=== PATIENT | male | born 1935 | race Caucasian/White ===

== ENCOUNTER → 2017-01-14 | Outpatient (CLI) | payer OTHER ==
[~2017-01-14] MED LIST: ASPI81TA28 PO; ATOR-24 PO; ATOR-26 PO; CLOP1TAB15 PO; FERR1TAB24 PO; FURO20TA PO; INSDGI SC; LEVO750T23 PO; LSN5 PO; LSX20 PO; LSX40 PO; METO1TAB69 PO
[2017-01-14 09:33] LABS: BASO % 0.3 %; BASO ABS # 0.02 K/uL (0-0.2); COMPLETE YES; EOS % 1.9 %; HEMATOCRIT 42.4 % (42-52); LYMPH % 16.6 %; LYMPH ABS # 1.03 K/uL (1.2-3.4); MEAN CELL VOLUME 99.5 fL (80-100); MEAN CORPUSCULAR HGB CONC 34.2 g/dl (32-36); MEAN PLATELET VOLUME 12.2 fL (7.4-10.4); NEUT % 72.2 %; PLATELET COUNT 163 K/uL (130-400); RED BLOOD COUNT 4.26 M/uL (4.7-6.1); WHITE BLOOD COUNT 6.21 K/uL (4.8-10.8)
[2017-01-14 11:44] LABS: ALT/SGPT 66 U/L (12-78); AST/SGOT 24 U/L (15-37); BLOOD UREA NITROGEN 36 mg/dl (7-18); BUN/CREATININE RATIO 22.6 (10-20); CALCIUM 8.9 mg/dl (8.5-10.1); CARBON DIOXIDE 26 mmol/L (21-32); CHLORIDE 96 mmol/L (98-107); GLUCOSE 183 mg/dl (70-99); MAGNESIUM 2.5 mg/dl (1.8-2.4); POTASSIUM 4.4 mmol/L (3.5-5.1); SODIUM 132 mmol/L (136-145)
[2017-01-14 11:50] LABS: ALB/GLOB RATIO 1.2 (0.9-2); ALKALINE PHOSPHATASE 88 U/L (45-117); CHOLESTEROL 105 mg/dl (0-200); CHOLESTEROL/HDL RATIO 2.4; HDL CHOLESTEROL 43 mg/dl; LDL CHOLESTEROL CALCULATED 49 mg/dl; TRIGLYCERIDES 63 mg/dl (0-150); VERY LOW DENSITY LIPOPROT CALC 13 mg/dl
== END | disposition home or self-care (01) ==
LOC: C.LAB1850 08:04
PROVIDERS: ATTEND Internal Medicine
DX: E11.9 Type 2 diabetes mellitus without complications (principal); I25.10 Atherosclerotic heart disease of native coronary artery without angina pectoris; N18.9 Chronic kidney disease, unspecified

== ENCOUNTER 2017-01-27 10:45 | Inpatient (IN) | payer OTHER ==
[~2017-01-27] VITALS: Ht 177.8 cm; Wt 65.9 kg
[~2017-01-27 10:45] MED LIST changes: -ATOR-26 PO; -LEVO750T23 PO; -LSX20 PO; -LSX40 PO
[2017-01-27] MEDS ORDERED: INSDGI SC ×2 (11:14)
[2017-01-27] MEDS ORDERED: ATOR-26 PO (11:15)
[2017-01-27] MEDS ORDERED: LSX40 PO (11:16)
[2017-01-27 11:52] LABS: COMPLETE YES; EOS % 0.1 %; HEMATOCRIT 43.1 % (42-52); IG% 0.1 %; MEAN PLATELET VOLUME 12.3 fL (7.4-10.4); MONO % 11.4 %; NEUT % 83.4 %; PLATELET COUNT 141 K/uL (130-400); RED BLOOD COUNT 4.31 M/uL (4.7-6.1); WHITE BLOOD COUNT 8.04 K/uL (4.8-10.8)
--- NOTE | 2017-01-27 12:01 | DIAGNOSTIC IMAGING REPORT ---
TWO VIEW CHEST CLINICAL HISTORY: Dyspnea. FINDINGS: PA and lateral chest radiographs are compared to study dated 03/14/2016 and correlated with chest CT dated 10/12/2015. A 3-lead cardiac AICD is unchanged in position and partially obscures the left mid chest. The heart is enlarged and there is atherosclerotic calcification of the thoracic aorta. The pulmonary vasculature is noncongested. Enlargement of the central pulmonary arteries suggests pulmonary hypertension. Chronic interstitial thickening is unchanged. There are layering pleural effusions with bibasilar consolidation. The upper lobes appear clear. There is no pneumothorax. The skeletal structures are osteopenic. Degenerative change is noted throughout the thoracic spine. IMPRESSION: 1. Cardiomegaly and AICD. There is no radiographic evidence of congestive failure. 2. Pleural effusions with bibasilar consolidation. This likely represents atelectasis. Correlate clinically for evidence of superimposed pneumonia. Electronically signed by: Uday Bae M.D. 01/27/2017 11:59 AM Dictated Date/Time: 01/27/2017 11:58 AM
[2017-01-27 12:16] LABS: BUN/CREATININE RATIO 37.6 (10-20); CALCIUM 8.8 mg/dl (8.5-10.1); CREATININE 1.9 mg/dl (0.60-1.40)
[2017-01-27] MEDS ORDERED: SODIUM CHLORIDE 0.9% 1000ML 1,000 ML IV STA (12:24)
[2017-01-27 12:29] LABS: CKMB/CK RATIO 2.1 (0-3.0)
[2017-01-27] MEDS ORDERED: ALUMINUM/MAGNESIUM/SIMETH (MAALOX MAX) 30 ML UDC PO PRN (12:30)
[2017-01-27] MEDS ORDERED: ONDANSETRON INJ 2 MG/ML 2 ML VIAL IV PRN (12:30)
[2017-01-27 12:59] VITALS: O2SAT 96; Ht 177.8 cm; Wt 65.9 kg
--- NOTE | 2017-01-27 13:27 | History and Physical ---
History & Physical Date & Time of Service: Jan 27, 2017 at 12:55 Chief Complaint: Sob,No Appetitie Primary Care Physician: Nini Quick PA-C History of Present Illness Source: patient, caregiver, clinic records, hospital records This patient is a 81-year-old male with a history of ischemic cardiomyopathy with an EF of 21% presents the emergency room complaining of worsening shortness of breath over the course of the last 2 weeks. The patient is accompanied by his guardian, Jackeline. 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 His symptoms have not improved. Jackeline also noticed a mild cough and significantly decreased appetite over the last several days. No reported fever. The patient also has a history of CVA and hearing loss. Obtaining any history from him is difficult. From what I can gather, he is complaining of feeling somewhat short of breath. He denies any chest pain or pressure. He denies any abdominal pain , nausea or vomiting. In the emergency department, patient's total bilirubin is noted to be elevated at 1.9. Direct bilirubin is 0.6. Transaminases are also elevated. Lipase is normal. No white count noted. Patient's creatinine is slightly worse when compared to prior at 1.9. Chest x-ray is notable for a right lower lobe infiltrate and bilateral pleural effusions right greater than left. 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) Immunizations History of Influenza Vaccine: No History of Tetanus Vaccine?: No History of Pneumococcal: No History of Hepatitis B Vaccine: No Multi-Drug Resistant Organisms History of MDRO: No Allergies Coded Allergies: No Known Allergies (Verified , 03/11/16) Home Medications Scheduled Aspirin (Aspirin Ec), 81 MG PO QAM Atorvastatin (Lipitor), 80 MG PO QAM Clopidogrel (Plavix), 75 MG PO QAM Ferrous Sulfate (Feosol), 1 TAB PO BIDM Furosemide (Furosemide), 40 MG PO QAM Metoprolol Succ (Toprol Xl) (Toprol-Xl ), 100 MG PO DAILY Scheduled PRN Insulin Glargine (Lantus), 8 UNITS SC QAM PRN for PRN Insulin Glargine (Lantus), 13 UNIT SC QPM PRN for PRN Review of Systems 10 system review performed and negative unless noted in HPI or below Physical Exam Vital Signs Date Time Temp Pulse Resp B/P Pulse Ox O2 Delivery O2 Flow Rate FiO2 01/27/17 12:27 36.3 77 18 100/71 96 Nasal Cannula 2.0 01/27/17 12:16 75 01/27/17 11:24 100 Nasal Cannula 2.0 01/27/17 11:12 100 Nasal Cannula 2.0 01/27/17 11:04 69 01/27/17 11:02 92 Room Air 01/27/17 10:49 74 22 116/83 96 Room Air VITALS: Vitals are noted on the nurse's note and reviewed by myself. Vital signs stable. GENERAL: 81-year-old male, ill in appearance, in no apparent distress, pleasant SKIN: Mildly jaundiced HEAD: Normocephalic atraumatic. EYES: Pupils equal round and reactive to light and accommodation. Conjunctivae icteric. Extraocular movements intact. MOUTH: Mucous membranes dry. No exudate noted. NECK: JVD noted. No lymphadenopathy HEART: Regular rate and rhythm without murmurs gallops or rubs. LUNGS: Decreased breath sounds at the bases bilaterally. No wheezing. No tachypnea or accessory muscle use noted. Saturating at 87% on 2 L. ABDOMEN: Positive bowel sounds x 4.Soft, nontender, + hepatomegaly. No guarding or rebound tenderness. MUSCULOSKELETAL: +1 pitting edema noted in the lower extremity is bilaterally. No erythema or tenderness appreciated. NEURO: Patient was alert and oriented to person and place. No focal motor deficits noted. Diagnostics Laboratory Results 01/27/17 11:35 Red Blood Count 4.31, Mean Corpuscular Volume 100.0, Mean Corpuscular Hemoglobin 35.0, Mean Corpuscular Hemoglobin Concent 35.0, Mean Platelet Volume 12.3, Neutrophils (%) (Auto) 83.4, Lymphocytes (%) (Auto) 5.0, Monocytes (%) ( Auto) 11.4, Eosinophils (%) (Auto) 0.1, Basophils (%) (Auto) 0.0, Neutrophils # (Auto) 6.70, Lymphocytes # (Auto) 0.40, Monocytes # (Auto) 0.92, Eosinophils # ( Auto) 0.01, Basophils # (Auto) 0.00 01/27/17 11:35 Test 01/27/17 11:35 01/27/17 13:12 White Blood Count 8.04 K/uL (4.8-10.8) Red Blood Count 4.31 M/uL (4.7-6.1) Hemoglobin 15.1 g/dL (14.0-18.0) Hematocrit 43.1 % (42-52) Mean Corpuscular Volume 100.0 fL (80-100) Mean Corpuscular Hemoglobin 35.0 pg (25-34) Mean Corpuscular Hemoglobin Concent 35.0 g/dl (32-36) Platelet Count 141 K/uL (130-400) Mean Platelet Volume 12.3 fL (7.4-10.4) Neutrophils (%) (Auto) 83.4 % Lymphocytes (%) (Auto) 5.0 % Monocytes (%) (Auto) 11.4 % Eosinophils (%) (Auto) 0.1 % Basophils (%) (Auto) 0.0 % Neutrophils # (Auto) 6.70 K/uL (1.4-6.5) Lymphocytes # (Auto) 0.40 K/uL (1.2-3.4) Monocytes # (Auto) 0.92 K/uL (0.11-0.59) Eosinophils # (Auto) 0.01 K/uL (0-0.5) Basophils # (Auto) 0.00 K/uL (0-0.2) RDW Standard Deviation 54.2 fL (36.4-46.3) RDW Coefficient of Variation 15.2 % (11.5-14.5) Immature Granulocyte % (Auto) 0.1 % Immature Granulocyte # (Auto) 0.01 K/uL (0.00-0.02) Anion Gap 9.0 mmol/L (3-11) Est Creatinine Clear Calc Drug Dose 28.5 ml/min Estimated GFR () 38.0 Estimated GFR (Non- 32.8 BUN/Creatinine Ratio 37.6 (10-20) Calcium Level 8.8 mg/dl (8.5-10.1) Magnesium Level 3.0 mg/dl (1.8-2.4) Total Bilirubin 1.9 mg/dl (0.2-1) Direct Bilirubin 0.6 mg/dl (0-0.2) Aspartate Amino Transf (AST/SGOT) 97 U/L (15-37) Alanine Aminotransferase (ALT/SGPT) 363 U/L (12-78) Alkaline Phosphatase 136 U/L (45-117) Lactate Dehydrogenase 251 U/L (87-241) Total Creatine Kinase 71 U/L (39-308) Creatine Kinase MB 1.5 ng/ml (0.5-3.6) Creatine Kinase MB Ratio 2.1 (0-3.0) Troponin I 0.214 ng/ml (0-0.045) Total Protein 7.0 gm/dl (6.4-8.2) Albumin 3.5 gm/dl (3.4-5.0) Lipase 260 U/L (73-393) Results Past 24 Hours Test 01/27/17 11:35 01/27/17 12:39 Range/Units White Blood Count 8.04 4.8-10.8 K/uL Red Blood Count 4.31 4.7-6.1 M/uL Hemoglobin 15.1 14.0-18.0 g/dL Hematocrit 43.1 42-52 % Mean Corpuscular Volume 100.0 80-100 fL Mean Corpuscular Hemoglobin 35.0 25-34 pg Mean Corpuscular Hemoglobin Concent 35.0 32-36 g/dl Platelet Count 141 130-400 K/uL Mean Platelet Volume 12.3 7.4-10.4 fL Neutrophils (%) (Auto) 83.4 % Lymphocytes (%) (Auto) 5.0 % Monocytes (%) (Auto) 11.4 % Eosinophils (%) (Auto) 0.1 % Basophils (%) (Auto) 0.0 % Neutrophils # (Auto) 6.70 1.4-6.5 K/uL Lymphocytes # (Auto) 0.40 1.2-3.4 K/uL Monocytes # (Auto) 0.92 0.11-0.59 K/uL Eosinophils # (Auto) 0.01 0-0.5 K/uL Basophils # (Auto) 0.00 0-0.2 K/uL RDW Standard Deviation 54.2 36.4-46.3 fL RDW Coefficient of Variation 15.2 11.5-14.5 % Immature Granulocyte % (Auto) 0.1 % Immature Granulocyte # (Auto) 0.01 0.00-0.02 K/uL Sodium Level 140 136-145 mmol/L Potassium Level 4.0 3.5-5.1 mmol/L Chloride Level 102 98-107 mmol/L Carbon Dioxide Level 29 21-32 mmol/L Anion Gap 9.0 3-11 mmol/L Blood Urea Nitrogen 71 7-18 mg/dl Creatinine 1.90 0.60-1.40 mg/dl Est Creatinine Clear Calc Drug Dose 28.5 ml/min Estimated GFR () 38.0 Estimated GFR (Non- 32.8 BUN/Creatinine Ratio 37.6 10-20 Random Glucose 232 70-99 mg/dl Calcium Level 8.8 8.5-10.1 mg/dl Magnesium Level 3.0 1.8-2.4 mg/dl Total Bilirubin 1.9 0.2-1 mg/dl Direct Bilirubin 0.6 0-0.2 mg/dl Aspartate Amino Transf (AST/SGOT) 97 15-37 U/L Alanine Aminotransferase (ALT/SGPT) 363 12-78 U/L Alkaline Phosphatase 136 45-117 U/L Lactate Dehydrogenase 251 87-241 U/L Total Creatine Kinase 71 39-308 U/L Creatine Kinase MB 1.5 0.5-3.6 ng/ml Creatine Kinase MB Ratio 2.1 0-3.0 Troponin I 0.214 0-0.045 ng/ml Total Protein 7.0 6.4-8.2 gm/dl Albumin 3.5 3.4-5.0 gm/dl Lipase 260 73-393 U/L Microbiology Results 01/27/17 Blood Culture, Dean Batch Pending 01/27/17 Blood Culture, Dean Batch Pending Diagnostic Radiology TWO VIEW CHEST CLINICAL HISTORY: Dyspnea. FINDINGS: PA and lateral chest radiographs are compared to study dated 03/14/2016 and correlated with chest CT dated 10/12/2015. A 3-lead cardiac AICD is unchanged in position and partially obscures the left mid chest. The heart is enlarged and there is atherosclerotic calcification of the thoracic aorta. The pulmonary vasculature is noncongested. Enlargement of the central pulmonary arteries suggests pulmonary hypertension. Chronic interstitial thickening is unchanged. There are layering pleural effusions with bibasilar consolidation. The upper lobes appear clear. There is no pneumothorax. The skeletal structures are osteopenic. Degenerative change is noted throughout the thoracic spine. IMPRESSION: 1. Cardiomegaly and AICD. There is no radiographic evidence of congestive failure. 2. Pleural effusions with bibasilar consolidation. This likely represents atelectasis. Correlate clinically for evidence of superimposed pneumonia. Electronically signed by: Uday Bae M.D. 01/27/2017 11:59 AM Dictated Date/Time: 01/27/2017 11:58 AM The status of this report is Signed. Draft = Not yet reviewed or approved by Radiologist. Signed = Reviewed and approved by Radiologist. <AttendingPhy></AttendingPhy> <FamilyPhy>Nini Quick PA-C</FamilyPhy> < PrimaryPhy>Nini Quick PA-C</PrimaryPhy> <UnitNumber>[id number]</ UnitNumber> <VisitNumber>[id number]</VisitNumber> <PatientName>HEATHER SMITH </PatientName> <DateOfBirth>1935</DateOfBirth> <Location>[facility]</Location> <ServiceDate>01/27/17</ServiceDate> <MNE>ESINDI</MNE> <OrderingPhy>Leni Conner D.O.</OrderingPhy> <OrderingPhyMNE>f rep ord dr srivastava</OrderingPhyMNE> < DictatingPhyMNE>f rep dict dr srivastava</DictatingPhyMNE> <CCListMNE>f rep ct atif</ CCListMNE> <AdmittingPhyMNE>f pt admit dr srivastava</AdmittingPhyMNE> <AttendingPhyMNE >f pt attend dr srivastava</AttendingPhyMNE> <ConsultingPhyMNE>f pt consult dr srivastava</ConsultingPhyMNE> <FamilyPhyMNE>f pt fam dr srivastava</FamilyPhyMNE> <OtherPhyMNE>f pt other dr srivastava</OtherPhyMNE> < PrimaryPhyMNE>f pt prim care EKG Dual paced rhythm Rate 76 bpm Impression Assessment and Plan 81-year-old male presents emergency department with main complaint of shortness of breath--? PNA vs possible pneuomonitis, dehydration, ARF, hepatitis Pneumonia -admit to telemetry -Start rocephin, azithromycin -send influenza -O2 pr for sat > 90% -Consider swallow eval if pt is coughing while eating/drinking Hepatitis-? secondary to viral illness vs chemical irritation. Elevated indirect bili. -trend LFTs -hold statin -liver US -check mono Ischemic cardiomyopathy, Chronic systolic CHF. EF 20 % -Hold today's dose of lasix -monitor I&O's Elevated troponin-no chest pain. Likely secondary to renal fxn. Also elevated in february 2016 -monitor in tele -trend enzymes Acute on Chronic Kidney disease stage III-baseline cr 1.6 -hold lasix -monitor PRP CAD hx CA -continue metoprolol ER 100 mg daily, ASA 81 mg daily, Plavix 75 mg daily DM-pt noncompliant with Lantus at home -Prescribed Lantus 8 u in the morning and 13 u at night-->has not been taking. Will continue to hold -ISS -ADA diet DVT prophylaxis -heparin 5000 u subQ BID -TEDS, SCDs CODE STATUS -LEVEL V DO NO RESUSCITATE PA Physician Supervision Note: I interviewed and examined the patient. Discussed with Roma Mosley PAC and agree with findings and plan as documented in the note. Any exceptions or clarifications are listed here: PT presents with decreased appetite, appearing jaundice and hepatic irritation, does take atorvostatin. Has [employer]LECT[employer]ER with small b/l pleural effusions. Has RLL changes on cxr and due to previous stroke has some dysphagia, question if pneumoina vitals reviewed Chest with reg car with murmur, lungs have decrease bs right base and fine rales just at bases abd is soft , liver edge is palpable and non tender labs show elevated indirect bili, transaminases and alk phos and acute renal failure on ckd3 A/P 81 M with hepatitis presumed to be chemical from statin, RLL pneumonia and lew Hepatitis, stop statin, check viral titres RLL pneumonia, no real sx some cough, ceftriaxone and azithro, mech soft diet ? swallow eval AKF, hold lasix, hesitant to give more fluid that ER bolus given [employer] and fact that pt has peripheral LE edema and some JVD DM, pt usually does not take lantus as RX, will use ssi and diabetic diet pt is a DNR Documented By: Anant Zhang Level of Care Telemetry Resuscitation Status DO NOT RESUSCITATE VTE Prophylaxis VTE Risk Assessment Done? Y/N: Yes Risk Level: Moderate Given or contraindicated: Unfractionated heparin SQ, T.E.D. Stockings, SCD's
[2017-01-27] MEDS ORDERED: GLUCOSE 40% GEL 15 GM TUBE PO PRN (14:15)
[2017-01-27] MEDS ORDERED: DEXTROSE 50% 50 ML SYR IV PRN (14:15)
[2017-01-27] MEDS ORDERED: GLUCAGON FOR INJ 1 MG VIAL SQ PRN (14:15)
[2017-01-27] MEDS ORDERED: GLUCOSE 10 TABS/TUBE PO PRN (14:15)
[2017-01-27 14:52] LABS: URINE APPEARANCE CLEAR (CLEAR); URINE BILIRUBIN NEG (NEG); URINE COLOR YELLOW; URINE EPITHELIAL CELL AUTO >30 /lpf (0-5); URINE NITRITE NEG (NEG); URINE SPECIFIC GRAVITY 1.012 (1.000-1.030); UROBILINOGEN NEG (NEG)
[2017-01-27] MEDS ORDERED: AZITHROMYCIN IV 500 MG in DEXTROSE 5% 250ML 250 ML IV SCH (15:00)
[2017-01-27] MEDS: CEFTRIAXONE SOD INJ 1 GM in DEXTROSE 5% ADD-VANTAGE 50ML 50 ML IV SCH (15:05)
[2017-01-27 15:09] LABS: MANUAL MICROSCOPIC REQUIRED? NO; REVIEW REQ? YES
[2017-01-27 15:20] VITALS: BP 119/79; PULSE 61; TEMP 36.5; O2SAT 97
--- NOTE | 2017-01-27 15:26 | DIAGNOSTIC IMAGING REPORT ---
ULTRASOUND RIGHT UPPER QUADRANT ABDOMEN CLINICAL HISTORY: Jaundice. Elevated bilirubin. COMPARISON STUDY: Abdominal ultrasound dated 10/08/2015. TECHNIQUE: Real-time, grayscale, and color flow sonography of the right upper quadrant of the abdomen was performed. Images are reviewed in the transverse and longitudinal planes. FINDINGS: Liver: The liver is normal in size and demonstrates heterogeneously increased echotexture consistent with hepatic steatosis. Fatty sparing is noted adjacent to gallbladder fossa. There is no intrahepatic biliary ductal dilatation. The main portal vein is patent. Gallbladder: Mobile calcified gallstones are identified. There is nonspecific gallbladder wall thickening which measures up to 4 mm. A sonographic Blandon's sign is reportedly absent. Nonspecific fluid is seen adjacent to the liver. The common bile duct measures up to 0.4 cm in diameter. Pancreas: Visualized portions of the pancreatic head and body are normal in appearance. Right kidney: Survey images of the right kidney demonstrate mild cortical atrophy. There is no hydronephrosis. Right renal cysts are identified and measure up to 4.6 cm, some of which are minimally complex. Ascites: There is trace perihepatic ascites. Pleural spaces: A right pleural effusion is identified. IMPRESSION: 1. Hepatic steatosis. 2. Cholelithiasis. There is nonspecific gallbladder wall thickening which may be related to adjacent hepatocellular disease and/or ascites. There is no convincing sonographic evidence of acute cholecystitis. If there is strong clinical concern for acute cholecystitis then a nuclear hepatobiliary scan should be considered to assess for patency of the cystic duct. 3. Right pleural effusion. 4. Small volume of abdominal ascites. Electronically signed by: Uday Bae M.D. 01/27/2017 3:24 PM Dictated Date/Time: 01/27/2017 3:21 PM
[2017-01-27 15:30] LABS: INR 1.3 (0.9-1.1); PARTIAL THROMBOPLASTIN RATIO 1.1; PROTHROMBIN TIME (PATIENT) 13.5 SECONDS (9.0-12.0)
[2017-01-27 16:00] VITALS: O2SAT 95
[2017-01-27] MEDS ORDERED: SODIUM CHLORIDE 0.9% 500ML 500 ML IV SCH (16:00)
[2017-01-27] MEDS: INSULIN ASPART 100 UNITS/ML 3 ML PEN SC SCH ×3 (16:29→20:38)
[2017-01-27 17:18] LABS: INFLUENZA A PCR Neg for Influ A (NEG); INFLUENZA B PCR Neg for Influ B (NEG)
[2017-01-27 19:15] VITALS: BP 93/63; PULSE 70; TEMP 36.3; O2SAT 97
[2017-01-27 20:00] VITALS: O2SAT 97
[2017-01-27] MEDS: HEPARIN SOD 5000 UNIT/0.5 ML CARP SQ SCH (20:38)
[2017-01-28] VITALS (8 sets, daily range): BP systolic 86–110; BP diastolic 72–110; PULSE 64–86; TEMP 36.3–36.6; O2SAT 92–99
[2017-01-28 06:35] LABS: BUN/CREATININE RATIO 36.4 (10-20); CALCIUM 8.7 mg/dl (8.5-10.1); CREATININE 1.9 mg/dl (0.60-1.40)
[2017-01-28] MEDS: INSULIN ASPART 100 UNITS/ML 3 ML PEN SC SCH ×4 (07:00→20:37)
[2017-01-28 07:40] LABS: HEMATOCRIT 42.4 % (42-52); MEAN CELL VOLUME 99.3 fL (80-100); MEAN CORPUSCULAR HEMOGLOBIN 34.7 pg (25-34); MEAN CORPUSCULAR HGB CONC 34.9 g/dl (32-36); MEAN PLATELET VOLUME 12.2 fL (7.4-10.4); PLATELET COUNT 124 K/uL (130-400); PLT ESTIMATE DECREASED; RED BLOOD COUNT 4.27 M/uL (4.7-6.1); WHITE BLOOD COUNT 8.93 K/uL (4.8-10.8)
[2017-01-28] MEDS ORDERED: FUROSEMIDE 40 MG TAB PO SCH (09:00)
[2017-01-28] MEDS ORDERED: ATORVASTATIN 20 MG TAB PO SCH (09:00)
[2017-01-28] MEDS: ASPIRIN 81 MG ECTAB PO SCH (09:47)
[2017-01-28] MEDS: CLOPIDOGREL BISULFATE 75 MG TAB PO SCH (09:47)
[2017-01-28] MEDS: METOPROLOL SUCC 50MG EXT REL TAB PO SCH (09:47)
[2017-01-28] MEDS: HEPARIN SOD 5000 UNIT/0.5 ML CARP SQ SCH ×2 (09:48→20:40)
--- NOTE | 2017-01-28 12:15 | Hospitalist Progress Note ---
Hospitalist Progress Note Date of Service Jan 28, 2017. (Celena Armendariz ., DINAH) Subjective Pt evaluation today including: conversation w/ patient, physical exam, chart review, lab review, review of studies, review of inpatient medication list Voiding: no voiding problems Difficult to obtain ROS from patient secondary to expressive aphasia. He denies any chest pain or shortness of breath. Patient is resting comfortably on 3 L nasal cannula. The patient denies fevers, chills, sweats, chest pain, palpitations, claudication, cough, wheezing, shortness of breath, nausea, vomiting, abdominal pain, dysuria, hematuria, urinary retention, paralysis, weakness, numbness and tingling. Additional Comments: See HPI for pertinent positives and negatives. All other systems reviewed and negative. (Celena Armendariz, DINAH) Objective Vital Signs Date Time Temp Pulse Resp B/P Pulse Ox O2 Delivery O2 Flow Rate FiO2 01/28/17 10:45 67 24 103/83 96 3.0 01/28/17 10:32 86 01/28/17 07:29 36.6 66 19 105/74 92 3.0 01/28/17 04:26 36.6 64 19 106/72 97 Nasal Cannula 3.0 01/28/17 04:00 Nasal Cannula 3.0 01/28/17 00:00 Nasal Cannula 3.0 01/28/17 00:00 36.3 64 20 101/73 95 Nasal Cannula 3.0 01/27/17 20:00 97 Nasal Cannula 3.0 01/27/17 19:15 36.3 70 21 93/63 97 Nasal Cannula 2.0 01/27/17 16:00 95 Nasal Cannula 3.0 01/27/17 15:20 36.5 61 19 119/79 97 Nasal Cannula 2.0 01/27/17 13:46 95 23 102/69 97 01/27/17 12:59 96 Nasal Cannula 2.0 01/27/17 12:27 36.3 77 18 100/71 96 Nasal Cannula 2.0 01/27/17 12:16 75 01/27/17 11:24 100 Nasal Cannula 2.0 01/27/17 11:12 100 Nasal Cannula 2.0 (Celena Armendariz PA-C) Physical Exam General Appearance: WD/WN, no apparent distress Eyes: normal inspection, PERRL, sclerae normal ENT: normal ENT inspection, hearing grossly normal, pharynx normal, + pertinent finding (dry oral mucosa) Neck: supple, no JVD, trachea midline Respiratory/Chest: lungs clear, normal breath sounds, no respiratory distress, + decreased breath sounds (bases) Cardiovascular: regular rate, rhythm, no gallop, no murmur Abdomen: normal bowel sounds, non tender, soft Extremities: non-tender, normal inspection, no pedal edema Neurologic/Psychiatric: alert, normal mood/affect, + aphasia (residual from prior CVA), + disoriented (difficult to determine orientation due to aphasia. pt would not tell me name, , town name or year) Skin: normal color, warm/dry, no rash (Celena Armendariz ., DINAH) Laboratory Results Last 24 Hours Test 01/27/17 11:35 01/27/17 13:12 01/27/17 15:12 01/27/17 16:04 White Blood Count 8.04 K/uL Red Blood Count 4.31 M/uL Hemoglobin 15.1 g/dL Hematocrit 43.1 % Mean Corpuscular Volume 100.0 fL Mean Corpuscular Hemoglobin 35.0 pg Mean Corpuscular Hemoglobin Concent 35.0 g/dl Platelet Count 141 K/uL Mean Platelet Volume 12.3 fL Neutrophils (%) (Auto) 83.4 % Lymphocytes (%) (Auto) 5.0 % Monocytes (%) (Auto) 11.4 % Eosinophils (%) (Auto) 0.1 % Basophils (%) (Auto) 0.0 % Neutrophils # (Auto) 6.70 K/uL Lymphocytes # (Auto) 0.40 K/uL Monocytes # (Auto) 0.92 K/uL Eosinophils # (Auto) 0.01 K/uL Basophils # (Auto) 0.00 K/uL RDW Standard Deviation 54.2 fL RDW Coefficient of Variation 15.2 % Immature Granulocyte % (Auto) 0.1 % Immature Granulocyte # (Auto) 0.01 K/uL Sodium Level 140 mmol/L Potassium Level 4.0 mmol/L Chloride Level 102 mmol/L Carbon Dioxide Level 29 mmol/L Anion Gap 9.0 mmol/L Blood Urea Nitrogen 71 mg/dl Creatinine 1.90 mg/dl Est Creatinine Clear Calc Drug Dose 28.5 ml/min Estimated GFR () 38.0 Estimated GFR (Non- 32.8 BUN/Creatinine Ratio 37.6 Random Glucose 232 mg/dl Calcium Level 8.8 mg/dl Magnesium Level 3.0 mg/dl Total Bilirubin 1.9 mg/dl Direct Bilirubin 0.6 mg/dl Aspartate Amino Transf (AST/SGOT) 97 U/L Alanine Aminotransferase (ALT/SGPT) 363 U/L Alkaline Phosphatase 136 U/L Lactate Dehydrogenase 251 U/L Total Creatine Kinase 71 U/L Creatine Kinase MB 1.5 ng/ml Creatine Kinase MB Ratio 2.1 Troponin I 0.214 ng/ml Total Protein 7.0 gm/dl Albumin 3.5 gm/dl Lipase 260 U/L Monoscreen NEG Prothrombin Time 13.5 SECONDS Prothromb Time International Ratio 1.3 Activated Partial Thromboplast Time 28.8 SECONDS Partial Thromboplastin Ratio 1.1 Lactic Acid Level 2.9 mmol/L Bedside Glucose 181 mg/dl Test 01/27/17 20:07 01/28/17 05:40 01/28/17 06:33 Bedside Glucose 223 mg/dl 106 mg/dl White Blood Count 8.93 K/uL Red Blood Count 4.27 M/uL Hemoglobin 14.8 g/dL Hematocrit 42.4 % Mean Corpuscular Volume 99.3 fL Mean Corpuscular Hemoglobin 34.7 pg Mean Corpuscular Hemoglobin Concent 34.9 g/dl RDW Standard Deviation 54.0 fL RDW Coefficient of Variation 15.1 % Platelet Count 124 K/uL Mean Platelet Volume 12.2 fL Platelet Estimate DECREASED Sodium Level 141 mmol/L Potassium Level 4.0 mmol/L Chloride Level 103 mmol/L Carbon Dioxide Level 25 mmol/L Anion Gap 13.0 mmol/L Blood Urea Nitrogen 69 mg/dl Creatinine 1.90 mg/dl Est Creatinine Clear Calc Drug Dose 29.1 ml/min Estimated GFR () 38.0 Estimated GFR (Non- 32.8 BUN/Creatinine Ratio 36.4 Random Glucose 109 mg/dl Calcium Level 8.7 mg/dl Total Bilirubin 1.6 mg/dl Direct Bilirubin 0.5 mg/dl Aspartate Amino Transf (AST/SGOT) 123 U/L Alanine Aminotransferase (ALT/SGPT) 340 U/L Alkaline Phosphatase 193 U/L Troponin I 0.252 ng/ml Total Protein 6.6 gm/dl Albumin 3.2 gm/dl (Armendariz, Celena ., PA-C) Diagnostic Results Reviewed the following studies and agree with interpretation as follows: Patient Name: HEATHER SMITH Unit Number: [id number] Dictated: 01/27/171520 Transcribed: 01/27/171520 EV Printed Date/Time: [~ rep prt dt]/[~ rep prt tm] [~ rep ct labl] - [~ rep ct ivnm] [facility] Radiology Department [place], [place] [id number] Dictated: 01/27/171520 Transcribed: 01/27/171520 EV Printed Date/Time: [~ rep prt dt]/[~ rep prt tm] [~ rep ct labl] - [~ rep ct ivnm] Patient: HEATHER SMITH Address1: [address] [place] [address] Rec: [id number] Address2: Acct ID: [id number] [facility] Zip: [place] [address] Date: 1935 Sex: M Room/Bed: [facility] Ref Phy: Nini Quick PA-C SC: C.2E Att Phy: Anant Zhang M.D. Report #: [id number] Jeny Phy: Nini Quick PA-C Test: LVR Admit Phy: Anant Zhang M.D. Side Framer: ASHLEY Interpreting Phy: Uday Bae M.D. Diagnosis: ELEVATED TRIPONIN RLL PNEUMONIA Ordering Phy: Anant Zhang M.D. Service Date: 01/27/17 Admit Date: 01/27/1703/12/17 MNE: [id number] CONF: DICTATED BY: Uday Bae M.D.]] CC: Anant Zhang M.D. Delligatti, Danielle PA-C Endcc: [~ rep ct add3]] ULTRASOUND RIGHT UPPER QUADRANT ABDOMEN CLINICAL HISTORY: Jaundice. Elevated bilirubin. COMPARISON STUDY: Abdominal ultrasound dated 10/08/2015. TECHNIQUE: Real-time, grayscale, and color flow sonography of the right upper quadrant of the abdomen was performed. Images are reviewed in the transverse and longitudinal planes. FINDINGS: Liver: The liver is normal in size and demonstrates heterogeneously increased echotexture consistent with hepatic steatosis. Fatty sparing is noted adjacent to gallbladder fossa. There is no intrahepatic biliary ductal dilatation. The main portal vein is patent. Gallbladder: Mobile calcified gallstones are identified. There is nonspecific gallbladder wall thickening which measures up to 4 mm. A sonographic Blandon's sign is reportedly absent. Nonspecific fluid is seen adjacent to the liver. The common bile duct measures up to 0.4 cm in diameter. Pancreas: Visualized portions of the pancreatic head and body are normal in appearance. Right kidney: Survey images of the right kidney demonstrate mild cortical atrophy. There is no hydronephrosis. Right renal cysts are identified and measure up to 4.6 cm, some of which are minimally complex. Ascites: There is trace perihepatic ascites. Pleural spaces: A right pleural effusion is identified. IMPRESSION: 1. Hepatic steatosis. 2. Cholelithiasis. There is nonspecific gallbladder wall thickening which may be related to adjacent hepatocellular disease and/or ascites. There is no convincing sonographic evidence of acute cholecystitis. If there is strong clinical concern for acute cholecystitis then a nuclear hepatobiliary scan should be considered to assess for patency of the cystic duct. 3. Right pleural effusion. 4. Small volume of abdominal ascites. Electronically signed by: Uday Bae M.D. 01/27/2017 3:24 PM Dictated Date/Time: 01/27/2017 3:21 PM The status of this report is Signed. Draft = Not yet reviewed or approved by Radiologist. Signed = Reviewed and approved by Radiologist. <AttendingPhy>Anant Zhang M.D.</AttendingPhy> <FamilyPhy>Nini Quick PA-C</FamilyPhy> <PrimaryPhy>Nini Quick PA-C</PrimaryPhy> < UnitNumber>[id number]</UnitNumber> <VisitNumber>[id number]</VisitNumber> < PatientName>HEATHER SMITH</PatientName> <DateOfBirth>1935</DateOfBirth> <Location>C.2E</Location> <ServiceDate>01/27/17</ServiceDate> <MNE>ESINDI</MNE> <OrderingPhy>Anant Zhang M.D.</OrderingPhy> <OrderingPhyMNE>f rep ord dr srivastava</OrderingPhyMNE> <DictatingPhyMNE>f rep dict dr srivastava</DictatingPhyMNE> < CCListMNE>f rep ct mne</CCListMNE> <AdmittingPhyMNE>f pt admit dr srivastava</ AdmittingPhyMNE> <AttendingPhyMNE>f pt attend dr srivastava</AttendingPhyMNE> <ConsultingPhyMNE>f pt consult dr srivastava</ConsultingPhyMNE> <FamilyPhyMNE>f pt fam dr srivastava</FamilyPhyMNE> <OtherPhyMNE>f pt other dr srivastava</OtherPhyMNE> < PrimaryPhyMNE>f pt prim care dr srivastava</PrimaryPhyMNE> <ReferringPhyMNE>f pt referring dr srivastava</ReferringPhyMNE> (Celena Armendariz ., PAKwabenaC) Assessment and Plan 81 y/o male history of ischemic cardiomyopathy with an EF of 21%, CAD with h/o MA, s/p AICD placement (2016), h/o CVA with hemorrhagic conversion, aphasia, diabetes mellitus, hypertension, PFO, and CKD stage III who presented to the ED with SOB. CXR shows pleural effusions and bibasilar consolidations. Initial labs significant for elevated LFTs and elevated creatinine above baseline. Presumed community acquired pneumonia -Admit to telemetry -Continue Rocephin 1 gm IV qd -D/C azithromycin due to prolonged QT -Start doxycycline 100 mg IV q12h -Influenza negative Elevated LFTs--? secondary to illness vs statin vs biliary obstruction -Total bilirubin improved on 01/28 to 1.6 from 1.9 -LFTs otherwise mostly stable, still elevated -Continue to trend LFTs -Hold atorvastatin -Liver U/S: hepatic steatosis, cholelithiasis, right pleural effusion, small abdominal ascites -Collier negative -HIDA ordered Ischemic cardiomyopathy, chronic systolic CHF with LVEF 21 % -TRAE unchanged, continue to hold Lasix for now -Check pro-BNP at 1400 -Continue to monitor Elevated troponin--no chest pain. Likely secondary to renal fxn. Appears chronic. Elevated to 0.6-0.8 in February 2016 -Monitor in tele. No acute events overnight on telemetry. Patient was paced with PVCs -Troponin trending upward slightly at 0.252 -Repeat troponin at 1400 Acute on Chronic Kidney disease stage III-baseline cr 1.6 -Creatinine still 1.9 -Hold Lasix -Continue to monitor CAD w/hx MA -Continue metoprolol ER 100 mg PO qd, ASA 81 mg PO qd, Plavix 75 mg PO qd DM--pt noncompliant with Lantus at home -Prescribed Lantus 8 units SC qam and 13 units SC qpm -->has not been taking. Will continue to hold -Insulin sliding scale -Check BSGs q ac and qhs DVT prophylaxis -Heparin 5000 units SC q12h -TEDS, SCDs Code Status -Level V, DO NOT RESUSCITATE (Celena Armendariz, DINAH) Reviewed: Pt Seen/Exam by Me (Tanya Escalona MD) History Physician Transition Nurse Supervision Note: I interviewed and examined the patient. Discussed with KARSTEN Armendariz and agree with findings and plan as documented in the note. Any exceptions or clarifications are listed here: Pt denies SOB or pain in chest or abd. No events on tele, trop remained elevated but stable. 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 -ok to add lasix back on as BNP >35k and h/o severe CHF -follow renal function -check HIDA to r/o cholecystitis -follow LFTs -follow CXR Documented By: Tanya Escalona (Tanya Escalona MD)
[2017-01-28] MEDS: DOXYCYCLINE HYCLATE 100 MG in DEXTROSE 5% 100ML IV SCH (13:14)
[2017-01-28] MEDS: CEFTRIAXONE SOD INJ 1 GM in DEXTROSE 5% ADD-VANTAGE 50ML 50 ML IV SCH (13:14)
--- NOTE | 2017-01-28 23:38 | EMERGENCY ROOM VISIT NOTE ---
History Report prepared by Moni: Nola Fitch Under the Supervision of: Dr. Leni Conner D.O. 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 He is not eating/drinking, not urinating as much, unsteady on his feet, not sleeping. When he walks he gets sob." Pt is [place] and only speaks a few words, per his norm. History of Present Illness The patient is a 81 year old male who presents to the Emergency Room with complaints of persistent shortness of breath for the past week. The history was provided by his guardian. The patient has had difficulty sleeping for the past week. He is also not eating and drinking normally. His guardian reports that these symptoms began when the patient's water pill was increased. He is also urinating less than usual. The yellowness of his eyes is reported to be abnormal. He has a pacer and has a history of heart disease, stroke, and diabetes. She reports that he has never been a heavy drinker and had chewed tobacco for many years prior to his stroke. Source of History: other (guardian) Onset: last week Position: other (global) Quality: other (SOB) Timing: other (persistent) Associated Symptoms: + urinary symptoms (decreased urinary frequency) Note: Associated symptoms: decrease appetite, decreased fluid intake, decreased sleep Review of Systems See HPI for pertinent positives & negatives. A total of 10 systems reviewed and were otherwise negative. Past Medical & Surgical Medical Problems: (1) Diabetes (2) Elevated troponin (3) Fever (4) Metabolic encephalopathy (5) NSTEMI (non-ST elevated myocardial infarction) (6) Pneumonia (7) RLL pneumonia (8) trifascicular heart block Family History Depression FH: heart disease Hypertension Social History Smoking Status: Never Smoker Alcohol Use: none Drug Use: none Marital Status: single Occupation Status: retired, disabled Current/Historical Medications Scheduled Aspirin (Aspirin Ec), 81 MG PO QAM Atorvastatin (Lipitor), 80 MG PO QAM Clopidogrel (Plavix), 75 MG PO QAM Ferrous Sulfate (Feosol), 1 TAB PO BIDM Furosemide (Furosemide), 40 MG PO QAM Metoprolol Succ (Toprol Xl) (Toprol-Xl ), 100 MG PO DAILY Scheduled PRN Insulin Glargine (Lantus), 8 UNITS SC QAM PRN for PRN Insulin Glargine (Lantus), 13 UNIT SC QPM PRN for PRN Allergies Coded Allergies: No Known Allergies (Verified , 03/11/16) Physical Exam Vital Signs Date Time Temp Pulse Resp B/P Pulse Ox O2 Delivery O2 Flow Rate FiO2 01/27/17 12:27 36.3 77 18 100/71 96 Nasal Cannula 2.0 01/27/17 12:16 75 01/27/17 11:24 100 Nasal Cannula 2.0 01/27/17 11:12 100 Nasal Cannula 2.0 01/27/17 11:04 69 01/27/17 11:02 92 Room Air 01/27/17 10:49 74 22 116/83 96 Room Air Physical Exam HEENT: Head - normocephalic and atraumatic Pupils are equal, round, and reactive to light. Extraocular eye muscles are intact, and sclera are icteric. Nose - moist nasal mucosa without discharge. Mouth - dried, cracked lips. Oropharynx is nonerythematous and there is no tonsillar exudate or edema noted. Neck: Supple; no JVD, nuchal rigidity, cervical lymphadenopathy. Heart: Regular rate and rhythm. There is a normal S1 and S2 with no murmurs, clicks, or gallops appreciated. Lungs: Clear to auscultation bilaterally with no wheezes, rales, or rhonchi. Abdomen: Soft, completely nontender, nondistended, with good bowel sounds. There are no palpable pulsatile masses or hepatosplenomegaly. There is no guarding, rigidity, or rebound noted. Extremities: No evidence of cyanosis, clubbing, or edema. There are easily palpable peripheral pulses. Skin: warm and dry with poor turgor and no rashes. Medical Decision & Procedures ER Provider Diagnostic Interpretation: X-ray results as stated below per interpretation by me and the radiologist: TWO VIEW CHEST CLINICAL HISTORY: Dyspnea. FINDINGS: PA and lateral chest radiographs are compared to study dated 03/14/2016 and correlated with chest CT dated 10/12/2015. A 3-lead cardiac AICD is unchanged in position and partially obscures the left mid chest. The heart is enlarged and there is atherosclerotic calcification of the thoracic aorta. The pulmonary vasculature is noncongested. Enlargement of the central pulmonary arteries suggests pulmonary hypertension. Chronic interstitial thickening is unchanged. There are layering pleural effusions with bibasilar consolidation. The upper lobes appear clear. There is no pneumothorax. The skeletal structures are osteopenic. Degenerative change is noted throughout the thoracic spine. IMPRESSION: 1. Cardiomegaly and AICD. There is no radiographic evidence of congestive failure. 2. Pleural effusions with bibasilar consolidation. This likely represents atelectasis. Correlate clinically for evidence of superimposed pneumonia. Electronically signed by: Uday Bae M.D. 01/27/2017 11:59 AM Dictated Date/Time: 01/27/2017 11:58 AM Laboratory Results Test 01/27/17 00:00 01/27/17 11:35 Urine Color YELLOW Urine Appearance CLEAR (CLEAR) Urine pH 5.0 (4.5-7.5) Urine Specific [place] 1.012 (1.000-1.030) Urine Protein TRACE (NEG) Urine Glucose (UA) NEG (NEG) Urine Ketones NEG (NEG) Urine Occult Blood NEG (NEG) Urine Nitrite NEG (NEG) Urine Bilirubin NEG (NEG) Urine Urobilinogen NEG (NEG) Urine Leukocyte Esterase NEG (NEG) Urine WBC (Auto) 1-5 /hpf (0-5) Urine RBC (Auto) 0-4 /hpf (0-4) Urine Hyaline Casts (Auto) 5-10 /lpf (0-5) Urine Epithelial Cells (Auto) >30 /lpf (0-5) Urine Bacteria (Auto) NEG (NEG) Urine Renal Epithelial Cells 0-5 /lpf (0-5) Influenza Type A (RT-PCR) Neg for Influ A (NEG) Influenza Type B (RT-PCR) Neg for Influ B (NEG) Immature Granulocyte % (Auto) 0.1 % White Blood Count 8.04 K/uL (4.8-10.8) Red Blood Count 4.31 M/uL (4.7-6.1) Hemoglobin 15.1 g/dL (14.0-18.0) Hematocrit 43.1 % (42-52) Mean Corpuscular Volume 100.0 fL (80-100) Mean Corpuscular Hemoglobin 35.0 pg (25-34) Mean Corpuscular Hemoglobin Concent 35.0 g/dl (32-36) Platelet Count 141 K/uL (130-400) Mean Platelet Volume 12.3 fL (7.4-10.4) Neutrophils (%) (Auto) 83.4 % Lymphocytes (%) (Auto) 5.0 % Monocytes (%) (Auto) 11.4 % Eosinophils (%) (Auto) 0.1 % Basophils (%) (Auto) 0.0 % Neutrophils # (Auto) 6.70 K/uL (1.4-6.5) Lymphocytes # (Auto) 0.40 K/uL (1.2-3.4) Monocytes # (Auto) 0.92 K/uL (0.11-0.59) Eosinophils # (Auto) 0.01 K/uL (0-0.5) Basophils # (Auto) 0.00 K/uL (0-0.2) Immature Granulocyte # (Auto) 0.01 K/uL (0.00-0.02) Magnesium Level 3.0 mg/dl (1.8-2.4) Lactate Dehydrogenase 251 U/L (87-241) Total Creatine Kinase 71 U/L (39-308) Creatine Kinase MB 1.5 ng/ml (0.5-3.6) Creatine Kinase MB Ratio 2.1 (0-3.0) Lipase 260 U/L (73-393) Laboratory results per my review. Medications Administered Medications (Trade) Dose Ordered Sig/Em Route Start Time Stop Time Status Last Admin Dose Admin Sodium Chloride (Nss 1000ml) 1,000 ml @ 250 mls/hr Q4H STAT IV 01/27/17 12:24 01/27/17 16:08 DC 01/27/17 12:35 250 MLS/HR Procedure Medications: Sodium Chloride 1000 ml @ 250 mls/hr IV. ECG Indication: altered mental status Rate (beats per minute): 74 Findings: paced rhythm ED Course 1100: The patient was evaluated in room C3. A complete history and physical examination were performed. Nursing notes and previous electronic medical records were reviewed. IV lock was established and labs were drawn as above. A twelve-lead EKG was obtained as described above. Patient had a chest x-ray as described above. 1220: I discussed the patient's case with Dr. Celaya, [facility] [place]. He will be evaluated for further management. 1224: Sodium Chloride 1000 ml @ 250 mls/hr IV. 1226: I reevaluated the patient. His temperature is 36.3. I went over all the results and treatment plan with him and his guardian. They expressed understanding and agreement. He will be evaluated for further management. Medical Decision The patient is a 81 year old male who presents to the ED with SOB. Differential diagnosis includes hepatitis, dehydration, renal failure, UTI, heart failure, and DKA. Labs: No leukocytosis. Stable H & H. BUN 71. Creatinine 1.9. Glucose 232. Magnesium 3. Total bilirubin 1.9, direct bilirubin 0.6. AST 0.6, AST 97, ALT 363 , Alk Phos 136. Troponin 0.214. Lipase normal. Lactic acid 2.71. The patient's guardian has noticed that he is becoming increasingly short of breath and has a significantly decreased appetite. The patient has become extremely weak. Patient has evidence of an acute hepatitis. I am unsure as to the cause of this. The patient is significantly hyperglycemic. Creatinine is elevated above normal for him. I discussed the case with the [facility] hospitalist and they will evaluate for further management. Consults Time Called: 1215 Consulting Physician: Dr. Celaya, [facility] [place] - Internal Medicine Returned Call: 1220 I discussed the patient's case with him. The patient will be evaluated for further management. Impression Primary Impression: Acute kidney injury Additional Impressions: Hyperglycemia Elevated liver function tests Scribe Attestation The scribe's documentation has been prepared under my direction and personally reviewed by me in its entirety. I confirm that the note above accurately reflects all work, treatment, procedures, and medical decision making performed by me. Departure Information Dispostion Being Evaluated By Hospitalist Referrals No Doctor, Assigned (PCP) Patient Instructions My [facility] Problem Qualifiers
[2017-01-29 00:09] VITALS: BP 109/81; PULSE 81; TEMP 36.3; O2SAT 100
[2017-01-29] MEDS: DOXYCYCLINE HYCLATE 100 MG in DEXTROSE 5% 100ML IV SCH ×2 (00:34→11:58)
[2017-01-29 08:09] LABS: MEAN CELL VOLUME 99.3 fL (80-100); MEAN CORPUSCULAR HEMOGLOBIN 34.3 pg (25-34); MEAN CORPUSCULAR HGB CONC 34.5 g/dl (32-36); MEAN PLATELET VOLUME 12.3 fL (7.4-10.4); PLATELET COUNT 117 K/uL (130-400); PLT ESTIMATE DECREASED; RED BLOOD COUNT 4.43 M/uL (4.7-6.1); WHITE BLOOD COUNT 7.75 K/uL (4.8-10.8)
[2017-01-29 08:16] VITALS: BP 109/48; PULSE 66; TEMP 36.4; O2SAT 100
[2017-01-29 08:20] LABS: BUN/CREATININE RATIO 36.9 (10-20); CALCIUM 9.1 mg/dl (8.5-10.1); CREATININE 1.8 mg/dl (0.60-1.40); POTASSIUM 4.2 mmol/L (3.5-5.1)
[2017-01-29] MEDS ORDERED: SINCALIDE INJ 1.3 MCG in SODIUM CHLORIDE 0.9% 100ML 100 ML IV ONE (08:30)
[2017-01-29] MEDS: INSULIN ASPART 100 UNITS/ML 3 ML PEN SC SCH ×4 (08:31→20:56)
[2017-01-29] MEDS ORDERED: FUROSEMIDE 40 MG TAB PO SCH (09:00)
[2017-01-29 09:08] VITALS: BP 110/75; PULSE 63
--- NOTE | 2017-01-29 09:15 | DIAGNOSTIC IMAGING REPORT ---
NUCLEAR MEDICINE HEPATOBILIARY SCAN CLINICAL HISTORY: Gallstones. Elevated liver function tests. COMPARISON: Hepatobiliary scan October 10, 2015 and right upper cartilage ultrasound January 27, 2017. TECHNIQUE: 5.3 mCi of technetium 99m Choletec IV was injected at 8:00 AM on January 29, 2017. Immediately following injection, imaging of the abdomen was carried out for 60 minutes in the anterior projection. FINDINGS: Hepatic uptake of radiotracer is prompt and homogeneous. Activity is first identified within the gallbladder and common bile duct at 10 minutes. Small bowel activity is first noted at 20 minutes. IMPRESSION: Normal hepatobiliary scan. No evidence of acute cholecystitis. Electronically signed by: Lawrence Sotelo M.D. 01/29/2017 9:14 AM Dictated Date/Time: 01/29/2017 9:12 AM
[2017-01-29] MEDS: CLOPIDOGREL BISULFATE 75 MG TAB PO SCH (10:11)
[2017-01-29] MEDS: ASPIRIN 81 MG ECTAB PO SCH (10:11)
[2017-01-29] MEDS: METOPROLOL SUCC 50MG EXT REL TAB PO SCH (10:11)
[2017-01-29] MEDS: HEPARIN SOD 5000 UNIT/0.5 ML CARP SQ SCH ×2 (10:13→21:26)
--- NOTE | 2017-01-29 14:05 | Hospitalist Progress Note ---
Hospitalist Progress Note Date of Service Jan 29, 2017. (Celena Armendariz ., [facility]) Subjective Pt evaluation today including: conversation w/ patient, physical exam, chart review, lab review, review of inpatient medication list Pain: None PO Intake: Tolerating PO diet, decreased appetite Voiding: no voiding problems Difficult to obtain ROS from patient due to excessive aphasia. Patient is able to answer yes and no questions. The patient denies fevers, chills, sweats, chest pain, palpitations, claudication, cough, wheezing, shortness of breath, nausea, vomiting, abdominal pain, dysuria, hematuria, urinary retention, paralysis, weakness, numbness and tingling. Additional Comments: See HPI for pertinent positives and negatives. All other systems reviewed and negative. (Celena Armendariz, [facility]) Objective Vital Signs Date Time Temp Pulse Resp B/P Pulse Ox O2 Delivery O2 Flow Rate FiO2 01/29/17 09:08 63 110/75 01/29/17 08:16 36.4 66 22 109/48 100 Nasal Cannula 1.0 01/29/17 07:44 Nasal Cannula 2.0 01/29/17 00:09 36.3 81 18 109/81 100 01/29/17 00:00 Nasal Cannula 2.0 01/28/17 19:50 Nasal Cannula 3.0 01/28/17 18:45 36.4 70 13 99 3.0 01/28/17 18:03 36.4 70 13 99 3.0 01/28/17 16:00 Nasal Cannula 3.0 01/28/17 15:20 36.4 70 13 104/76 99 Nasal Cannula 3.0 (Celena Armendariz, [facility]) Physical Exam General Appearance: WD/WN, no apparent distress Eyes: normal inspection, PERRL, EOMI ENT: normal ENT inspection, hearing grossly normal, pharynx normal Neck: supple, no JVD, trachea midline Respiratory/Chest: normal breath sounds, no respiratory distress, + decreased breath sounds Cardiovascular: regular rate, rhythm, no gallop, + systolic murmur Abdomen: normal bowel sounds, non tender, soft Extremities: non-tender, normal inspection, + swelling (1+ pitting edema in lower extremities bilaterally) Neurologic/Psychiatric: alert, normal mood/affect, + aphasia, + pertinent finding (difficult to ascertain orientation due to aphasia) Skin: normal color, warm/dry, no rash (Celena Armendariz PA-C) Laboratory Results Last 24 Hours Test 01/28/17 14:36 01/28/17 15:56 01/28/17 20:20 01/29/17 07:08 Troponin I 0.232 ng/ml Pro-B-Type Natriuretic Peptide > 96395 pg/ml Bedside Glucose 198 mg/dl 135 mg/dl White Blood Count 7.75 K/uL Red Blood Count 4.43 M/uL Hemoglobin 15.2 g/dL Hematocrit 44.0 % Mean Corpuscular Volume 99.3 fL Mean Corpuscular Hemoglobin 34.3 pg Mean Corpuscular Hemoglobin Concent 34.5 g/dl RDW Standard Deviation 54.5 fL RDW Coefficient of Variation 15.2 % Platelet Count 117 K/uL Mean Platelet Volume 12.3 fL Platelet Estimate DECREASED Sodium Level 139 mmol/L Potassium Level 4.2 mmol/L Chloride Level 102 mmol/L Carbon Dioxide Level 24 mmol/L Anion Gap 13.0 mmol/L Blood Urea Nitrogen 66 mg/dl Creatinine 1.80 mg/dl Est Creatinine Clear Calc Drug Dose 30.7 ml/min Estimated GFR () 40.6 Estimated GFR (Non- 35.0 BUN/Creatinine Ratio 36.9 Random Glucose 110 mg/dl Calcium Level 9.1 mg/dl Magnesium Level 3.0 mg/dl Total Bilirubin 1.5 mg/dl Direct Bilirubin 0.4 mg/dl Aspartate Amino Transf (AST/SGOT) 63 U/L Alanine Aminotransferase (ALT/SGPT) 251 U/L Alkaline Phosphatase 174 U/L Total Protein 6.7 gm/dl Albumin 3.2 gm/dl Test 01/29/17 07:46 01/29/17 11:28 Bedside Glucose 116 mg/dl 113 mg/dl (Celena Armendariz PA-C) Diagnostic Results Reviewed the following studies and agree with interpretation as follows: Patient Name: HEATHER SMITH Unit Number: [id number] Dictated: 01/29/17911 Transcribed: 01/29/17911 AUDELIA Printed Date/Time: [~ rep prt dt]/[~ rep prt tm] [~ rep ct labl] - [~ rep ct ivnm] [facility] [place]iology [place] [address] Dictated: 01/29/17911 Transcribed: 01/29/17911 JA Printed Date/Time: [~ rep prt dt]/[~ rep prt tm] [~ rep ct labl] - [~ rep ct ivnm] Patient: HEATHER SMITH Address1: [address] Rec: [id number] Address2: Acct ID: [id number] [facility] Zip: [place] [address] Date: 1935 Sex: M Room/Bed: [facility] Ref Phy: Nini Quick PA-C SC: [id number] Att Phy: Tanya Escalona MD Report #: [id number] Jeny Phy: Nini Quick PA-C Test: HBH Admit Phy: Anant Zhang M.D. Draughtsman: JERED Interpreting Phy: Lawrence Sotelo MD Diagnosis: ELEVATED TRIPONIN RLL PNEUMONIA Ordering Phy: Tanya Escalona MD Service Date: 01/29/17 Admit Date: 01/27/1703/12/17 MNE: [id number] CONF: DICTATED BY: Lawrence Sotelo MD]] CC: Nini Quick PA-C, Natalie B., MD Endcc: [~ rep ct add3]] NUCLEAR MEDICINE HEPATOBILIARY SCAN CLINICAL HISTORY: Gallstones. Elevated liver function tests. COMPARISON: Hepatobiliary scan October 10, 2015 and right upper cartilage ultrasound January 27, 2017. TECHNIQUE: 5.3 mCi of technetium 99m Choletec IV was injected at 8:00 AM on January 29, 2017. Immediately following injection, imaging of the abdomen was carried out for 60 minutes in the anterior projection. FINDINGS: Hepatic uptake of radiotracer is prompt and homogeneous. Activity is first identified within the gallbladder and common bile duct at 10 minutes. Small bowel activity is first noted at 20 minutes. IMPRESSION: Normal hepatobiliary scan. No evidence of acute cholecystitis. Electronically signed by: Lawrence Sotelo M.D. 01/29/2017 9:14 AM Dictated Date/Time: 01/29/2017 9:12 AM The status of this report is Signed. Draft = Not yet reviewed or approved by Radiologist. Signed = Reviewed and approved by Radiologist. <AttendingPhy>Tanya Escalona MD</AttendingPhy> <FamilyPhy>Nini Quick PA-C</FamilyPhy> <PrimaryPhy>Nini Quick PA-C</PrimaryPhy> < UnitNumber>[id number]</UnitNumber> <VisitNumber>[id number]</VisitNumber> < PatientName>HEATHER SMITH</PatientName> <DateOfBirth>1935</DateOfBirth> <Location>C.MS2W</Location> <ServiceDate>01/27/17</ServiceDate> <MNE>ESINDI</MNE > <OrderingPhy>Tanya Escalona MD</OrderingPhy> <OrderingPhyMNE>f rep ord dr srivastava</OrderingPhyMNE> <DictatingPhyMNE>f rep dict dr srivastava</DictatingPhyMNE> < CCListMNE>f rep ct mne</CCListMNE> <AdmittingPhyMNE>f pt admit dr srivastava</ AdmittingPhyMNE> <AttendingPhyMNE>f pt attend dr srivastava</AttendingPhyMNE> <ConsultingPhyMNE>f pt consult dr srivastava</ConsultingPhyMNE> <FamilyPhyMNE>f pt fam dr srivastava</FamilyPhyMNE> <OtherPhyMNE>f pt other dr srivastava</OtherPhyMNE> < PrimaryPhyMNE>f pt prim care dr srivastava</PrimaryPhyMNE> <ReferringPhyMNE>f pt referring dr srivastava</ReferringPhyMNE> (Celena Armendariz ., [facility]) Assessment and Plan 81 y/o male history of ischemic cardiomyopathy with an EF of 21%, CAD with h/o IA, s/p AICD placement (2016), h/o CVA with hemorrhagic conversion, aphasia, diabetes mellitus, hypertension, PFO, and CKD stage III who presented to the ED with SOB. CXR shows pleural effusions and bibasilar consolidations. Initial labs significant for elevated LFTs and elevated creatinine above baseline. Presumed community acquired pneumonia -Admit to telemetry -Continue Rocephin 1 gm IV qd. Day #3 of abx -D/C azithromycin due to prolonged QT -Continue doxycycline 100 mg IV q12h -Influenza negative Elevated LFTs--? secondary to illness vs statin vs biliary obstruction -Total bilirubin improved on 01/28 to 1.6 from 1.9. Very minimal improvement on 01/29 -AST, ALT, alk phos coming down 01/29 -Continue to trend LFTs -Hold atorvastatin -Liver U/S: hepatic steatosis, cholelithiasis, right pleural effusion, small abdominal ascites -[place] negative -HIDA normal Ischemic cardiomyopathy, chronic systolic CHF with LVEF 21 % -TRAE mildly improved -[place] [address] -Continue home Lasix 40 mg PO qd -Continue to monitor Elevated troponin--no chest pain. Likely secondary to renal fxn. Appears chronic. Elevated to 0.6-0.8 in February 2016 -Monitor in tele. No acute events overnight on telemetry. Patient was paced with PVCs -Repeat troponin this morning trending down at 0.232 Acute on Chronic Kidney disease stage III-baseline cr 1.6 -Creatinine on 01/29 1.8 -Continue to monitor CAD w/hx IA -Continue metoprolol ER 100 mg PO qd, ASA 81 mg PO qd, Plavix 75 mg PO qd DM--pt noncompliant with Lantus at home -Prescribed Lantus 8 units SC qam and 13 units SC qpm -->has not been taking. Will continue to hold -Insulin sliding scale -Check BSGs q ac and qhs DVT prophylaxis -Heparin 5000 units SC q12h -TEDS, SCDs Code Status -Level V, DO NOT RESUSCITATE (Celena Armendariz PA-C) Reviewed: Pt Seen/Exam by Me (Tanya Escalona MD) History Physician Dobby Loom Fixer Supervision Note: I interviewed and examined the patient. Discussed with [place] Armendariz and agree with findings and plan as documented in the note. Any exceptions or clarifications are listed here: Pt denies SOB or pain in chest or abd. Had negative HIDA scan this AM and LFTs trending downward Vitals and tele reviewed NAD, sitting in bed, pleasant, able to answer yes/no questions and keeps pointing to his cup he's dirnking and saying "Nicholas-A-simon" which I found out from the RN is his Miralax we ordered as he has not had a BM in 3 days. RRR no mgr nl S1S2 +Crackles in right base, otherwise CTAB, breathing unlabored Abd +BS, soft NT ND Ext no edema or calf tenderness 81 yo male with bilateral PNA, Right pleural effusion, elevated LFTs without abd pain by history or exam, however aphasia limits history. -continue po lasix as BNP >35k and h/o severe CHF -follow renal function -follow LFTs but are improving-could be from hepatic congestion or perhaps viral etiology -follow CXR in the AM and to resolution in 3-4 weeks as an outpatient -continue Rocephin and Doxy and can likely dc to home tomorrow with his 24/ care with po Levaquin to finish out 7 day course Documented By: Tanya Escalona (Tanya Escalona MD)
[2017-01-29] MEDS: CEFTRIAXONE SOD INJ 1 GM in DEXTROSE 5% ADD-VANTAGE 50ML 50 ML IV SCH (14:13)
[2017-01-29] MEDS ORDERED: POLYETHYLENE (MIRALAX) 17 GM PACK PO ONE (15:00)
[2017-01-29 15:30] VITALS: BP 115/73; PULSE 64; TEMP 36.5; O2SAT 94
[2017-01-30] VITALS: BP 101/75; PULSE 65; TEMP 36.5; O2SAT 94
[2017-01-30] MEDS: DOXYCYCLINE HYCLATE 100 MG in DEXTROSE 5% 100ML IV SCH (00:19)
[2017-01-30 06:59] LABS: MEAN PLATELET VOLUME 11.6 fL (7.4-10.4); PLATELET COUNT 131 K/uL (130-400); RED BLOOD COUNT 4.74 M/uL (4.7-6.1); WHITE BLOOD COUNT 9.13 K/uL (4.8-10.8)
[2017-01-30 07:37] LABS: BUN/CREATININE RATIO 37.8 (10-20); CALCIUM 9.2 mg/dl (8.5-10.1); CREATININE 2.1 mg/dl (0.60-1.40); POTASSIUM 4.7 mmol/L (3.5-5.1)
[2017-01-30 08:04] VITALS: BP 102/78; PULSE 60; TEMP 36.3; O2SAT 100
[2017-01-30 08:12] VITALS: O2SAT 100
--- NOTE | 2017-01-30 08:25 | DIAGNOSTIC IMAGING REPORT ---
CHEST 2 VIEWS ROUTINE CLINICAL HISTORY: follow up Pneumonia pneumonia COMPARISON STUDY: 01/27/2017 FINDINGS: Developing and or solid progressive right basilar infiltrate. Small bilateral pleural effusions. These are stable. Pulmonary vascular congestion minimally increased in prominence of the prior study. IMPRESSION: Findings of congestive failure slightly progressive. 2. Potential superimposed right basilar infiltrate. 3. Small bilateral stable pleural effusions Electronically signed by: Deion Santos M.D. 01/30/2017 8:23 AM Dictated Date/Time: 01/30/2017 8:22 AM
[2017-01-30] MEDS: ASPIRIN 81 MG ECTAB PO SCH (08:48)
[2017-01-30] MEDS: POLYETHYLENE (MIRALAX) 17 GM PACK PO SCH (08:52)
[2017-01-30] MEDS: CLOPIDOGREL BISULFATE 75 MG TAB PO SCH (08:53)
[2017-01-30] MEDS: METOPROLOL SUCC 50MG EXT REL TAB PO SCH (08:55)
[2017-01-30] MEDS: HEPARIN SOD 5000 UNIT/0.5 ML CARP SQ SCH ×2 (08:58→20:55)
[2017-01-30] MEDS: INSULIN ASPART 100 UNITS/ML 3 ML PEN SC SCH ×4 (09:19→20:47)
--- NOTE | 2017-01-30 09:59 | Gastrointestinal Consultation ---
Gastrointestinal Consultation Date of Consultation: Jan 30, 2017 Attending Physician: Dr. Escalona Consulting Physician: Dr. Palacios/ALEXYS Christine Reason for Consultation: Elevated LFTs History of Present Illness Patient is a 81 year old male with a history of ischemic cardiomyopathy as well as CKD, stage III and CAD admitted with progressive shortness of breath and suspected pneumonia vs pneumonitis. The patient is unable to provide any significant history and the majority of the history is obtained from the H&P. The patient denies any abdominal pain at present. Upon arrival, he was noted to have an elevated liver panel with an indirect bilirubin elevation as well as transaminitis. Laboratory testing was as follows: total bilirubin 1.9, direct bilirubin 0.9, AST 97, ALT 363, and ALP 136. His troponin was elevated at 0.214. Repeat liver panel today demonstrated worsening transaminitis and slightly increased bilirubin as follows: total bilirubin 2.3, direct bilirubin 1.1, AST 448, ALT 581, and ALP 260. Liver ultrasound demonstrated heterogenous appearing liver, cholelithiasis and gall bladder wall thickening with trace perihepatic ascites. HIDA scan was performed and negative for acute cholecystitis. The patient is afebrile and is without leukocytosis. He is not having any reported vomiting. Hepatitis serologies have been ordered and are negative. Monoscreen and influenza testing were negative. He has had a slightly increased troponin. Past Medical/Surgical History Medical Problems: (1) Acute kidney injury Status: Acute (2) Elevated liver function tests Status: Acute (3) Elevated troponin Status: Acute (4) Febrile Status: Acute (5) Hyperglycemia Status: Acute (6) Hypokalemia Status: Acute (7) Near syncope Status: Acute (8) Weakness Status: Acute Past Medical History: 1. CAD 2. Ischemic cardiomyopathy with EF of 21% 3. Aphasia 4. CVA 5. Diabetes 6. Hypertension 7. PFO 8. CKD, stage III Past Surgical History: 1. S/P AICD 2016 2. Bowel surgery Family History Depression FH: heart disease Hypertension Unable to obtain from patient Social History Smoking Status: Never Smoker Alcohol Use: none Drug Use: none Marital Status: single Occupation Status: retired, disabled Allergies Coded Allergies: No Known Allergies (Verified , 03/11/16) Current Medications Home Meds and Scripts Medications Dose Route/Sig Max Daily Dose Days Date Category Dose Instructions Furosemide 40 Mg Tab 40 Mg PO QAM 01/27/17 Reported Lipitor (Atorvastatin Calcium) 80 Mg Tab 80 Mg PO QAM 01/27/17 Reported Lantus (Insulin Glargine) 100 Unit/Ml Inj 13 Unit SC QPM PRN 01/27/17 Reported LEGAL GUARDIAN SAID PT REFUSES IT MOST OF THE TIME, SO THEY DON'T GIVE IT EVERY TIME Lantus (Insulin Glargine) 100 Unit/Ml Inj 8 Units SC QAM PRN 01/27/17 Reported LEGAL GUARDIAN SAID PT REFUSES IT MOST OF THE TIME, SO THEY DON'T GIVE IT EVERY TIME Toprol-Xl (Metoprolol Succinate) 100 Mg Tabcr 100 Mg PO DAILY 03/11/16 Reported Feosol (Ferrous Sulfate) 65 Mg Tab 1 Tab PO BIDM 10/04/15 Reported Aspirin Ec (Aspirin) 81 Mg Tab 81 Mg PO QAM 10/04/15 Reported Plavix (Clopidogrel Bisulfate) 75 Mg Tab 75 Mg PO QAM 07/12/11 Reported Review of Systems unable to obtain due to aphasia Physical Exam Date Time Temp Pulse Resp B/P Pulse Ox O2 Delivery O2 Flow Rate FiO2 01/30/17 08:12 100 Nasal Cannula 3.0 01/30/17 08:04 36.3 60 20 102/78 100 Nasal Cannula 3.0 01/30/17 00:00 Room Air 01/30/17 00:00 36.5 65 20 101/75 94 2.0 01/29/17 16:00 Room Air 01/29/17 15:30 36.5 64 18 115/73 94 Room Air General Appearance: no apparent distress Eyes: EOMI ENT: hearing grossly normal Respiratory/Chest: lungs clear, normal breath sounds, no respiratory distress Cardiovascular: regular rate, rhythm, no gallop, no murmur Abdomen: normal bowel sounds, non tender, soft Extremities: no pedal edema Neurologic/Psych: alert, normal mood/affect Laboratory Results Last 24 Hours Test 01/29/17 11:28 01/29/17 16:25 01/29/17 20:39 01/30/17 06:50 Bedside Glucose 113 mg/dl 134 mg/dl 101 mg/dl White Blood Count 9.13 K/uL Red Blood Count 4.74 M/uL Hemoglobin 16.1 g/dL Hematocrit 46.0 % Mean Corpuscular Volume 97.0 fL Mean Corpuscular Hemoglobin 34.0 pg Mean Corpuscular Hemoglobin Concent 35.0 g/dl RDW Standard Deviation 51.8 fL RDW Coefficient of Variation 14.8 % Platelet Count 131 K/uL Mean Platelet Volume 11.6 fL Sodium Level 140 mmol/L Potassium Level 4.7 mmol/L Chloride Level 102 mmol/L Carbon Dioxide Level 23 mmol/L Anion Gap 15.0 mmol/L Blood Urea Nitrogen 79 mg/dl Creatinine 2.10 mg/dl Est Creatinine Clear Calc Drug Dose 26.3 ml/min Estimated GFR () 33.7 Estimated GFR (Non- 29.1 BUN/Creatinine Ratio 37.8 Random Glucose 129 mg/dl Calcium Level 9.2 mg/dl Total Bilirubin 2.3 mg/dl Direct Bilirubin 1.1 mg/dl Aspartate Amino Transf (AST/SGOT) 448 U/L Alanine Aminotransferase (ALT/SGPT) 581 U/L Alkaline Phosphatase 260 U/L Total Protein 6.7 gm/dl Albumin 3.4 gm/dl Test 01/30/17 07:30 01/30/17 08:50 Bedside Glucose 122 mg/dl Impression Patient is a 81 year old male with a history of ischemic cardiomyopathy admitted with shortness of breath and pneumonia with incidental finding of elevated hepatic transaminases as well as heterogenous appearing liver with trace ascites. 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 Rocephin has been identified as a potential medication to cause cholestatic liver injury. Plan 1. Await pending hepatitis serologies. 2. Continue to trend transaminases. 3. Recommend shortest course of antibiotic therapy or consideration of alternative therapy. 4. Avoid other potential hepatotoxins and alcohol. 5. Supportive measures per primary team. Agree with ALEXYS Christine as above Abd: Soft, NT, ND, +BS Continue supportive care CMP in AM
[2017-01-30] MEDS ORDERED: LEVOFLOXACIN / D5W 500 MG in PREMIXED IN D5W 100 ML IV SCH (11:15)
--- NOTE | 2017-01-30 11:44 | Hospitalist Progress Note ---
Hospitalist Progress Note Date of Service Jan 30, 2017. (Celena Armendariz ., [facility]) Subjective Pt evaluation today including: conversation w/ patient, physical exam, chart review, lab review, review of studies, review of inpatient medication list PO Intake: Poor PO intake Voiding: voiding difficulty (not voiding per nursing) Difficult to obtain ROS from patient due to expressive aphasia. From what I can gather, the patient has been having some pain in his bladder and per nursing , he has not been urinating. This morning after eating breakfast, he immediately vomited. I believe he complains of shortness of breath today, although obtaining history is very difficult and he appears to be resting comfortably. The patient denies fevers, chills, sweats, chest pain, palpitations, claudication, cough, wheezing, shortness of breath, nausea, dysuria, hematuria, paralysis, weakness, numbness and tingling. Additional Comments: See HPI for pertinent positives and negatives. All other systems reviewed and negative. (Celena Armendariz ., KARSTEN-C) Objective Vital Signs Date Time Temp Pulse Resp B/P Pulse Ox O2 Delivery O2 Flow Rate FiO2 01/30/17 08:12 100 Nasal Cannula 3.0 01/30/17 08:04 36.3 60 20 102/78 100 Nasal Cannula 3.0 01/30/17 08:00 Room Air 2.0 01/30/17 00:00 Room Air 01/30/17 00:00 36.5 65 20 101/75 94 2.0 01/29/17 16:00 Room Air 01/29/17 15:30 36.5 64 18 115/73 94 Room Air (Celena Armendariz, KARSTEN-C) Physical Exam General Appearance: WD/WN, no apparent distress Eyes: normal inspection, PERRL, sclerae normal ENT: normal ENT inspection, hearing grossly normal, pharynx normal Neck: supple, no JVD, trachea midline Respiratory/Chest: lungs clear, normal breath sounds, no respiratory distress, + decreased breath sounds Cardiovascular: regular rate, rhythm, no gallop, no murmur Abdomen: normal bowel sounds, non tender, soft Extremities: non-tender, normal inspection, no pedal edema, + swelling (1+ pitting edema bilaterally) Neurologic/Psychiatric: alert, normal mood/affect, + pertinent finding (unable to assess orientation) Skin: normal color, warm/dry, no rash (Celena Armendariz .DINAH) Laboratory Results Last 24 Hours Test 01/29/17 11:28 01/29/17 16:25 01/29/17 20:39 01/30/17 06:50 Bedside Glucose 113 mg/dl 134 mg/dl 101 mg/dl White Blood Count 9.13 K/uL Red Blood Count 4.74 M/uL Hemoglobin 16.1 g/dL Hematocrit 46.0 % Mean Corpuscular Volume 97.0 fL Mean Corpuscular Hemoglobin 34.0 pg Mean Corpuscular Hemoglobin Concent 35.0 g/dl RDW Standard Deviation 51.8 fL RDW Coefficient of Variation 14.8 % Platelet Count 131 K/uL Mean Platelet Volume 11.6 fL Sodium Level 140 mmol/L Potassium Level 4.7 mmol/L Chloride Level 102 mmol/L Carbon Dioxide Level 23 mmol/L Anion Gap 15.0 mmol/L Blood Urea Nitrogen 79 mg/dl Creatinine 2.10 mg/dl Est Creatinine Clear Calc Drug Dose 26.3 ml/min Estimated GFR () 33.7 Estimated GFR (Non- 29.1 BUN/Creatinine Ratio 37.8 Random Glucose 129 mg/dl Calcium Level 9.2 mg/dl Total Bilirubin 2.3 mg/dl Direct Bilirubin 1.1 mg/dl Aspartate Amino Transf (AST/SGOT) 448 U/L Alanine Aminotransferase (ALT/SGPT) 581 U/L Alkaline Phosphatase 260 U/L Total Protein 6.7 gm/dl Albumin 3.4 gm/dl Test 01/30/17 07:30 01/30/17 08:50 Bedside Glucose 122 mg/dl Hepatitis B Surface Antigen NEG Hepatitis C Antibody NEG (Celena Armendariz ., DINAH) Diagnostic Results Reviewed the following studies and agree with interpretation as follows: Patient Name: HEATHER SMITH Unit Number: [id number] Dictated: 01/30/17821 Transcribed: 01/30/17821 MS Printed Date/Time: [~ rep prt dt]/[~ rep prt tm] [~ rep ct labl] - [~ rep ct ivnm] [facility] [place] [address] Dictated: 01/30/17821 Transcribed: 03/15/17 0822 MS Printed Date/Time: [~ rep prt dt]/[~ rep prt tm] [~ rep ct labl] - [~ rep ct ivnm] Patient: HEATHER SMITH Address1: [address] Rec: [id number] Address2: Acct ID: [id number] [facility] Zip: [place] [id number] Date: 1935 Sex: M Room/Bed: [facility] Ref Phy: Nini Quick PA-C SC: [id number] Att Phy: Tanya Escalona MD Report #: [id number] Jeny Phy: Nini Quick PA-C Test: CXR Admit Phy: Anant Zhang M.D. Registered Dental Assistant Rda: ALLEN Interpreting Phy: Deion Santos M.D. Diagnosis: ELEVATED TRIPONIN RLL PNEUMONIA Ordering Phy: Tanya Escalona MD Service Date: 01/30/17 Admit Date: 01/27/1703/12/17 MNE: [id number] CONF: DICTATED BY: Deion Santos M.D.]] CC: Nini Quick PA-C, Natalie B., MD Endcc: [~ rep ct add3]] CHEST 2 VIEWS ROUTINE CLINICAL HISTORY: follow up Pneumonia pneumonia COMPARISON STUDY: 01/27/2017 FINDINGS: Developing and or solid progressive right basilar infiltrate. Small bilateral pleural effusions. These are stable. Pulmonary vascular congestion minimally increased in prominence of the prior study. IMPRESSION: Findings of congestive failure slightly progressive. 2. Potential superimposed right basilar infiltrate. 3. Small bilateral stable pleural effusions Electronically signed by: Deion Santos M.D. 01/30/2017 8:23 AM Dictated Date/Time: 01/30/2017 8:22 AM The status of this report is Signed. Draft = Not yet reviewed or approved by Radiologist. Signed = Reviewed and approved by Radiologist. <AttendingPhy>Tanya Escalona MD</AttendingPhy> <FamilyPhy>Nini Quick PA-C</FamilyPhy> <PrimaryPhy>Nini Quick PA-C</PrimaryPhy> < UnitNumber>[id number]</UnitNumber> <VisitNumber>[id number]</VisitNumber> < PatientName>HEATHER SMITH</PatientName> <DateOfBirth>1935</DateOfBirth> <Location>RajMS2W</Location> <ServiceDate>01/27/17</ServiceDate> <MNE>ESINDI</MNE > <OrderingPhy>Tanya Escalona MD</OrderingPhy> <OrderingPhyMNE>f rep ord dr srivastava</OrderingPhyMNE> <DictatingPhyMNE>f rep dict dr srivastava</DictatingPhyMNE> < CCListMNE>f rep ct mne</CCListMNE> <AdmittingPhyMNE>f pt admit dr srivastava</ AdmittingPhyMNE> <AttendingPhyMNE>f pt attend dr srivastava</AttendingPhyMNE> <ConsultingPhyMNE>f pt consult dr srivastava</ConsultingPhyMNE> <FamilyPhyMNE>f pt fam dr srivastava</FamilyPhyMNE> <OtherPhyMNE>f pt other dr srivastava</OtherPhyMNE> < PrimaryPhyMNE>f pt prim care dr srivastava</PrimaryPhyMNE> <ReferringPhyMNE>f pt referring dr srivastava</ReferringPhyMNE> (Celena Armendariz ., PAKwabenaC) Assessment and Plan 81 y/o male history of ischemic cardiomyopathy with an EF of 21%, CAD with h/o [place], s/p AICD placement (2015), h/o CVA with hemorrhagic conversion, aphasia, diabetes mellitus, hypertension, PFO, and CKD stage III who presented to the ED with SOB. CXR shows pleural effusions and bibasilar consolidations. Initial labs significant for elevated LFTs and elevated creatinine above baseline. Community acquired pneumonia -Admit to telemetry -D/C Rocephin as it may be contributing to elevated LFTs per GI. Will D/C doxy as well. -Start Levaquin 500 mg IV qd for total 7 days abx. Day #4 of 7. -D/C azithromycin due to prolonged QT -Influenza negative -Repeat CXR on 3/15 shows progressive CHF with superimposed right basilar infiltrate and stable bilateral pleural effusions Elevated LFTs--? secondary to illness vs statin vs biliary obstruction. Pt vomited this morning immediately after breakfast -Significant increase in LFTs on 01/30 compared to 01/29 -Hepatitis panel pending -KUB ordered -Continue to trend LFTs -Hold atorvastatin -Liver U/S: hepatic steatosis, cholelithiasis, right pleural effusion, small abdominal ascites -Park negative -HIDA normal Ischemic cardiomyopathy, chronic systolic CHF with LVEF 21 % [place] [id number] -Hold Lasix due to elevated creatinine -Continue to monitor Elevated troponin--no chest pain. Likely secondary to renal fxn. Appears chronic. Elevated to 0.6-0.8 in February 2016 -Monitor in tele. No acute events overnight on telemetry. Patient was paced with PVCs -Repeat troponin 01/29 trending down at 0.232 Acute on Chronic Kidney disease stage III-baseline cr 1.6 -Creatinine on 01/30 2.1 -Nephrology consulted, appreciate recs as pt needs diuresis yet has worsening TRAE -Continue to monitor Possible urinary retention -Bladder scans when necessary -Straight cath if more than 300 mL CAD w/hx [place] -Continue metoprolol ER 100 mg PO qd, ASA 81 mg PO qd, Plavix 75 mg PO qd DM--pt noncompliant with Lantus at home -Prescribed Lantus 8 units SC qam and 13 units SC qpm -->has not been taking. Will continue to hold -Insulin sliding scale -Check BSGs q ac and qhs DVT prophylaxis -Heparin 5000 units SC q12h -TEDS, SCDs Code Status -Level V, DO NOT RESUSCITATE (Celena Armendariz PA-C) Reviewed: Pt Seen/Exam by Me (Tanya Escalona MD) History Physician Electrolysis Engineer Supervision Note: I interviewed and examined the patient. Discussed with KARSTEN Armendariz and agree with findings and plan as documented in the note. Any exceptions or clarifications are listed here: Met with pt and circus hand at the bedside and discussed his case at length. Worsening renal function, LFs much worse today. Bridge Manager requesting to talk to Dr. Rivas/his Engineering Instructor. Seen by Nephrology. Bridge Manager will try to explain dialysis to pt with handouts as he communicates best with reading in case he ends of needing it. She does not think he would tolerate it at all if it came to that but she understands the alternatives. Bladder scanned this AM for 400+ ml urine and straight cathed. No more urine since then. Seen by GI today as well. 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 LFTs likely up due to antibiotics combined with hepatic congestion from CHF. Flu neg, Park neg, Hep B and C neg, Hep A pending, HIDA normal, Cholelithiasis on US but not symptomatic APpreciate Nephrology recommendations-may need dobutamine gtt and restart lasix , broached topic of HD with pt and circus hand Appreciate GI recommendations -holding lasix for now -follow PRP -stop doxy and Rocephin as either could be causing hepatitis -switch to Levaquin and finish out 7 day course -consult Cardiology for tomorrow given cardiorenal syndrome -follow LFTs -follow CXR to resolution of PNA in 3-4 weeks as an outpatient Documented By: Tanya Escalona (Tanya Escalona MD)
[2017-01-30 11:55] VITALS: BP 108/79; PULSE 60; O2SAT 100
[2017-01-30] MEDS: ACETAMINOPHEN 325 MG TAB PO PRN ×2 (12:34→23:03)
[2017-01-30] MEDS ORDERED: LEVOFLOXACIN CONSULT ACTIVE PRN (12:45)
--- NOTE | 2017-01-30 13:41 | DIAGNOSTIC IMAGING REPORT ---
KUB HISTORY: elevated LFTs, vomiting COMPARISON: Chest and abdominal series 07/12/2011. FINDINGS: Multiple nondilated gas-filled loops of large and small bowel seen throughout the abdomen. There is a small amount of well-formed stool seen throughout the colon. The heart is enlarged. Small bilateral pleural effusions. There is a left-sided pacemaker/defibrillator present. No renal calculi. No ureteral calculi. No pneumoperitoneum or pneumatosis. IMPRESSION: No evidence for bowel obstruction. Small bilateral pleural effusions and cardiomegaly persist. Electronically signed by: Adithya Kauffman M.D. 01/30/2017 1:40 PM Dictated Date/Time: 01/30/2017 1:38 PM
[2017-01-30] MEDS ORDERED: LEVOFLOXACIN 750MG / D5W IV SCH (14:00)
--- NOTE | 2017-01-30 14:19 | Nephrology Consultation ---
Nephrology Consultation Date & Providers Date of Consultation: Jan 30, 2017. Primary Care Provider: Nini Quick PA-C Referring Provider: Reason for Consultation Evaluation management for acute kidney injury with history of chronic kidney disease. History of Present Illness Topher is a 81-year-old gentlemen with past medical history significant for chronic kidney disease, hypertension, diabetes, ischemic cardiomyopathy and chronic systolic CHF admitted to the hospital with worsening shortness of breath and diagnosed with pneumonia. Nephrologic consult was requested as he developed progressive acute kidney injury. Electronic medical records including labs and imaging are reviewed in detail during patient's visit. Topher was admitted to the hospital 3 days ago with worsening shortness of breath and diagnosed with pneumonia and empirically started on Rocephin. No h/ o fever, chills, cough. Currently his shortness of breath slightly improving, he remained afebrile. Has history of chronic kidney disease, baseline creatinine has been variable of from 1.4-1.6, possibly secondary to type 2 cardiorenal syndrome with history of severe cardiomyopathy, ejection fraction around 20 percent. On admission creatinine was 1.9 which slowly worsened over last few days to 2.1 this morning. BUN creatinine ratio significantly elevated suggestive of intravascular volume depletion. Other electrolyte including potassium and bicarbonate seems normal. Urinalysis was positive for trace proteinuria but no hematuria pyuria. No prior renal ultrasound available however liver ultrasound during this hospital course showed no right-sided postrenal obstruction but had mild cortical thinning. he has been on Rocephin which was discontinued yesterday due to concern over transaminitis and started on Levaquin. He was not on any nephrotoxins medications. He has prior h/o [place], sever ischemic cardiomyopathy and CHF with systolic dysfunction, last EF 20%, s/p AICD in 2016. Although EMR record showed he was supposed to on Lasix 40 milligram daily and another 40 milligram as needed for increased weight gain but his caregiver mentioned he was only taking 20 mg and recently it was increased to 40. There was report that his diuretics was recently increased and his urine output was decreased recently. Urine output was not measured during hospital stay. Was on lisinopril 5 mg daily. Diuretics was discontinued this morning as renal function worsen. Allergies Coded Allergies: No Known Allergies (Verified , 03/11/16) Inpatient Medications Current Inpatient Medications Medications (Trade) Dose Ordered Sig/Em Route Start Time Stop Time Status Last Admin Dose Admin Aspirin (Ecotrin Tab) 81 mg QAM PO 01/28/17 09:00 02/27/17 08:59 01/30/17 08:48 81 MG Clopidogrel Bisulfate (plAVix TAB) 75 mg QAM PO 01/28/17 09:00 02/27/17 08:59 01/30/17 08:53 75 MG Metoprolol Succinate (Toprol Xl Tab) 100 mg DAILY PO 01/28/17 09:00 02/27/17 08:59 01/30/17 08:55 100 MG Acetaminophen (Tylenol Tab) 650 mg Q4H PRN PO 01/27/17 12:30 02/26/17 12:29 Al Hydrox/Mg Hydrox/Simethicone (Maalox Max Susp) 15 ml Q4H PRN PO 01/27/17 12:30 02/26/17 12:29 Ondansetron HCl (Zofran Inj) 4 mg Q6H PRN IV 01/27/17 12:30 02/26/17 12:29 Heparin Sodium (Porcine) (Heparin Sq 5000 Unit/0.5ml) 5,000 unit Q12H SQ 01/27/17 21:00 02/26/17 20:59 01/30/17 08:58 5,000 UNIT Insulin Aspart (novoLOG ASPART) SLIDING SCALE PARAMETER ACHS SC 01/27/17 16:00 02/26/17 15:59 01/28/17 17:06 2 UNITS Glucose (Glucose 40% Gel) 15-30 GRAMS 15 GRAMS... UD PRN PO 01/27/17 14:15 02/26/17 14:14 Glucose (Glucose Chew Tab) 4-8 Tablets 4 Tabl... UD PRN PO 01/27/17 14:15 02/26/17 14:14 Dextrose (Dextrose 50% 50ML Syringe) 25-50ML OF 50% DW IV FOR... UD PRN IV 01/27/17 14:15 02/26/17 14:14 Glucagon (Glucagon Inj) 1 mg UD PRN SQ 01/27/17 14:15 02/26/17 14:14 Furosemide (Lasix Tab) 40 mg QAM PO 01/29/17 09:00 02/28/17 08:59 Future Hold 01/29/17 10:45 40 MG Polyethylene 17 gm 17 gm DAILY PO 01/30/17 09:00 03/01/17 08:59 01/30/17 08:52 17 GM Levofloxacin/Prmx (Levaquin / D5W/ Premixed D5W) 100 ml @ 100 mls/hr Q24H IV 01/30/17 11:15 02/03/17 11:14 UNV Family History Depression FH: heart disease Hypertension Social History Smoking Status: Never Smoker Alcohol Use: none Drug Use: none Marital Status: single Housing Status: other (lives with his guardian, Jackeline) Occupation: retired, disabled Review of Systems A complete review of systems was performed. Pertinent positives are noted above. All other systems are negative. Physical Exam Date Time Temp Pulse Resp B/P Pulse Ox O2 Delivery O2 Flow Rate FiO2 01/30/17 08:12 100 Nasal Cannula 3.0 01/30/17 08:04 36.3 60 20 102/78 100 Nasal Cannula 3.0 01/30/17 08:00 Room Air 2.0 01/30/17 00:00 Room Air 01/30/17 00:00 36.5 65 20 101/75 94 2.0 01/29/17 16:00 Room Air 01/29/17 15:30 36.5 64 18 115/73 94 Room Air GENERAL: elderly male, AAA x 3, ill-appearing, not in any distress. limited communications HEENT: Atraumatic, normocephalic. NECK: Supple, positive JVD, no carotid bruit appreciated. ENT: No sinus tenderness MOUTH and THROAT: Moist oral mucosa, no oral ulcer or pharyngeal erythema RESPIRATORY: Normal breathing efforts, no accessory muscle use, clear to auscultation with mild decrease in BS at bases, no rales. CARDIOVASCULAR: S1, S2 normal, rate rhythm regular. ABDOMEN: Soft, nontender, positive bowel sound. MUSCULOSKELETAL: No CVA tenderness. No joint swelling, erythema or tenderness. Normal range of motion. SKIN: No skin rash EXTREMITY: 1+ lower extremity edema NEURO: No gross focal neurological deficit, moves all extremities Laboratory Results Last 24 Hours Test 01/29/17 16:25 01/29/17 20:39 01/30/17 06:50 01/30/17 07:30 Bedside Glucose 134 mg/dl 101 mg/dl 122 mg/dl White Blood Count 9.13 K/uL Red Blood Count 4.74 M/uL Hemoglobin 16.1 g/dL Hematocrit 46.0 % Mean Corpuscular Volume 97.0 fL Mean Corpuscular Hemoglobin 34.0 pg Mean Corpuscular Hemoglobin Concent 35.0 g/dl RDW Standard Deviation 51.8 fL RDW Coefficient of Variation 14.8 % Platelet Count 131 K/uL Mean Platelet Volume 11.6 fL Sodium Level 140 mmol/L Potassium Level 4.7 mmol/L Chloride Level 102 mmol/L Carbon Dioxide Level 23 mmol/L Anion Gap 15.0 mmol/L Blood Urea Nitrogen 79 mg/dl Creatinine 2.10 mg/dl Est Creatinine Clear Calc Drug Dose 26.3 ml/min Estimated GFR () 33.7 Estimated GFR (Non- 29.1 BUN/Creatinine Ratio 37.8 Random Glucose 129 mg/dl Calcium Level 9.2 mg/dl Total Bilirubin 2.3 mg/dl Direct Bilirubin 1.1 mg/dl Aspartate Amino Transf (AST/SGOT) 448 U/L Alanine Aminotransferase (ALT/SGPT) 581 U/L Alkaline Phosphatase 260 U/L Total Protein 6.7 gm/dl Albumin 3.4 gm/dl Test 01/30/17 08:50 01/30/17 11:24 Hepatitis B Surface Antigen NEG Hepatitis C Antibody NEG Bedside Glucose 125 mg/dl Impression (1) Acute kidney injury (2) CKD (chronic kidney disease) stage 3, GFR 30-59 ml/min (3) RLL pneumonia (4) Acute on chronic systolic heart failure Topher is a 81-year-old gentlemen with stage 3 chronic kidney disease, hypertension, ischemic cardiomyopathy admitted to the hospital with pneumonia. On admission his creatinine was above his baseline ( B/L cr 1.4-1.6) 1.9 which slowly worsened over last few days and creatinine was 2.1 this morning. Although he has been on multiple antibiotics since admission, urinalysis was otherwise negative for pyuria, acute interstitial nephritis seems unlikely. Acute kidney injury most likely hemodynamically mediated. BUN creatinine ratio above 30 suggestive of some component of intravascular volume depletion. Urinalysis positive for trace proteinuria but no hematuria, pyuria. Blood pressure has been acceptable. Has history of ischemic cardiomyopathy, ejection fraction 20 % at home he was on Lasix 40 p.o. daily which was continued during hospital course until this morning. At home he was on lisinopril 5 milligrams p.o. daily, previously could not tolerate higher dose, he has not been getting that since admission. No nephro toxic medication exposure. Although patient seems intravascularly volume depleted, with ejection fraction only 20%, he has pulmonary congestion on exam and from the radiology study. We may have to accept some degree of azotemia to achieve euvolemia considering underlying cardiac condition. Recommendations --hold diuretics today however it is highly likely that we will have to resume diuretics soon and may have to accept azotemia considering significantly low ejection fraction --may consider stopping all antibiotic as pt had no fever, leukocytosis and denies cough, congestion and CXR without any clear evidence of pulmonary infiltrate --if renal function continue to worsen pt may benefit from dobutamine drip --continue on low-salt, renal diet --wait on discharge until we see stabilization and /or improvement of renal function --explained to the patient and discussed with caregiver Jackeline over telephone that patient has risk factors for further worsening of renal function and need to monitor closely Thank you for allowing me to participate in your patient's care. It was a pleasure to see Topher This chart was completed utilizing [employer] Speech and voice recognition software. Grammatical errors, random word insertions, pronoun errors and incomplete sentences are occasional consequences of this system. Any questions or concerns about the content, text or information contained within the body of this dictation should be addressed directly to the physician for clarification.
[2017-01-30 15:34] VITALS: BP 89/63; PULSE 67; TEMP 36.5; O2SAT 100
[2017-01-30 16:02] VITALS: BP 106/76; PULSE 69
[2017-01-31] VITALS: BP 94/65; PULSE 65; TEMP 36.3; O2SAT 93
[2017-01-31] MEDS: INSULIN ASPART 100 UNITS/ML 3 ML PEN SC SCH ×4 (06:30→20:43)
[2017-01-31 07:27] VITALS: BP 115/86; PULSE 67; TEMP 36.4; O2SAT 94
[2017-01-31 07:42] LABS: CREATININE 2.1 mg/dl (0.60-1.40)
[2017-01-31 07:43] LABS: BUN/CREATININE RATIO 40.5 (10-20); POTASSIUM 4.7 mmol/L (3.5-5.1)
[2017-01-31 07:51] LABS: HEMATOCRIT 44.5 % (42-52); MEAN CORPUSCULAR HEMOGLOBIN 34.6 pg (25-34); MEAN CORPUSCULAR HGB CONC 35.3 g/dl (32-36); MEAN PLATELET VOLUME 12.8 fL (7.4-10.4); PLATELET COUNT 119 K/uL (130-400); RED BLOOD COUNT 4.54 M/uL (4.7-6.1); WHITE BLOOD COUNT 8.35 K/uL (4.8-10.8)
[2017-01-31 07:52] LABS: PLT ESTIMATE DECREASED
[2017-01-31] MEDS: CLOPIDOGREL BISULFATE 75 MG TAB PO SCH (08:31)
[2017-01-31] MEDS: ASPIRIN 81 MG ECTAB PO SCH (08:31)
[2017-01-31] MEDS: METOPROLOL SUCC 50MG EXT REL TAB PO SCH (08:31)
[2017-01-31] MEDS: POLYETHYLENE (MIRALAX) 17 GM PACK PO SCH (08:31)
[2017-01-31] MEDS: HEPARIN SOD 5000 UNIT/0.5 ML CARP SQ SCH ×2 (08:33→20:46)
--- NOTE | 2017-01-31 10:08 | Gastroenterology Progress Note ---
Progress Note Date of Service: Jan 31, 2017 Subjective Pt evaluation today including: conversation w/ patient, physical exam, chart review, lab review, conversation w/ interior design consultant, review of inpatient medication list Patient was evaluated at the bedside along with Dr. Rivas of cardiology. The patient denies any abdominal pain. Only complaint this morning is of persistent shortness of breath. Patient remains afebrile. No leukocytosis. Rocephin was discontinued yesterday and he is now on Levaquin. In doing so, he has been noted to have slightly decreased transaminases. Liver panel was as follows: total bilirubin 1.6, direct bilirubin 0.6, AST 275, ALT 530, and ALP 229. Review of Systems Constitutional: + see HPI Respiratory: + see HPI Cardiac: No chest pain Abdomen: + see HPI Medications Current Inpatient Medications Medications (Trade) Dose Ordered Sig/Em Route Start Time Stop Time Status Last Admin Dose Admin Aspirin (Ecotrin Tab) 81 mg QAM PO 01/28/17 09:00 02/27/17 08:59 01/31/17 08:31 81 MG Clopidogrel Bisulfate (plAVix TAB) 75 mg QAM PO 01/28/17 09:00 02/27/17 08:59 01/31/17 08:31 75 MG Metoprolol Succinate (Toprol Xl Tab) 100 mg DAILY PO 01/28/17 09:00 02/27/17 08:59 01/31/17 08:31 100 MG Acetaminophen (Tylenol Tab) 650 mg Q4H PRN PO 01/27/17 12:30 02/26/17 12:29 01/30/17 23:03 650 MG Al Hydrox/Mg Hydrox/Simethicone (Maalox Max Susp) 15 ml Q4H PRN PO 01/27/17 12:30 02/26/17 12:29 Ondansetron HCl (Zofran Inj) 4 mg Q6H PRN IV 01/27/17 12:30 02/26/17 12:29 Heparin Sodium (Porcine) (Heparin Sq 5000 Unit/0.5ml) 5,000 unit Q12H SQ 01/27/17 21:00 02/26/17 20:59 01/31/17 08:33 5,000 UNIT Insulin Aspart (novoLOG ASPART) SLIDING SCALE PARAMETER ACHS SC 01/27/17 16:00 02/26/17 15:59 01/28/17 17:06 2 UNITS Glucose (Glucose 40% Gel) 15-30 GRAMS 15 GRAMS... UD PRN PO 01/27/17 14:15 02/26/17 14:14 Glucose (Glucose Chew Tab) 4-8 Tablets 4 Tabl... UD PRN PO 01/27/17 14:15 02/26/17 14:14 Dextrose (Dextrose 50% 50ML Syringe) 25-50ML OF 50% DW IV FOR... UD PRN IV 01/27/17 14:15 02/26/17 14:14 Glucagon (Glucagon Inj) 1 mg UD PRN SQ 01/27/17 14:15 02/26/17 14:14 Furosemide (Lasix Tab) 40 mg QAM PO 01/29/17 09:00 02/28/17 08:59 Future Hold 01/29/17 10:45 40 MG Polyethylene (Miralax Powder Packet) 17 gm DAILY PO 01/30/17 09:00 03/01/17 08:59 01/31/17 08:31 17 GM Levofloxacin 1 ea 1 ea UD PRN N/A 01/30/17 12:45 03/01/17 12:44 Levofloxacin/Prmx (Levaquin / D5W/ Premixed D5W) 150 ml @ 100 mls/hr Q2D@1400 IV 01/30/17 14:00 02/06/17 13:59 01/30/17 14:10 100 MLS/HR Objective Vital Signs Date Time Temp Pulse Resp B/P Pulse Ox O2 Delivery O2 Flow Rate FiO2 01/31/17 08:00 Nasal Cannula 3.0 01/31/17 07:27 36.4 67 18 115/86 94 Room Air 01/31/17 00:00 36.3 65 18 94/65 93 2.0 01/30/17 23:45 Nasal Cannula 3.0 01/30/17 16:02 69 106/76 01/30/17 15:57 Nasal Cannula 3.0 01/30/17 15:34 36.5 67 19 89/63 100 Nasal Cannula 3.0 01/30/17 11:55 60 24 108/79 100 Nasal Cannula 3.0 Physical Exam General Appearance: no apparent distress Eyes: EOMI Respiratory/Chest: lungs clear, no respiratory distress, + decreased breath sounds (bases) Cardiovascular: regular rate, rhythm, no gallop, no murmur Abdomen: normal bowel sounds, non tender, soft Neurologic/Psych: alert, normal mood/affect, oriented x 3 Skin: warm/dry Laboratory Results Last 24 Hours Test 01/30/17 11:24 01/30/17 16:32 01/30/17 20:39 01/31/17 06:20 Bedside Glucose 125 mg/dl 142 mg/dl 148 mg/dl White Blood Count 8.35 K/uL Red Blood Count 4.54 M/uL Hemoglobin 15.7 g/dL Hematocrit 44.5 % Mean Corpuscular Volume 98.0 fL Mean Corpuscular Hemoglobin 34.6 pg Mean Corpuscular Hemoglobin Concent 35.3 g/dl RDW Standard Deviation 52.3 fL RDW Coefficient of Variation 14.9 % Platelet Count 119 K/uL Mean Platelet Volume 12.8 fL Platelet Estimate DECREASED Sodium Level 136 mmol/L Potassium Level 4.7 mmol/L Chloride Level 102 mmol/L Carbon Dioxide Level 22 mmol/L Anion Gap 12.0 mmol/L Blood Urea Nitrogen 85 mg/dl Creatinine 2.10 mg/dl Est Creatinine Clear Calc Drug Dose 26.3 ml/min Estimated GFR () 33.7 Estimated GFR (Non- 29.1 BUN/Creatinine Ratio 40.5 Random Glucose 110 mg/dl Calcium Level 9.0 mg/dl Total Bilirubin 1.6 mg/dl Direct Bilirubin 0.6 mg/dl Aspartate Amino Transf (AST/SGOT) 275 U/L Alanine Aminotransferase (ALT/SGPT) 530 U/L Alkaline Phosphatase 229 U/L Total Protein 6.2 gm/dl Albumin 3.0 gm/dl Test 01/31/17 07:43 Bedside Glucose 112 mg/dl Assessment and Plan Patient is a 81 year old male with a history of ischemic cardiomyopathy admitted with shortness of breath and pneumonia with incidental finding of elevated hepatic transaminases as well as heterogenous appearing liver with trace ascites with improved transaminases off Rocephin. 1. Continue to trend liver panel. 2. Continued hepatotoxin avoidance. 3. Supportive care per primary team. Agree with ALEXYS Christine as above Abd: Soft, NT, ND, +BS Continue supportive care Liver panel improving
--- NOTE | 2017-01-31 10:29 | CARDIOLOGY CONSULTATION ---
DATE OF CONSULTATION: 01/31/2017 TIME: 09:25 a.m. CONSULTING PHYSICIAN: Dr. Escalona. REASON FOR CONSULTATION: CHF. HISTORY OF PRESENT ILLNESS: Mr. Alcocer is a pleasant 81-year-old gentleman with expressive aphasia from prior stroke, who also has a history significant for ischemic cardiomyopathy status post ICD, CAD, and chronic systolic CHF. History is limited due to his speech deficits from prior stroke. He is able to provide some history with the help of a tablet and pen as well as his guardian, Jackeline Davis, who was personally contacted via telephone. He was seen in the office by me on 01/16/2017. He appeared to be well compensated at that time and the plan was to continue his current dose of Lasix, which he was prescribed 40 mg daily. Jackeline informs me today that she was giving him 20 mg instead. She had noted at that time, his appetite has not been as good. Lisinopril was discontinued at that time due to hypotension. He was on 5 mg daily. On higher doses in the past, he had hyperkalemia. Last week, she noticed that he was more short of breath with exertion and also that he was not eating as much. She called the office for shortness of breath and his Lasix was increased to 40 mg daily. With this, he lost 6 pounds and was down to 140 pounds on his home scale. He continued to have a poor appetite, however and she was forcing him to drink liquids; however, states that he was not drinking as much fluid as usual. After he lost 6 pounds, she was concerned that perhaps he would not in heart failure that he was not hypervolemic and therefore, she creased the Lasix on her own to 20 mg daily. She then presented to the hospital. He was found to have concerns for pneumonia on chest x-ray and also was found to have an elevated creatinine of 1.9 with his baseline typically near 1.6. It appears as though he was initially given some normal saline and Lasix was held. He then was given 1 dose of 40 mg of Lasix on 01/29/2017. Overall, however, during his hospitalization, his cumulative fluid balance is positive 2 liters. He indicates that he was short of breath. He appears comfortable now, however. He denies any pain such as chest pain. There has been no reported bleeding. Transaminases were also noted to be elevated and gastroenterology has been following him. Transaminases were elevated upon presentation and then his AST went from 97 up to 448 yesterday before trending downward today. There was a concern that this was perhaps due to antibiotic administration. His ALT upon presentation, however, was 363 and peaked at 581 before starting to trend downward. His ProBNP upon presentation was greater than 35,000. REVIEW OF SYSTEMS: As above and otherwise unobtainable due to the patient's expressive aphasia. PAST MEDICAL HISTORY: 1. Systolic CHF. 2. Ischemic cardiomyopathy. 3. CAD. 4. Left bundle-branch block. 5. Mitral regurgitation. 6. Biventricular ICD. 7. Diabetes. 8. Chronic kidney disease. 9. Dyslipidemia. 10. History of hypertension; however, has recently had hypotension. 11. Stroke. HOME MEDICATIONS: Include, 1. Lasix, prescribed 40 mg daily, but she typically gives him 20 mg daily. He did have an increased dose as noted above for 3 or 4 days prior to presentation. 2. Metoprolol succinate 100 mg daily. 3. Lantus. 4. Plavix 75 mg daily. 5. Aspirin 81 mg daily. INPATIENT MEDICATIONS: Include aspirin 81 mg daily, Plavix 75 mg daily, heparin 5,000 units subQ q. 12 hours, levofloxacin 750 mg IV every other day, and metoprolol succinate 100 mg daily. Doxycycline has been discontinued. Rocephin has been discontinued. ALLERGIES: No known drug allergies. SOCIAL HISTORY: Denies tobacco or drug abuse. He is a . He lives with his night cleaner, Jackeline Davis, who has been legally appointed durable healthcare power of pharmacy buyer. Another friend named Heather also lives there. FAMILY HISTORY: No known premature CAD. PHYSICAL EXAMINATION: VITAL SIGNS: Temperature 36.4 degrees, heart rate 67 beats per minute, respiratory rate 18, and blood pressure 115/86 mmHg; however, he has had intermittent episodes of hypotension as low as 89/63 mmHg. Oxygen saturation is 94% on room air. I's and O's positive 340 mL yesterday. Weight is pending. GENERAL: No acute distress. He is alert. HEENT: Anicteric sclerae. NECK: No appreciable JVD. No bruits. Normal carotid upstrokes bilaterally. CARDIAC EXAM: PMI is laterally displaced. No ventricular heave. Normal S1 and S2. No audible gallop. 2/6 holosystolic murmur best heard at the apex. No rubs. LUNGS: Decreased breath sounds at the bases, otherwise clear. ABDOMEN: Soft, nontender, and nondistended. Normoactive bowel sounds. No bruits noted. EXTREMITIES: No pitting edema. 1+ dorsalis pedis pulses bilaterally. No cyanosis. PSYCHIATRIC: Affect appears appropriate. NEUROLOGIC: Speech impairment noted. ECG upon presentation personally reviewed. Biventricular pacemaker. Sinus rhythm with intermittent atrial pacing. Chest x-ray image personally reviewed. Chest x-ray on 01/30/2017, right basilar opacity. Radiology has interpreted this as a right basilar infiltrate. LABORATORY DATA: Sodium 136, potassium 4.7, BUN 85, and creatinine 2.1, which is stable from yesterday. AST 275, ALT 530, and alkaline phosphatase 229. Albumin 3. Troponin levels, 0.252 was the peak. Magnesium was 3. White blood cell count 8.35, hemoglobin 15.7, and platelets 119. His most recent echocardiogram was done as an outpatient on 09/27/2016. This demonstrated severely dilated LV with severely reduced systolic function. EF 20%-25%. Type 3 diastolic dysfunction at that time. Akinesis of the inferolateral wall, mid to distal lateral wall, mid to distal anterior wall and with apical dyskinesis. The inferior wall, basal lateral wall and basal anterior wall were severely hypokinetic to akinetic. Otherwise, mild global hypokinesis. Mildly dilated RV with at least mildly reduced systolic function. Moderate left atrial dilation. Mild right atrial dilation. Moderate eccentric mitral regurgitation, mild to moderate TR, and RVSP 57 mmHg. ASSESSMENT AND PLAN: 1. Chronic systolic congestive heart failure: He does have chronic systolic congestive heart failure. His BNP was significantly elevated; however, he does not appear hypervolemic on exam. Also, his home weight is below history dry weight after taking increased dosing of Lasix for 3 or 4 days at 40 mg daily. He also had decreased oral intake of both food and liquids according to his night cleaner. Therefore, he likely was hypovolemic, which could have affected his renal function as also noted by nephrology. Continue to hold off on Lasix for now. At some point, we will need to resume Lasix and would recommend at this time 20 mg outpatient Lasix once daily as he did well on this dose as an outpatient for the past few months. Continue low sodium diet. Strict I's and O's. Recommend daily weights. 2. Acute on chronic renal insufficiency: Nephrology is following and I appreciate their input. Likely hypovolemic upon presentation. This is despite the fact that his ProBNP is significantly elevated. He is below his dry weight, had decreased oral intake and had increased diuretic for 3 or 4 days due to worsening shortness of breath. Continue to hold off on diuretics. His renal function has plateaued and hopefully will improve. His baseline creatinine is approximately 1.6. 3. Ischemic cardiomyopathy: Continue current dose of beta michael. ERASMO inhibitor was discontinued on 01/16/2017 that would not resume due to symptomatic hypotension in the past and hyperkalemia on higher doses of lisinopril. ICD is in place for primary prevention. 4. History of hypertension: Blood pressure is adequately controlled with intermittent episodes of hypotension. 5. Low cardiac output: As per above, his LV systolic function is severely impaired. If his renal function worsens, especially if he appears to be hypervolemic, would then consider inotropic support; however, given the fact that his transaminase levels and renal function have improved or plateaued, would hold off for now. 6. Mitral regurgitation: Nonsevere. This will be monitored over time. 7. CAD: Continue anti-platelet therapy. Continue beta-michael therapy. No angina. Statin therapy was held due to elevated transaminases. Restarted when safe. 8. Disposition: Plan of care has been discussed with nephrology and primary service, Dr. Escalona. Cardiology will continue to follow. Thank for allowing me to participate in the care of Mr. Alcocer. He does have a highly complex medical issues. Cardiology will continue to follow. [facility]
--- NOTE | 2017-01-31 10:39 | Nephrology Progress Note ---
Nephrology Progress Note Date of Service Jan 31, 2017. Chief Complaint Evaluation management for acute kidney injury with history of chronic kidney disease. Subjective Topher was seen and examined in his room this am. Renal function stable, cr 2.1 this am, other electrolytes stable. BP fair. UO decent. Denies SOB, CP. no LE edema Review of Systems A complete review of systems was performed. Pertinent positives are noted above. All other systems are negative. Vital Signs Last 8 Hrs Date Time Temp Pulse Resp B/P Pulse Ox O2 Delivery O2 Flow Rate FiO2 01/31/17 07:27 36.4 67 18 115/86 94 Room Air I & O 24-Hour Column 01/31/17 08:00 Intake Total 735 ml Output Total 475 ml Balance 260 ml Last Recorded Weight Weight (Kilograms): 65.200 Physical Exam GENERAL: elderly male, AAA x 3, pleasant, healthy-appearing, not in any distress. NECK: Supple, no JVD. RESPIRATORY: Normal breathing efforts, no accessory muscle use, clear to auscultation bilaterally, no wheezes or rales. CARDIOVASCULAR: S1, S2 normal, rate rhythm regular. EXTREMITY: No lower extremity edema NEURO: speech fluent. PSYCHIATRY: Normal mood and judgment Family History Depression FH: heart disease Hypertension Social History Alcohol Use: none Drug Use: none Marital Status: single Housing Status: other (lives with his guardian, Jackeline) Occupation: retired, disabled Laboratory Results Past 24 Hours 01/31/17 06:20 01/31/17 06:20 Test 01/30/17 11:24 01/30/17 16:32 01/30/17 20:39 01/31/17 06:20 Bedside Glucose 125 mg/dl (70-99) 142 mg/dl (70-99) 148 mg/dl (70-99) Red Blood Count 4.54 M/uL (4.7-6.1) Mean Corpuscular Volume 98.0 fL (80-100) Mean Corpuscular Hemoglobin 34.6 pg (25-34) Mean Corpuscular Hemoglobin Concent 35.3 g/dl (32-36) RDW Standard Deviation 52.3 fL (36.4-46.3) RDW Coefficient of Variation 14.9 % (11.5-14.5) Mean Platelet Volume 12.8 fL (7.4-10.4) Platelet Estimate DECREASED Anion Gap 12.0 mmol/L (3-11) Est Creatinine Clear Calc Drug Dose 26.3 ml/min Estimated GFR () 33.7 Estimated GFR (Non- 29.1 BUN/Creatinine Ratio 40.5 (10-20) Calcium Level 9.0 mg/dl (8.5-10.1) Total Bilirubin 1.6 mg/dl (0.2-1) Direct Bilirubin 0.6 mg/dl (0-0.2) Aspartate Amino Transf (AST/SGOT) 275 U/L (15-37) Alanine Aminotransferase (ALT/SGPT) 530 U/L (12-78) Alkaline Phosphatase 229 U/L (45-117) Total Protein 6.2 gm/dl (6.4-8.2) Albumin 3.0 gm/dl (3.4-5.0) Test 01/31/17 07:43 Bedside Glucose 112 mg/dl (70-99) Allergies Coded Allergies: No Known Allergies (Verified , 03/11/16) Medications Current Inpatient Medications Medications (Trade) Dose Ordered Sig/Em Route Start Time Stop Time Status Last Admin Dose Admin Aspirin (Ecotrin Tab) 81 mg QAM PO 01/28/17 09:00 02/27/17 08:59 01/31/17 08:31 81 MG Clopidogrel Bisulfate (plAVix TAB) 75 mg QAM PO 01/28/17 09:00 02/27/17 08:59 01/31/17 08:31 75 MG Metoprolol Succinate (Toprol Xl Tab) 100 mg DAILY PO 01/28/17 09:00 02/27/17 08:59 01/31/17 08:31 100 MG Acetaminophen (Tylenol Tab) 650 mg Q4H PRN PO 01/27/17 12:30 02/26/17 12:29 01/30/17 23:03 650 MG Al Hydrox/Mg Hydrox/Simethicone (Maalox Max Susp) 15 ml Q4H PRN PO 01/27/17 12:30 02/26/17 12:29 Ondansetron HCl (Zofran Inj) 4 mg Q6H PRN IV 01/27/17 12:30 02/26/17 12:29 Heparin Sodium (Porcine) (Heparin Sq 5000 Unit/0.5ml) 5,000 unit Q12H SQ 01/27/17 21:00 02/26/17 20:59 01/31/17 08:33 5,000 UNIT Insulin Aspart (novoLOG ASPART) SLIDING SCALE PARAMETER ACHS SC 01/27/17 16:00 02/26/17 15:59 01/28/17 17:06 2 UNITS Glucose (Glucose 40% Gel) 15-30 GRAMS 15 GRAMS... UD PRN PO 01/27/17 14:15 02/26/17 14:14 Glucose (Glucose Chew Tab) 4-8 Tablets 4 Tabl... UD PRN PO 01/27/17 14:15 02/26/17 14:14 Dextrose (Dextrose 50% 50ML Syringe) 25-50ML OF 50% DW IV FOR... UD PRN IV 01/27/17 14:15 02/26/17 14:14 Glucagon (Glucagon Inj) 1 mg UD PRN SQ 01/27/17 14:15 02/26/17 14:14 Furosemide (Lasix Tab) 40 mg QAM PO 01/29/17 09:00 02/28/17 08:59 Future Hold 01/29/17 10:45 40 MG Polyethylene (Miralax Powder Packet) 17 gm DAILY PO 01/30/17 09:00 03/01/17 08:59 01/31/17 08:31 17 GM Levofloxacin 1 ea 1 ea UD PRN N/A 01/30/17 12:45 03/01/17 12:44 Levofloxacin/Prmx (Levaquin / D5W/ Premixed D5W) 150 ml @ 100 mls/hr Q2D@1400 IV 01/30/17 14:00 02/06/17 13:59 01/30/17 14:10 100 MLS/HR Impression (1) Acute kidney injury (2) CKD (chronic kidney disease) stage 3, GFR 30-59 ml/min (3) RLL pneumonia (4) Acute on chronic systolic heart failure Topher is a 81-year-old gentlemen with stage 3 chronic kidney disease, hypertension, ischemic cardiomyopathy admitted to the hospital with pneumonia. On admission his creatinine was above his baseline ( B/L cr 1.4-1.6) 1.9 which slowly worsened over last few days and creatinine was 2.1 this morning. Although he has been on multiple antibiotics since admission, urinalysis was otherwise negative for pyuria, acute interstitial nephritis seems unlikely. Acute kidney injury most likely hemodynamically mediated. BUN creatinine ratio above 30 suggestive of some component of intravascular volume depletion. Urinalysis positive for trace proteinuria but no hematuria, pyuria. Blood pressure has been acceptable. Has history of ischemic cardiomyopathy, ejection fraction 20 % at home he was on Lasix 40 p.o. daily which was continued during hospital course until this morning. At home he was on lisinopril 5 milligrams p.o. daily, previously could not tolerate higher dose, he has not been getting that since admission. No nephro toxic medication exposure. Although patient seems intravascularly volume depleted, with ejection fraction only 20%, he has pulmonary congestion on exam and from the radiology study. We may have to accept some degree of azotemia to achieve euvolemia considering underlying cardiac condition. Recommendations --continue to hold diuretics --may consider stopping all antibiotic as pt had no fever, leukocytosis and denies cough, congestion and CXR without any clear evidence of pulmonary infiltrate --continue on low-salt, renal diet --if cr stable, Ok to discharge tomorrow with close out pt f/U --explained to the patient and discussed with caregiver Jackeline over telephone that patient has risk factors for further worsening of renal function and need to monitor closely Will follow This chart was completed utilizing [employer] Speech and voice recognition software. Grammatical errors, random word insertions, pronoun errors and incomplete sentences are occasional consequences of this system. Any questions or concerns about the content, text or information contained within the body of this dictation should be addressed directly to the physician for clarification.
--- NOTE | 2017-01-31 12:16 | Hospitalist Progress Note ---
Hospitalist Progress Note Date of Service Jan 31, 2017. (Celena Aremndariz ., KARSTEN-C) Subjective Pt evaluation today including: conversation w/ patient, physical exam, chart review, lab review, review of inpatient medication list PO Intake: Poor PO intake Voiding: voiding difficulty (making little urine) Difficult to obtain ROS due to expressive aphasia. The patient seems to complain of shortness of breath as well as orthopnea. He also complains of nausea, and he has not been eating very well. Per nursing, the patient has not had any vomiting today. Report from overnight states that he was able to urinate last night and did not require Brumfield catheter. The patient denies fevers, chills, sweats, chest pain, palpitations, claudication, cough, wheezing , vomiting, abdominal pain, dysuria, hematuria, urinary retention, paralysis, weakness, numbness and tingling. Additional Comments: See HPI for pertinent positives and negatives. All other systems reviewed and negative. (Celena Armendariz ., KARSTEN-C) Objective Vital Signs Date Time Temp Pulse Resp B/P Pulse Ox O2 Delivery O2 Flow Rate FiO2 01/31/17 08:00 Nasal Cannula 3.0 01/31/17 07:27 36.4 67 18 115/86 94 Room Air 01/31/17 00:00 36.3 65 18 94/65 93 2.0 01/30/17 23:45 Nasal Cannula 3.0 01/30/17 16:02 69 106/76 01/30/17 15:57 Nasal Cannula 3.0 01/30/17 15:34 36.5 67 19 89/63 100 Nasal Cannula 3.0 (Celena Armendariz, KARSTEN-C) Physical Exam General Appearance: WD/WN, no apparent distress Eyes: normal inspection, PERRL, sclerae normal ENT: normal ENT inspection, hearing grossly normal, pharynx normal Neck: supple, no JVD, trachea midline Respiratory/Chest: lungs clear, normal breath sounds, no respiratory distress, + decreased breath sounds (bases) Cardiovascular: regular rate, rhythm, no gallop, no murmur Abdomen: normal bowel sounds, soft, + tenderness (appears to have mild diffuse tenderness) Extremities: non-tender, normal inspection, + swelling (1+ pitting edema) Neurologic/Psychiatric: alert, normal mood/affect, + pertinent finding (unable to assess orientation) Skin: normal color, warm/dry, no rash (Celena Armendariz PA-C) Laboratory Results Last 24 Hours Test 01/30/17 16:32 01/30/17 20:39 01/31/17 06:20 01/31/17 07:43 Bedside Glucose 142 mg/dl 148 mg/dl 112 mg/dl White Blood Count 8.35 K/uL Red Blood Count 4.54 M/uL Hemoglobin 15.7 g/dL Hematocrit 44.5 % Mean Corpuscular Volume 98.0 fL Mean Corpuscular Hemoglobin 34.6 pg Mean Corpuscular Hemoglobin Concent 35.3 g/dl RDW Standard Deviation 52.3 fL RDW Coefficient of Variation 14.9 % Platelet Count 119 K/uL Mean Platelet Volume 12.8 fL Platelet Estimate DECREASED Sodium Level 136 mmol/L Potassium Level 4.7 mmol/L Chloride Level 102 mmol/L Carbon Dioxide Level 22 mmol/L Anion Gap 12.0 mmol/L Blood Urea Nitrogen 85 mg/dl Creatinine 2.10 mg/dl Est Creatinine Clear Calc Drug Dose 26.3 ml/min Estimated GFR () 33.7 Estimated GFR (Non- 29.1 BUN/Creatinine Ratio 40.5 Random Glucose 110 mg/dl Calcium Level 9.0 mg/dl Total Bilirubin 1.6 mg/dl Direct Bilirubin 0.6 mg/dl Aspartate Amino Transf (AST/SGOT) 275 U/L Alanine Aminotransferase (ALT/SGPT) 530 U/L Alkaline Phosphatase 229 U/L Total Protein 6.2 gm/dl Albumin 3.0 gm/dl Test 01/31/17 11:11 Bedside Glucose 123 mg/dl (Celena Armendariz PA-C) Diagnostic Results Reviewed the following studies and agree with interpretation as follows: Patient Name: HEATHER SMITH Unit Number: [id number] Dictated: 01/30/171337 Transcribed: 01/30/171337 PAJ Printed Date/Time: [~ rep prt dt]/[~ rep prt tm] [~ rep ct labl] - [~ rep ct ivnm] [facility] [place] [address] Dictated: 01/30/171337 Transcribed: 01/30/171337 PAJ Printed Date/Time: [~ rep prt dt]/[~ rep prt tm] [~ rep ct labl] - [~ rep ct ivnm] Patient: HEATHER SMITH Address1: [address] [facility] Rec: [id number] Address2: Acct ID: [id number] [facility] Zip: [place] [id number] Date: 1935 Sex: M Room/Bed: [facility] Ref Phy: Nini Quick PA-C SC: [id number] Att Phy: Tanya Escalona MD Report #: [id number] Jeny Phy: Nini Quick PA-C Test: KUB Admit Phy: Anant Zhang M.D. Dental Assistant Teacher: MARSHALL Interpreting Phy: Adithya Kauffman MD Diagnosis: ELEVATED TRIPONIN RLL PNEUMONIA Ordering Phy: Celena Armendariz PA-C Service Date: 01/30/17 Admit Date: 01/27/1703/12/17 MNE: [id number] CONF: DICTATED BY: Adithya Kauffman M.D.]] CC: Celena Armendariz ., Nini Polo PA-C, Natalie B., MD Endcc: [~ rep ct add3]] KUB HISTORY: elevated LFTs, vomiting COMPARISON: Chest and abdominal series 07/12/2011. FINDINGS: Multiple nondilated gas-filled loops of large and small bowel seen throughout the abdomen. There is a small amount of well-formed stool seen throughout the colon. The heart is enlarged. Small bilateral pleural effusions. There is a left-sided pacemaker/defibrillator present. No renal calculi. No ureteral calculi. No pneumoperitoneum or pneumatosis. IMPRESSION: No evidence for bowel obstruction. Small bilateral pleural effusions and cardiomegaly persist. Electronically signed by: Adithya Kauffman M.D. 01/30/2017 1:40 PM Dictated Date/Time: 01/30/2017 1:38 PM The status of this report is Signed. Draft = Not yet reviewed or approved by Radiologist. Signed = Reviewed and approved by Radiologist. <AttendingPhy>Tanya Escalona MD</AttendingPhy> <FamilyPhy>Nini Quick PA-C</FamilyPhy> <PrimaryPhy>Nini Quick PA-C</PrimaryPhy> < UnitNumber>[id number]</UnitNumber> <VisitNumber>[id number]</VisitNumber> < PatientName>HEATHER SMITH</PatientName> <DateOfBirth>1935</DateOfBirth> <Location>C.MS2W</Location> <ServiceDate>01/27/17</ServiceDate> <MNE>ESINDI</MNE > <OrderingPhy>Celena Armendariz PA-C</OrderingPhy> <OrderingPhyMNE>f rep ord dr srivastava</OrderingPhyMNE> <DictatingPhyMNE>f rep dict dr srivastava</DictatingPhyMNE> < CCListMNE>f rep ct mne</CCListMNE> <AdmittingPhyMNE>f pt admit dr srivastava</ AdmittingPhyMNE> <AttendingPhyMNE>f pt attend dr srivastava</AttendingPhyMNE> <ConsultingPhyMNE>f pt consult dr srivastava</ConsultingPhyMNE> <FamilyPhyMNE>f pt fam dr srivastava</FamilyPhyMNE> <OtherPhyMNE>f pt other dr srivastava</OtherPhyMNE> < PrimaryPhyMNE>f pt prim care dr srivastava</PrimaryPhyMNE> <ReferringPhyMNE>f pt referring dr srivastava</ReferringPhyMNE> (Celena Armendariz .DINAH) Assessment and Plan 81 y/o male history of ischemic cardiomyopathy with an EF of 21%, CAD with h/o IL, s/p AICD placement (2016), h/o CVA with hemorrhagic conversion, aphasia, diabetes mellitus, hypertension, PFO, and CKD stage III who presented to the ED with SOB. CXR shows pleural effusions and bibasilar consolidations. Initial labs significant for elevated LFTs and elevated creatinine above baseline. Community acquired pneumonia -Admit to telemetry. Transferred to med/surg as no tele events -D/C Rocephin as it may be contributing to elevated LFTs per GI. Will D/C doxy as well. -Continue Levaquin 750 mg IV q2d for total 7 days abx. Day #4 of 7. -D/C azithromycin due to prolonged QT -Influenza negative -Repeat CXR on 01/30 shows progressive CHF with superimposed right basilar infiltrate and stable bilateral pleural effusions Elevated LFTs--? secondary to illness vs statin vs biliary obstruction. Pt vomited this morning immediately after breakfast -Significant increase in LFTs on 01/30 compared to 01/29. After discontinuing Rocephin and Doxy, LFTs have improved on 01/31 -Hepatitis panel negative -KUB shows no bowel obstruction. Small bilateral pleural effusions and cardiomegaly persist -Continue to trend LFTs -Hold atorvastatin -Liver U/S: hepatic steatosis, cholelithiasis, right pleural effusion, small abdominal ascites -Menominee negative -HIDA normal Ischemic cardiomyopathy, chronic systolic CHF with LVEF 21 % [place] [address] -Hold Lasix due to elevated creatinine -Continue to monitor -Cardiology consulted, appreciate recs: Continue to hold diuretics for now. Continue to monitor and creatinine will hopefully stabilize Elevated troponin--no chest pain. Likely secondary to renal fxn. Appears chronic. Elevated to 0.6-0.8 in February 2016 -Monitor in tele. No acute events overnight on telemetry. Patient was paced with PVCs -Repeat troponin 01/29 trending down at 0.232 Acute on Chronic Kidney disease stage III-baseline cr 1.6 -Creatinine on 01/31 2.1, no change from 01/30 -Nephrology consulted, appreciate recs: Continue to monitor for now and hold Lasix today. May be able to discharge tomorrow if creatinine remains stable -Continue to monitor Possible urinary retention vs oliguria -Bladder scans when necessary -Straight cath if more than 300 mL CAD w/hx IL -Continue metoprolol ER 100 mg PO qd, ASA 81 mg PO qd, Plavix 75 mg PO qd DM--pt noncompliant with Lantus at home -Prescribed Lantus 8 units SC qam and 13 units SC qpm -->has not been taking. Will continue to hold -Insulin sliding scale -Check BSGs q ac and qhs DVT prophylaxis -Heparin 5000 units SC q12h -TEDS, SCDs Code Status -Level V, DO NOT RESUSCITATE (Celena Armendariz ., PA-C) History Physician Java Technical Manager Supervision Note: I interviewed and examined the patient. Discussed with KARSTEN Armendariz and agree with findings and plan as documented in the note. Any exceptions or clarifications are listed here: Vitals reviewed NAD, sitting in bed, pleasant, able to answer some yes/no questions after writing questions on paper RRR no mgr nl S1S2 decreased BS in right base, otherwise CTAB, breathing unlabored Abd +BS, soft NT ND Ext trace pitting edema legs to knees bilat 81 yo male with RLL PNA, bilat pleural effusions, severe chronic combined biventricular systolic and diastolic CHF, with worsening elevated LFTs without abd pain. LFTs likely up due to antibiotics combined with hepatic congestion from CHF and now improving. Flu neg, Menominee neg, Hep B and C neg, Hep A pending, HIDA normal, Cholelithiasis on US but not symptomatic Renal function stable. APpreciate Nephrology recommendations-may need dobutamine gtt if renal function worsens. Restart lasix 20mg daily upon discharge, hopefully tomorrow if renal fxn stable. Appreciate GI recommendations -follow PRP -Levaquin and finish out 7 day course -consult Cardiology appreciated -follow LFTs -follow CXR to resolution of PNA in 3-4 weeks as an outpatient Documented By: Tanya Escalona (Tanya Escalona MD)
[2017-01-31 14:36] VITALS: BP 102/67; PULSE 79; TEMP 36.6; O2SAT 94
[2017-01-31 21:03] VITALS: O2SAT 94
[2017-01-31 22:34] VITALS: BP 104/73; PULSE 68; TEMP 36.8; O2SAT 90
[2017-02-01] MEDS: INSULIN ASPART 100 UNITS/ML 3 ML PEN SC SCH ×2 (06:30→11:00)
[2017-02-01 06:55] VITALS: BP 93/63; PULSE 83; TEMP 36.2; O2SAT 95
[2017-02-01 07:08] LABS: BUN/CREATININE RATIO 42.3 (10-20); CALCIUM 8.8 mg/dl (8.5-10.1); CREATININE 1.9 mg/dl (0.60-1.40); POTASSIUM 4.5 mmol/L (3.5-5.1)
[2017-02-01 07:23] LABS: HEMATOCRIT 45.9 % (42-52); MEAN CELL VOLUME 97.9 fL (80-100); MEAN CORPUSCULAR HEMOGLOBIN 34.1 pg (25-34); MEAN CORPUSCULAR HGB CONC 34.9 g/dl (32-36); MEAN PLATELET VOLUME 12.2 fL (7.4-10.4); PLATELET COUNT 119 K/uL (130-400); RED BLOOD COUNT 4.69 M/uL (4.7-6.1); WHITE BLOOD COUNT 4.54 K/uL (4.8-10.8)
[2017-02-01 07:46] VITALS: BP 98/74; PULSE 62; TEMP 36.3; O2SAT 95
[2017-02-01] MEDS: CLOPIDOGREL BISULFATE 75 MG TAB PO SCH (08:30)
[2017-02-01] MEDS: HEPARIN SOD 5000 UNIT/0.5 ML CARP SQ SCH (08:30)
[2017-02-01] MEDS: ASPIRIN 81 MG ECTAB PO SCH (08:30)
[2017-02-01] MEDS: METOPROLOL SUCC 50MG EXT REL TAB PO SCH (08:31)
[2017-02-01 08:32] VITALS: BP 96/64; PULSE 64
[2017-02-01] MEDS: POLYETHYLENE (MIRALAX) 17 GM PACK PO SCH (08:32)
[2017-02-01 09:43] VITALS: O2SAT 95
[2017-02-01] MEDS ORDERED: LSX20 PO (10:36)
[2017-02-01] MEDS ORDERED: LEVO750T23 PO (10:36)
--- NOTE | 2017-02-01 10:50 | CARDIOLOGY PROGRESS NOTE ---
DATE: 02/01/2017 TIME: 10:09 a.m. SUBJECTIVE: Mr. Alcocer denies chest pain or shortness of breath. He indicated that he feels well; however, there is a language barrier. He is currently alone in his hospital room. OBJECTIVE: VITAL SIGNS: Temperature 36.3 degrees, heart rate 64 beats per minute, respiratory rate 17, blood pressure 96/64 mmHg, and oxygen saturation 95% on room air. I's and O's were incomplete. Yesterday's weight is 65.9 kg. GENERAL: No acute distress. He is alert. NECK: JVP is more elevated compared to yesterday. CARDIAC EXAM: No ventricular heave. Regular, normal S1 and S2. 2/6 holosystolic murmur best heard at the apex. No rubs or gallops. LUNGS: Decreased breath sounds at the bases, but otherwise clear. ABDOMEN: Soft, nontender, and nondistended. Normoactive bowel sounds. EXTREMITIES: No cyanosis or pitting edema. PSYCHIATRIC: Affect appears appropriate. MEDICATIONS: Include aspirin 81 mg daily, Plavix 75 mg daily, heparin 5,000 units subQ q. 12 hours, levofloxacin 750 mg IV every other day, and metoprolol succinate 100 mg daily; however, it has been held so far this morning. LABORATORY DATA: White blood cell count 4.54, hemoglobin 16, and platelets 119. Sodium 137, potassium 4.5, BUN 80, and creatinine 1.9 down from 2.1. AST 122 down from 275. Albumin 2.8. ASSESSMENT AND PLAN: 1. Chronic systolic congestive heart failure: His volume status appears to be more appropriate today. We would recommend that he resume 20 mg of Lasix today or tomorrow. Would continue 20 mg chronically at home. Close followup in the outpatient cardiology clinic. Renal function is improving. 2. Acute on chronic renal sufficiency: Likely secondary to intravascular hypovolemia also in the setting of a low cardiac output. This was in the setting of decreased oral intake and increased Lasix dosing. Renal function has improved with holding off diuretic. 3. Ischemic cardiomyopathy: ERASMO inhibitor was discontinued on 01/16/2017. Would not resume this medication due to symptomatic hypotension and a history of hyperkalemia on higher doses. Continue beta michael therapy. ICD in place for primary prevention. Hypotensive currently, but asymptomatic. Would continue beta michael therapy. 4. CAD: Continue anti-platelet therapy. Denies chest discomfort. Resume statin therapy when safe. Statin was held with elevated transaminases during this hospitalization. Continue beta-michael. 5. Disposition: Follow up with cardiology. Cardiology appointment should be made within the next 7-10 days. Plan of care has been discussed with Dr. Escalona of the primary hospitalist service. Plan of care was also discussed with Dr. Buitrago. TARA
--- NOTE | 2017-02-01 11:13 | Discharge Instructions ---
Discharge Instructions Date of Service Feb 01, 2017. (Celena Armendariz .DINAH) Admission Reason for Admission: Elevated Triponin Rll Pneumonia (Celena Armendariz PA-C) Discharge Discharge Diagnosis / Problem: Acute on chronic kidney disease, elevated liver function tests, pneumonia (Celena Armendariz PA-C) Discharge Goals Goal(s): Decrease discomfort, Improve function, Diagnostic testing, Therapeutic intervention (Celena Armendariz PA-C) Activity Recommendations Activity Limitations: resume your previous activity . (Celena Armendariz PA-C) Instructions / Follow-Up Instructions / Follow-Up You were admitted to the hospital after presenting to the ED with shortness of breath. A chest x-ray showed bilateral pleural effusions and a community- acquired pneumonia. Your initial labs on arrival also showed elevated liver function tests (LFTs). Your cholesterol medication, atorvastatin, was therefore held as this can contribute to elevated LFTs. You were also found to have an elevated troponin, which is an enzyme that is typically elevated when there is damage to the heart. This enzyme can also be elevated with impaired kidney function. Upon arrival, you were found to have acute worsening of your chronic kidney disease. Since you were not having any chest pain and your elevated troponin seems to be a chronic issue, this is likely due to your kidney function. Workup for the elevated LFTs included a liver ultrasound, which showed a fatty liver, gallstones and a small amount of fluid; a HIDA scan to check for gallbladder obstruction, which was negative; an x-ray of the kidneys, ureters and bladder, which was negative for bowel obstruction; and checking a hepatitis panel, which was negative. Your LFTs may be elevated due to several factors, such as the antibiotics used for your pneumonia as well as hepatic congestion from your chronic congestive heart failure. You were also found to have a right lower lobe pneumonia which was treated with IV antibiotics. Changes were made to your antibiotics due to the elevated LFTs. You'll be discharged on oral Levaquin to take every other day as directed below. Both cardiology and nephrology were consulted on the case. As your kidney function has stabilized and your LFTs are improving, they are agreement that you are stable for discharge. Medications: *Please take furosemide (Lasix) 20 mg by mouth every morning. This is a decrease in your previous home dose. You may take an additional 20 mg in the afternoon if you notice sudden weight gain or increased swelling. *Please hold your cholesterol medication, atorvastatin, for now due to the elevated LFTs. You may resume this medication at a half dose of 40 mg at the discretion of your primary care provider or when okay with cardiology. *Please take Levaquin 750 mg by mouth every other day for the next 5 days. The first dose is due today on 02/01. Last dose will be on 02/05. *You may continue taking your other home medications as prescribed. Follow up: *You have been scheduled for a follow-up with your primary care provider, Nini Quick PA-C February 05 at 8:45 AM. *You have been scheduled to follow up with Dr. Buitrago (nephrology) on February 06 at 8:45 am. *You have been scheduled to follow up at Dr. Rivas's (cardiology) office with Keyona Garcia PA-C on February 18 at 9:00 am. *You will need a follow up chest x-ray in 3-4 weeks to ensure resolution of your pneumonia. *You will be given a prescription for follow up labs in 1 week to ensure your kidney function is still stable/improving. Please seek medical attention if you experience fevers, chills, sweats, chest pain, shortness of breath, nausea, vomiting, numbness or tingling, lightheadedness or loss of consciousness. (Celena Armendariz .DINAH) Current Hospital Diet Patient's current hospital diet: Diabetes Type 2 Diet (Celena Armendariz PA-C) Discharge Diet Recommended Diet: Diabetes Type 2 Diet (Celena Armendariz PA-C) Pending Studies Studies pending at discharge: no (Celena Armendariz PA-C) Laboratory Results Lipid Panel Test 01/14/17 08:09 Range/Units Triglycerides Level 63 0-150 mg/dl Cholesterol Level 105 0-200 mg/dl HDL Cholesterol 43 mg/dl Cholesterol/HDL Ratio 2.4 LDL Cholesterol, Calculated 49 mg/dl (Celena Armendariz PA-C) Medical Emergencies . Who to Call and When: Medical Emergencies: If at any time you feel your situation is an emergency, please call 911 immediately. . (Celena Armendariz PA-C) Non-Emergent Contact Non-Emergency issues call your: Primary Care Provider, Liquid Yeast Supervisor, Seconds Grader Call Non-Emergent contact if: you have a fever, you have any medication questions . (Celena Armendariz PA-C) Past History Medical & Surgical History: (1) Elevated liver function tests (2) RLL pneumonia (3) Elevated troponin (4) Acute kidney injury (Celena Armendariz PA-C) . "Provider Documentation" section prepared by Celena Armendariz. (Celena Armendariz PA-C) VTE Core Measure Inpt VTE Proph given/why not?: Unfractionated heparin SQ, T.E.D. Stockings, SCD 's (Celena Armendariz PA-C)
[2017-02-01] MEDS ORDERED: ATOR-26 PO (11:49)
[2017-02-01 12:04] VITALS: BP 96/64; PULSE 64; TEMP 36.3; O2SAT 95
--- NOTE | 2017-02-01 12:05 | Nephrology Progress Note ---
Nephrology Progress Note Date of Service Feb 01, 2017. Chief Complaint Evaluation management for acute kidney injury with history of chronic kidney disease. Subjective Topher was seen and examined in his room this am. Renal function stable, cr 2.0 this am, other electrolytes stable. BP fair. UO decent. Denies SOB, CP. no LE edema Review of Systems A complete review of systems was performed. Pertinent positives are noted above. All other systems are negative. Vital Signs Last 8 Hrs Date Time Temp Pulse Resp B/P Pulse Ox O2 Delivery O2 Flow Rate FiO2 02/01/17 08:32 64 96/64 02/01/17 07:46 36.3 62 17 98/74 95 Room Air 02/01/17 06:55 36.2 83 20 93/63 95 Room Air I & O 24-Hour Column 02/01/17 08:00 Intake Total 425 ml Balance 425 ml Last Recorded Weight Weight (Kilograms): 65.900 Physical Exam GENERAL: elderly male, AAA x 3, pleasant, healthy-appearing, not in any distress. NECK: Supple, no JVD. RESPIRATORY: Normal breathing efforts, no accessory muscle use, clear to auscultation bilaterally, no wheezes or rales. CARDIOVASCULAR: S1, S2 normal, rate rhythm regular. EXTREMITY: No lower extremity edema NEURO: speech fluent. PSYCHIATRY: Normal mood and judgment Family History Depression FH: heart disease Hypertension Social History Alcohol Use: none Drug Use: none Marital Status: single Housing Status: other (lives with his guardian, Jackeline) Occupation: retired, disabled Laboratory Results Past 24 Hours 02/01/17 06:05 02/01/17 06:05 Test 01/31/17 11:11 01/31/17 16:32 01/31/17 20:11 02/01/17 06:05 Bedside Glucose 123 mg/dl (70-99) 117 mg/dl (70-99) 117 mg/dl (70-99) Red Blood Count 4.69 M/uL (4.7-6.1) Mean Corpuscular Volume 97.9 fL (80-100) Mean Corpuscular Hemoglobin 34.1 pg (25-34) Mean Corpuscular Hemoglobin Concent 34.9 g/dl (32-36) RDW Standard Deviation 51.9 fL (36.4-46.3) RDW Coefficient of Variation 14.9 % (11.5-14.5) Mean Platelet Volume 12.2 fL (7.4-10.4) Anion Gap 9.0 mmol/L (3-11) Est Creatinine Clear Calc Drug Dose 29.4 ml/min Estimated GFR () 38.0 Estimated GFR (Non- 32.8 BUN/Creatinine Ratio 42.3 (10-20) Calcium Level 8.8 mg/dl (8.5-10.1) Total Bilirubin 1.6 mg/dl (0.2-1) Direct Bilirubin 0.6 mg/dl (0-0.2) Aspartate Amino Transf (AST/SGOT) 122 U/L (15-37) Alanine Aminotransferase (ALT/SGPT) 378 U/L (12-78) Alkaline Phosphatase 186 U/L (45-117) Total Protein 6.0 gm/dl (6.4-8.2) Albumin 2.8 gm/dl (3.4-5.0) Test 02/01/17 07:29 Bedside Glucose 98 mg/dl (70-99) Allergies Coded Allergies: No Known Allergies (Verified , 03/11/16) Medications Current Inpatient Medications Medications (Trade) Dose Ordered Sig/Em Route Start Time Stop Time Status Last Admin Dose Admin Aspirin (Ecotrin Tab) 81 mg QAM PO 01/28/17 09:00 02/27/17 08:59 02/01/17 08:30 81 MG Clopidogrel Bisulfate (plAVix TAB) 75 mg QAM PO 01/28/17 09:00 02/27/17 08:59 02/01/17 08:30 75 MG Metoprolol Succinate (Toprol Xl Tab) 100 mg DAILY PO 01/28/17 09:00 02/27/17 08:59 01/31/17 08:31 100 MG Acetaminophen (Tylenol Tab) 650 mg Q4H PRN PO 01/27/17 12:30 02/26/17 12:29 01/30/17 23:03 650 MG Al Hydrox/Mg Hydrox/Simethicone (Maalox Max Susp) 15 ml Q4H PRN PO 01/27/17 12:30 02/26/17 12:29 Ondansetron HCl (Zofran Inj) 4 mg Q6H PRN IV 01/27/17 12:30 02/26/17 12:29 Heparin Sodium (Porcine) (Heparin Sq 5000 Unit/0.5ml) 5,000 unit Q12H SQ 01/27/17 21:00 02/26/17 20:59 02/01/17 08:30 5,000 UNIT Insulin Aspart (novoLOG ASPART) SLIDING SCALE PARAMETER ACHS SC 01/27/17 16:00 02/26/17 15:59 01/28/17 17:06 2 UNITS Glucose (Glucose 40% Gel) 15-30 GRAMS 15 GRAMS... UD PRN PO 01/27/17 14:15 02/26/17 14:14 Glucose (Glucose Chew Tab) 4-8 Tablets 4 Tabl... UD PRN PO 01/27/17 14:15 02/26/17 14:14 Dextrose (Dextrose 50% 50ML Syringe) 25-50ML OF 50% DW IV FOR... UD PRN IV 01/27/17 14:15 02/26/17 14:14 Glucagon (Glucagon Inj) 1 mg UD PRN SQ 01/27/17 14:15 02/26/17 14:14 Furosemide (Lasix Tab) 40 mg QAM PO 01/29/17 09:00 02/28/17 08:59 Future Hold 01/29/17 10:45 40 MG Polyethylene (Miralax Powder Packet) 17 gm DAILY PO 01/30/17 09:00 03/01/17 08:59 02/01/17 08:32 17 GM Levofloxacin 1 ea 1 ea UD PRN N/A 01/30/17 12:45 03/01/17 12:44 Levofloxacin/Prmx (Levaquin / D5W/ Premixed D5W) 150 ml @ 100 mls/hr Q2D@1400 IV 01/30/17 14:00 02/06/17 13:59 01/30/17 14:10 100 MLS/HR Impression (1) Acute kidney injury Topher is a 81-year-old gentlemen with stage 3 chronic kidney disease, hypertension, ischemic cardiomyopathy admitted to the hospital with pneumonia. On admission his creatinine was above his baseline ( B/L cr 1.4-1.6) 1.9 which slowly worsened over last few days and creatinine was 2.1 this morning. Although he has been on multiple antibiotics since admission, urinalysis was otherwise negative for pyuria, acute interstitial nephritis seems unlikely. Acute kidney injury most likely hemodynamically mediated. BUN creatinine ratio above 30 suggestive of some component of intravascular volume depletion. Urinalysis positive for trace proteinuria but no hematuria, pyuria. Blood pressure has been acceptable. Has history of ischemic cardiomyopathy, ejection fraction 20 % at home he was on Lasix 40 p.o. daily which was continued during hospital course until this morning. At home he was on lisinopril 5 milligrams p.o. daily, previously could not tolerate higher dose, he has not been getting that since admission. No nephro toxic medication exposure. Although patient seems intravascularly volume depleted, with ejection fraction only 20%, he has pulmonary congestion on exam and from the radiology study. We may have to accept some degree of azotemia to achieve euvolemia considering underlying cardiac condition. Recommendations --as renal function stable over last few days, creatinine around 2, okay to be discharged this chest with outpatient lab monitoring in a week. will see him in the office for follow-up in 2-3 weeks -- okay to restart on Lasix 20 milligram on discharge and his caregiver can add just the dose accordingly and he will follow with [facility] in a week Will follow
[2017-02-01] MEDS ORDERED: LEVOFLOXACIN 750 MG TAB PO ONE (14:30)
--- NOTE | 2017-02-01 15:21 | Discharge Summary ---
Discharge Summary Date of Service Feb 01, 2017. 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 First dose on 02/01/17. Changed Medications: Atorvastatin (Lipitor) 80 Mg Tab 40 MG PO QAM for 30 Days, TAB (Changed from: 80 MG) DO NOT TAKE UNTIL ADVISED TO DO SO BY CARDIOLOGY AFTER NEXT BLOOD WORK TO CHECK YOUR LIVER Furosemide (Furosemide) 20 Mg Tab 20 MG PO QAM for 30 Days, #60 TABS (Changed from: Furosemide 40 Mg Tab 40 Mg PO QAM) Take 1 tablet by mouth every morning. Take an additional 20 mg in the afternoon if you notice weight gain or swelling. Continued Medications: Aspirin (Aspirin Ec) 81 Mg Tab 81 MG PO QAM Clopidogrel (Plavix) 75 Mg Tab 75 MG PO QAM, 0 Refills Ferrous Sulfate (Feosol) 65 Mg Tab 1 TAB PO BIDM Insulin Glargine (Lantus) 100 Unit/Ml Inj 8 UNITS SC QAM PRN for PRN, VIAL LEGAL GUARDIAN SAID PT REFUSES IT MOST OF THE TIME, SO THEY DON'T GIVE IT EVERY TIME Insulin Glargine (Lantus) 100 Unit/Ml Inj 13 UNIT SC QPM PRN for PRN, VIAL LEGAL GUARDIAN SAID PT REFUSES IT MOST OF THE TIME, SO THEY DON'T GIVE IT EVERY TIME Metoprolol Succ (Toprol Xl) (Toprol-Xl ) 100 Mg Tabcr 100 MG PO DAILY, TAB Referrals At Discharge Follow up Referrals: Floral Manager Referral - Within 1-2 Weeks with Deepak Rivas MD Obstetrician And Gynaecologist Referral - Within 2 Weeks with Gisselle Buitrago MD In 2-3 weeks Discharge Exam Difficult to obtain ROS from patient due to expressive aphasia. The patient not complain of shortness of breath today or any abdominal pain. He states that he is not eating well but denies any nausea. Per nursing, the patient has not had any more vomiting and does occasionally get up to urinate, although he is not making much urine. The patient denies fevers, chills, sweats, chest pain , palpitations, claudication, cough, wheezing, shortness of breath, nausea, vomiting, abdominal pain, dysuria, hematuria, urinary retention, paralysis, weakness, numbness and tingling. Review of Systems: Constitutional: + problem reported (little appetite), No chills, No fever, No sweats Eyes: No diplopia, No eye pain, No worsening of vision ENT: No hearing loss, No sore throat, No trouble swallowing Respiratory: No cough, No shortness of breath, No wheezing Cardiovascular: No chest pain, No claudication, No palpitations Abdomen: No nausea, No pain, No vomiting Musculoskeletal: No joint pain, No muscle pain Genitourinary - Male: No dysuria, No hematuria, No urinary retention Neurologic: No numbness/tingling, No paralysis, No weakness Integumentary: No color change, No itch, No rash Physical Exam: General Appearance: WD/WN, no apparent distress Eyes: normal inspection, PERRL, sclerae normal ENT: normal ENT inspection, hearing grossly normal, pharynx normal Neck: supple, no JVD, trachea midline Respiratory/Chest: lungs clear, normal breath sounds, no respiratory distress, + decreased breath sounds (bases) Cardiovascular: regular rate, rhythm, no gallop, no murmur Abdomen / GI: normal bowel sounds, non tender, soft Extremities: normal inspection, no calf tenderness, + swelling (1+ pitting edema) Neurologic/Psychiatric: alert, normal mood/affect, + pertinent finding ( unable to assess orientation) Skin: normal color, warm/dry, no rash (Celena Armendariz, [facility]) Hospital Course 81 y/o male history of ischemic cardiomyopathy with an EF of 21%, CAD with h/o OK, s/p AICD placement (2015), h/o CVA with hemorrhagic conversion, aphasia, diabetes mellitus, hypertension, PFO, and CKD stage III who presented to the ED with SOB. CXR shows pleural effusions and bibasilar consolidations. Initial labs significant for elevated LFTs and elevated creatinine above baseline. Community acquired pneumonia -Admit to telemetry. Transferred to med/surg as no tele events -D/C Rocephin as it may be contributing to elevated LFTs per GI. Will D/C doxy as well. -Continue Levaquin 750 mg IV q2d for total 7 days abx. Day #5 of 7. Script for remaining doses fo Levaquin 750 mg PO q2d given. -D/C azithromycin due to prolonged QT -Influenza negative -Repeat CXR on 01/30 shows progressive CHF with superimposed right basilar infiltrate and stable bilateral pleural effusions -Prescription given for follow-up chest x-ray in 3-4 weeks to ensure resolution. Elevated LFTs--may be secondary to medications and hepatic congestion due to CHF -Significant increase in LFTs on 01/30 compared to 01/29. After discontinuing Rocephin and Doxy, LFTs have improved on 01/31. Continue to improve 02/01 -Hepatitis panel negative -KUB shows no bowel obstruction. Small bilateral pleural effusions and cardiomegaly persist -Hold atorvastatin at discharge. Can consider resuming at half dose at discretion of PCP or cardiology -Liver U/S: hepatic steatosis, cholelithiasis, right pleural effusion, small abdominal ascites -[place] negative -HIDA normal Ischemic cardiomyopathy, chronic systolic CHF with LVEF 21 % [place] [address] -Hold Lasix due to elevated creatinine -Continue to monitor -Cardiology consulted, appreciate recs: Discharge on Lasix 20 mg PO qam, f/u in 7-10 days. Elevated troponin--no chest pain. Likely secondary to renal fxn. Appears chronic. Elevated to 0.6-0.8 in February 2016 -Monitor in tele. No acute events overnight on telemetry. Patient was paced with PVCs -Repeat troponin 01/29 trending down at 0.232 Acute on Chronic Kidney disease stage III-baseline cr 1.6 -Creatinine on 01/31 2.1, no change from 01/30 -Creatinine improved to 1.9 on 02/01 -Nephrology consulted, appreciate recs: Stable for discharge as creatinine is stable. Recommend taking Lasix 20 mg PO BID if his caregiver notices weight gain or swelling. Follow-up CMP in 1 week. Follow-up with Dr. Buitrago in 2-3 weeks. -Continue to monitor Possible urinary retention vs oliguria -Bladder scans when necessary -Straight cath if more than 300 mL CAD w/hx OK -Continue metoprolol ER 100 mg PO qd, ASA 81 mg PO qd, Plavix 75 mg PO qd DM--pt noncompliant with Lantus at home -Prescribed Lantus 8 units SC qam and 13 units SC qpm -->has not been taking. Will continue to hold -Insulin sliding scale -Check BSGs q ac and qhs DVT prophylaxis -Heparin 5000 units SC q12h -TEDS, SCDs Code Status -Level V, DO NOT RESUSCITATE Dispo -Patient will return to home with 10/06 with private caregivers -Patient scheduled for follow-up appointments with cardiology and nephrology as well as his PCP Total Time Spent: Greater than 30 minutes This includes examination of the patient, discharge planning, medication reconciliation, and communication with other providers. (Celena Armendariz .DINAH) Discharge Instructions Please refer to the electronic Patient Visit Report (Discharge Instructions) for additional information. (Celena Armendariz .DINAH) Additional Copies To Nini Quick PA-C History Physician Bi Architect Supervision Note: I interviewed and examined the patient. Discussed with KARSTEN Armendariz and agree with findings and plan as documented in the note. Any exceptions or clarifications are listed here: Pt feeling well, making adequate urine and no retention of urine, no abd pain. 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 LFTs likely up due to antibiotics combined with hepatic congestion from CHF and now improving. Flu neg, [place] neg, Hep B and C neg, Hep A pending, HIDA normal, Cholelithiasis on US but not symptomatic Renal function improved today APpreciate Nephrology recommendations -restart po lasix 20mg daily and 20mg in afternoon prn leg edema or wt gain Appreciate GI recommendations -follow PRP and LFTs as outpt -Levaquin and finish out 7 day course -consult Cardiology appreciated-f/u in 2 weeks -follow CXR to resolution of PNA in 3-4 weeks as an outpatient Documented By: Tanya Escalona (Tanya Escalona MD)
[2017-02-03] MEDS ORDERED: LEVOFLOXACIN 750 MG TAB PO SCH (11:00)
== END 2017-02-01 17:30 | disposition home or self-care (01) | DRG 194 ==
LOC: ENRESERVDT → ENRESERVTM → CANRESERV → C.EDB 10:46 → C.2E 12:39 → CANBEDREQ 12:43 → EDBEDREQ 12:47 → C.MS2W 01-28 19:02
PROVIDERS: ADMIT Internal Medicine; ATTEND Family Medicine
DX: J18.9 Pneumonia, unspecified organism (principal); N17.9 Acute kidney failure, unspecified; I50.22 Chronic systolic (congestive) heart failure; E11.9 Type 2 diabetes mellitus without complications; Z66 Do not resuscitate; N18.3 Chronic kidney disease, stage 3 (moderate); E86.0 Dehydration; I12.9 Hypertensive chronic kidney disease with stage 1 through stage 4 chronic kidney disease, or unspecified chronic kidney disease; I25.5 Ischemic cardiomyopathy; I25.2 Old myocardial infarction; Z95.810 Presence of automatic (implantable) cardiac defibrillator; Z79.4 Long term (current) use of insulin; Z91.19 Patient's noncompliance with other medical treatment and regimen; Z82.49 Family history of ischemic heart disease and other diseases of the circulatory system; I69.320 Aphasia following cerebral infarction

== ENCOUNTER → 2017-02-06 | Outpatient (CLI) | payer OTHER ==
[~2017-02-06] MED LIST changes: -ATOR-24 PO; +ATOR-26 PO; -FURO20TA PO; +LEVO750T23 PO; -LSN5 PO; +LSX20 PO
[2017-02-06 11:37] LABS: ESTIMATED AVERAGE GLUCOSE 154 mg/dl; HA1C FLAG Normal (Normal)
[2017-02-06 11:43] LABS: BLOOD UREA NITROGEN 79 mg/dl (7-18); BUN/CREATININE RATIO 34.2 (10-20); CALCIUM 8.9 mg/dl (8.5-10.1); CARBON DIOXIDE 25 mmol/L (21-32); CHLORIDE 105 mmol/L (98-107); GLUCOSE 132 mg/dl (70-99); MAGNESIUM 3.3 mg/dl (1.8-2.4); POTASSIUM 4.2 mmol/L (3.5-5.1); SODIUM 142 mmol/L (136-145)
[2017-02-06 12:21] LABS: ACANTHOCYTES 1+; BASO % 0.1 %; BASO ABS # 0.01 K/uL (0-0.2); COMPLETE YES; EOS % 0.3 %; HEMATOCRIT 43.2 % (42-52); IG% 0.2 %; LYMPH % 7.6 %; MEAN CELL VOLUME 98.2 fL (80-100); MEAN CORPUSCULAR HEMOGLOBIN 33.6 pg (25-34); MEAN CORPUSCULAR HGB CONC 34.3 g/dl (32-36); MONO % 2.7 %; NEUT % 89.1 %; PLATELET COUNT 109 K/uL (130-400); WHITE BLOOD COUNT 9.23 K/uL (4.8-10.8)
== END | disposition home or self-care (01) ==
LOC: C.LAB1850 09:51
PROVIDERS: ATTEND Internal Medicine Cardiovascular Disease
DX: E11.22 Type 2 diabetes mellitus with diabetic chronic kidney disease (principal); N18.9 Chronic kidney disease, unspecified

== ENCOUNTER 2017-02-08 08:31 | Inpatient (IN) | payer OTHER ==
[~2017-02-08] VITALS: Ht 177.8 cm; Wt 70.6 kg
[2017-02-08] VITALS (7 sets, daily range): BP systolic 83–94; BP diastolic 51–67; PULSE 60–73; TEMP 35.3–36.7; O2SAT 98–100; BMI 21.4
[~2017-02-08 08:31] MED LIST changes: -LEVO750T23 PO; +METO100T44 PO; -METO1TAB69 PO
--- NOTE | 2017-02-08 09:08 | EMERGENCY ROOM VISIT NOTE ---
History Report prepared by Moni: Stanley Hansen Under the Supervision of: Dr. Donavan Ley M.D. First contact with patient: 08:59 Chief Complaint: DEHYDRATION Stated Complaint: DEHYDRATED, NOT EATING MUCH Nursing Triage Summary: pt presents with c/o dehydration recently admitted for dehydration and pneumonia family reports that patient has had a decreased appetite and fluid intake since 01/16/2017 denies nausea, vomiting, or diarrhea decreased urine output and weakness reported by family History of Present Illness The patient is a 81 year old male who presents to the Emergency Room with complaints of worsening loss of appetite starting a few days ago. The patient was recently hospitalized for elevated troponin and pneumonia. As per caregiver , he was given his last dose of antibiotic yesterday. The patient started having a loss of appetite prior to being hospitalized. Since discharge, his lack of appetite has worsened and the patient is now refusing to eat or drink fluids. As per caregiver, the patient has weakness and a decreased urinary output. The patient denies nausea, vomiting, abdominal pain, or any other complaints. Source of History: patient, caregiver Onset: a few days ago Position: other (global) Quality: other (loss of appetite) Timing: worsening Associated Symptoms: No abdominal pain, No nausea, No vomiting Review of Systems See HPI for pertinent positives & negatives. A total of 10 systems reviewed and were otherwise negative. 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 Family History Depression FH: heart disease Hypertension Social History Smoking Status: Never Smoker Alcohol Use: none Drug Use: none Marital Status: single Occupation Status: retired, disabled Current/Historical Medications Scheduled Aspirin (Aspirin Ec), 81 MG PO QAM Atorvastatin (Lipitor), 40 MG PO QAM Clopidogrel (Plavix), 75 MG PO QAM Ferrous Sulfate (Feosol), 1 TAB PO BIDM Furosemide (Furosemide), 20 MG PO QAM Metoprolol Succ (Toprol Xl) (Toprol-Xl ), 100 MG PO DAILY Scheduled PRN Insulin Glargine (Lantus), 8 UNITS SC QAM PRN for PRN Insulin Glargine (Lantus), 13 UNIT SC QPM PRN for PRN Allergies Coded Allergies: No Known Allergies (Verified , 02/08/17) Physical Exam Vital Signs Date Time Temp Pulse Resp B/P Pulse Ox O2 Delivery O2 Flow Rate FiO2 02/08/17 10:50 100 Room Air 02/08/17 10:23 63 16 88/63 100 Room Air 02/08/17 10:23 100 Room Air 02/08/17 10:23 100 Room Air 02/08/17 09:43 70 16 90/74 88 98/78 02/08/17 09:34 69 02/08/17 08:33 91 20 97/63 97 Room Air Physical Exam GENERAL: Patient is a healthy-appearing well-nourished HEAD: Normocephalic atraumatic EYES: Ocular movements intact pupils equal and react to light OROPHARYNX mucous membranes are moist no exudates present no erythema or edema present NECK: Supple no nuchal rigidity CHEST: Good equal expansion LUNGS: Clear and equal to auscultation CARDIAC: Normal S1 and S2 ABDOMEN: Soft nontender no guarding BACK: No CVA tenderness EXTREMITIES: No pain upon palpation normal muscle strength in all groups no clubbing cyanosis or edema NEURO: Patient is following commands appropriately. Alert but confused to place and time. Cranial Nerves 2-12 grossly intact Medical Decision & Procedures ER Provider Diagnostic Interpretation: X-ray results as stated below per interpretation by me and the radiologist: CHEST ONE VIEW PORTABLE CLINICAL HISTORY: Acute change in mental status COMPARISON STUDY: 01/30/2017 FINDINGS: The heart remains enlarged. There is a left subclavian dual-chamber pacer/defibrillator present. There are bilateral pleural effusions with associated bibasal airspace opacities. There is mild central pulmonary vascular congestion. IMPRESSION: Persistent cardiomegaly, bilateral pleural effusions, and bibasilar airspace opacities. Electronically signed by: Julian Miranda M.D. 02/08/2017 10:02 AM Dictated Date/Time: 02/08/2017 10:01 AM Laboratory Results Test 02/08/17 09:10 02/08/17 09:30 Immature Granulocyte % (Auto) 0.1 % White Blood Count 8.89 K/uL (4.8-10.8) Red Blood Count 4.21 M/uL (4.7-6.1) Hemoglobin 14.6 g/dL (14.0-18.0) Hematocrit 41.6 % (42-52) Mean Corpuscular Volume 98.8 fL (80-100) Mean Corpuscular Hemoglobin 34.7 pg (25-34) Mean Corpuscular Hemoglobin Concent 35.1 g/dl (32-36) Platelet Count 107 K/uL (130-400) Mean Platelet Volume 12.1 fL (7.4-10.4) Neutrophils (%) (Auto) 86.0 % Lymphocytes (%) (Auto) 5.5 % Monocytes (%) (Auto) 8.0 % Eosinophils (%) (Auto) 0.3 % Basophils (%) (Auto) 0.1 % Neutrophils # (Auto) 7.64 K/uL (1.4-6.5) Lymphocytes # (Auto) 0.49 K/uL (1.2-3.4) Monocytes # (Auto) 0.71 K/uL (0.11-0.59) Eosinophils # (Auto) 0.03 K/uL (0-0.5) Basophils # (Auto) 0.01 K/uL (0-0.2) Immature Granulocyte # (Auto) 0.01 K/uL (0.00-0.02) Echinocytes 1+ Direct Bilirubin 0.7 mg/dl (0-0.2) Total Creatine Kinase 86 U/L (39-308) Pro-B-Type Natriuretic Peptide > 97604 pg/ml (0-1800) Procalcitonin < 0.05 ng/mL (0-0.5) Thyroid Stimulating Hormone (TSH) 5.010 uIu/ml (0.300-4.500) Influenza Type A (RT-PCR) Neg for Influ A (NEG) Influenza Type A Antigen Neg for Influ A (NEG) Influenza Type B Antigen Neg for Influ B (NEG) Influenza Type B (RT-PCR) Neg for Influ B (NEG) Labs reviewed by ED physician. Medications Administered Medications (Trade) Dose Ordered Sig/Em Route Start Time Stop Time Status Last Admin Dose Admin Sodium Chloride (Nss 500ml) 500 ml @ 999 mls/hr Q31M STAT IV 02/08/17 09:18 02/08/17 09:48 DC 02/08/17 09:41 999 MLS/HR Ceftriaxone Sodium (Rocephin Inj) 1 gm NOW STAT IV 02/08/17 10:16 02/08/17 10:18 DC 02/08/17 11:08 1 GM Levofloxacin (Levaquin / D5W) 750 mg NOW STAT IV 02/08/17 10:16 02/08/17 10:18 DC 02/08/17 11:53 750 MG Vancomycin HCl (Vancomycin 1gm/ 270ml Nss) 1 gm NOW STAT IV 02/08/17 10:16 02/08/17 10:18 DC 02/08/17 12:20 1 GM ECG Indication: other (Loss of appetite) Rate (beats per minute): 63 Rhythm: other (Paced rhythm) Findings: PVC, no acute ischemic change ED Course 0859: Past medical records reviewed. The patient was evaluated in room B04B. A complete history and physical examination was performed. 0918: Sodium Chloride 500 ml @ 999 mls/hr IV 1016: Vancomycin HCl 1 gm IV, Levofloxacin 750 mg IV, Rocephin Inj 1 gm IV 1021: Upon reexamination the patient is resting comfortably. I discussed results and treatment plan with the patient and his caregiver. They verbalize agreement and understanding. I spoke with Dr. Santos from the [facility]. The patient will be evaluated for further management. Medical Decision Differential diagnosis: Etiologies such as metabolic, infection, hypoglycemia, electrolyte abnormalities , cardiac sources, intracerebral event, toxicologic, neurologic, as well as others were entertained. This is a 81-year-old male who presents emergency department complaining of acute altered mental status. The patient does appear to be dehydrated IV was established, patient given normal saline bolus. He has a clear chest x-ray and urine appears to be normal. I did discuss the case with the hospitalist service who agreed to admit the patient. Patient family were in agreement with the treatment plan. Consults Time Called: 1018 Consulting Physician: Dr. Santos from the [facility] Returned Call: [phone] Santos from the [facility]. Impression Primary Impression: Dehydration Scribe Attestation The scribe's documentation has been prepared under my direction and personally reviewed by me in its entirety. I confirm that the note above accurately reflects all work, treatment, procedures, and medical decision making performed by me. Departure Information Dispostion Being Evaluated By Hospitalist Referrals Nini Quick PA-C (PCP) Patient Instructions My [facility]
[2017-02-08] MEDS ORDERED: SODIUM CHLORIDE 0.9% 500ML 500 ML IV STA (09:18)
[2017-02-08 09:54] LABS: CALCIUM 8.8 mg/dl (8.5-10.1); CREATININE 2.1 mg/dl (0.60-1.40); POTASSIUM 3.9 mmol/L (3.5-5.1)
[2017-02-08 09:57] LABS: HEMATOCRIT 41.6 % (42-52); MEAN CELL VOLUME 98.8 fL (80-100); MEAN CORPUSCULAR HEMOGLOBIN 34.7 pg (25-34); MEAN CORPUSCULAR HGB CONC 35.1 g/dl (32-36); MEAN PLATELET VOLUME 12.1 fL (7.4-10.4); PLATELET COUNT 107 K/uL (130-400); RED BLOOD COUNT 4.21 M/uL (4.7-6.1); WHITE BLOOD COUNT 8.89 K/uL (4.8-10.8)
--- NOTE | 2017-02-08 10:04 | DIAGNOSTIC IMAGING REPORT ---
CHEST ONE VIEW PORTABLE CLINICAL HISTORY: Acute change in mental status COMPARISON STUDY: 01/30/2017 FINDINGS: The heart remains enlarged. There is a left subclavian dual-chamber pacer/defibrillator present. There are bilateral pleural effusions with associated bibasal airspace opacities. There is mild central pulmonary vascular congestion. IMPRESSION: Persistent cardiomegaly, bilateral pleural effusions, and bibasilar airspace opacities. Electronically signed by: Julian Miranda M.D. 02/08/2017 10:02 AM Dictated Date/Time: 02/08/2017 10:01 AM
[2017-02-08 10:09] LABS: CKMB/CK RATIO 4.7 (0-3.0); THYROID STIMULATING HORMONE 5.01 uIu/ml (0.300-4.500)
[2017-02-08] MEDS ORDERED: CEFTRIAXONE SOD INJ 1 GM ADDVIAL IV STA (10:16)
[2017-02-08] MEDS ORDERED: LEVAQUIN 750MG / 150ML D5W IV STA (10:16)
[2017-02-08] MEDS ORDERED: VANCOMYCIN 1GM/270ML NSS IV STA (10:16)
[2017-02-08 10:25] LABS: BASO % 0.1 %; BASO ABS # 0.01 K/uL (0-0.2); COMPLETE YES; ECHINOCYTES 1+; EOS % 0.3 %; IG% 0.1 %; LYMPH % 5.5 %; LYMPH ABS # 0.49 K/uL (1.2-3.4)
[2017-02-08] MEDS ORDERED: ALUMINUM/MAGNESIUM/SIMETH (MAALOX MAX) 30 ML UDC PO PRN (11:15)
[2017-02-08] MEDS ORDERED: POLYETHYLENE (MIRALAX) 17 GM PACK PO PRN (11:15)
[2017-02-08] MEDS ORDERED: ONDANSETRON INJ 2 MG/ML 2 ML VIAL IV PRN (11:15)
[2017-02-08] MEDS ORDERED: MAGNESIUM HYDROXIDE SUSP 30 ML UDC PO PRN (11:15)
[2017-02-08] MEDS ORDERED: ALBUT/IPRATROP 3MG/0.5MG NEB 3 ML VIAL INH PRN (11:15)
[2017-02-08] MEDS ORDERED: NITROGLYCERIN 0.4 MG SL PER TAB CHARGE SL PRN (11:15)
[2017-02-08] MEDS ORDERED: HEPARIN SOD 5000 UNIT/0.5 ML CARP ONE (11:39)
[2017-02-08] MEDS ORDERED: HEPARIN 25000 UNIT/500 ML D5W ONE (11:39)
[2017-02-08 12:10] LABS: INFLUENZA A PCR Neg for Influ A (NEG); INFLUENZA B PCR Neg for Influ B (NEG)
--- NOTE | 2017-02-08 12:10 | History and Physical ---
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 Patient was admitted on 01/27/17 due to PNA, CHF, and TRAE. Patient was discharged on 02/01/17 w/ 24-hour caregivers. History came largely from caregiver present. Since discharge, patient has been eating/drinking little to none. On 02/07, patient drank ~2 glasses of water, which was the most he has drank since discharge. He completed his entire course of Levaquin on 02/07. Per caregiver, no fevers/chills , cough, or sputum production. +SOB w/ ambulation- ongoing issue, caregiver attributes it to no eating/drinking. +weakness. According to caregiver, patient has gained 3.5 pounds since yesterday. Patient admits to difficulty w/ urination. Per caregiver, very little urine output over the last 5 days. Patient denies any CP. Limited ROS due to patient's condition. 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 Diabetes mellitus Hypertension PFO CKD, stage III- baseline creatinine 1.6 Surgical hx: History of bowel surgery Family History Depression FH: heart disease Hypertension Social History Smoking Status: Never Smoker Drug Use: none Marital Status: single Housing status: other Occupational Status: retired, disabled Immunizations History of Influenza Vaccine: No History of Tetanus Vaccine?: No History of Pneumococcal: No History of Hepatitis B Vaccine: No Multi-Drug Resistant Organisms History of MDRO: No Allergies Coded Allergies: No Known Allergies (Verified , 02/08/17) Home Medications Scheduled Aspirin (Aspirin Ec), 81 MG PO QAM Atorvastatin (Lipitor), 40 MG PO QAM Clopidogrel (Plavix), 75 MG PO QAM Ferrous Sulfate (Feosol), 1 TAB PO BIDM Furosemide (Furosemide), 20 MG PO QAM Metoprolol Succ (Toprol Xl) (Toprol-Xl ), 100 MG PO DAILY Scheduled PRN Insulin Glargine (Lantus), 8 UNITS SC QAM PRN for PRN Insulin Glargine (Lantus), 13 UNIT SC QPM PRN for PRN Physical Exam Vital Signs Date Time Temp Pulse Resp B/P Pulse Ox O2 Delivery O2 Flow Rate FiO2 02/08/17 10:50 100 Room Air 02/08/17 10:23 63 16 88/63 100 Room Air 02/08/17 10:23 100 Room Air 02/08/17 10:23 100 Room Air 02/08/17 09:43 70 16 90/74 88 98/78 02/08/17 09:34 69 02/08/17 08:33 91 20 97/63 97 Room Air General Appearance: no apparent distress Head: normocephalic, atraumatic Eyes: normal inspection, PERRL ENT: + pertinent finding (Hard of hearing ) Neck: supple, + JVD Respiratory/Chest: no respiratory distress, no accessory muscle use, + decreased breath sounds (bilateral lung bases ), + wheezing (slight expiratory ) Cardiovascular: regular rate, rhythm Abdomen/GI: normal bowel sounds, non tender, soft Back: normal inspection Extremities/Musculoskelatal: no calf tenderness, + swelling (+3 pitting edema of bilateral lower extremities ) Neurologic/Psych: alert Skin: normal color, warm/dry, no rash Diagnostics Laboratory Results Results Past 24 Hours Test 02/08/17 09:10 02/08/17 09:30 Range/Units White Blood Count 8.89 4.8-10.8 K/uL Red Blood Count 4.21 4.7-6.1 M/uL Hemoglobin 14.6 14.0-18.0 g/dL Hematocrit 41.6 42-52 % Mean Corpuscular Volume 98.8 80-100 fL Mean Corpuscular Hemoglobin 34.7 25-34 pg Mean Corpuscular Hemoglobin Concent 35.1 32-36 g/dl Platelet Count 107 130-400 K/uL Mean Platelet Volume 12.1 7.4-10.4 fL Neutrophils (%) (Auto) 86.0 % Lymphocytes (%) (Auto) 5.5 % Monocytes (%) (Auto) 8.0 % Eosinophils (%) (Auto) 0.3 % Basophils (%) (Auto) 0.1 % Neutrophils # (Auto) 7.64 1.4-6.5 K/uL Lymphocytes # (Auto) 0.49 1.2-3.4 K/uL Monocytes # (Auto) 0.71 0.11-0.59 K/uL Eosinophils # (Auto) 0.03 0-0.5 K/uL Basophils # (Auto) 0.01 0-0.2 K/uL RDW Standard Deviation 54.4 36.4-46.3 fL RDW Coefficient of Variation 15.3 11.5-14.5 % Immature Granulocyte % (Auto) 0.1 % Immature Granulocyte # (Auto) 0.01 0.00-0.02 K/uL Echinocytes 1+ Sodium Level 136 136-145 mmol/L Potassium Level 3.9 3.5-5.1 mmol/L Chloride Level 101 98-107 mmol/L Carbon Dioxide Level 25 21-32 mmol/L Anion Gap 10.0 3-11 mmol/L Blood Urea Nitrogen 74 7-18 mg/dl Creatinine 2.10 0.60-1.40 mg/dl Est Creatinine Clear Calc Drug Dose 27.4 ml/min Estimated GFR () 33.7 Estimated GFR (Non- 29.1 BUN/Creatinine Ratio 35.0 10-20 Random Glucose 119 70-99 mg/dl Calcium Level 8.8 8.5-10.1 mg/dl Total Bilirubin 2.5 0.2-1 mg/dl Direct Bilirubin 0.7 0-0.2 mg/dl Aspartate Amino Transf (AST/SGOT) 32 15-37 U/L Alanine Aminotransferase (ALT/SGPT) 122 12-78 U/L Alkaline Phosphatase 124 45-117 U/L Total Creatine Kinase 86 39-308 U/L Creatine Kinase MB 4.0 0.5-3.6 ng/ml Creatine Kinase MB Ratio 4.7 0-3.0 Troponin I 3.610 0-0.045 ng/ml Total Protein 6.7 6.4-8.2 gm/dl Albumin 3.3 3.4-5.0 gm/dl Thyroid Stimulating Hormone (TSH) 5.010 0.300-4.500 uIu/ml Influenza Type A Antigen Neg for Influ A NEG Influenza Type B Antigen Neg for Influ B NEG Microbiology Results 02/08/17 Blood Culture, Received Pending 02/08/17 Blood Culture, Received Pending Diagnostic Radiology CHEST ONE VIEW PORTABLE CLINICAL HISTORY: Acute change in mental status COMPARISON STUDY: 01/30/2017 FINDINGS: The heart remains enlarged. There is a left subclavian dual-chamber pacer/defibrillator present. There are bilateral pleural effusions with associated bibasal airspace opacities. There is mild central pulmonary vascular congestion. IMPRESSION: Persistent cardiomegaly, bilateral pleural effusions, and bibasilar airspace opacities. Electronically signed by: Julian Miranda M.D. 02/08/2017 10:02 AM Dictated Date/Time: 02/08/2017 10:01 AM The status of this report is Signed. Draft = Not yet reviewed or approved by Radiologist. Signed = Reviewed and approved by Radiologist. EKG LUIS HEATHER ID:[id number] 08-FEB-2017 09:32:29 [facility] Atrial-sensed ventricular-paced rhythm with occasional Premature ventricular complexes Abnormal ECG When compared with ECG of 27-JAN-2017 11:08, Previous ECG has undetermined rhythm, needs review 25mm/s 10mm/mV 150Hz 8.0 SP2 12SL 241 REGINE: 13 Referred by: Referred Self Unconfirmed Vent. 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 Rivas- Consult cardiology, appreciate recommendations -- Spoke w/ Dr. Rob on the phone--> will hold PO Lasix pending consult and defer further treatment to Dr. Rivas TRAE on CKD, stage III- baseline cr 1.6: - IV NSS bolus x1 given in ED--> hold on further IVF due to volume overload - PRP on 02/06- cr. of 2.30. Today cr. of 2.10 - Follow PRP - Consult Nephrology, appreciate recommendations Hypotension: - IV NSS x1 bolus given in ED - Continue to monitor - PO Lasix held, holding on IVF at this time due to bilateral LE edema/JVD w/ EF of 21%. Appreciate nephrology/cardiology input Oliguria: - +500 cc on bladder scan in ED--> Place Brumfield - Check U/A T2DM: - Continue Lantus 8 u SC QAM and 13 u SC QPM - BSG ACHS w/ sliding insulin scale - ha1c 02/06/17- 7/0% Elevated LFTs- stable: - Hold Atorvastatin 40 mg PO QAM - Follow CMP - Elevated on last admission 01/27/17 -- Hepatic steatosis. Cholelithiasis. There is nonspecific gallbladder wall thickening which may be related to adjacent hepatocellular disease and/or ascites. There is no convincing sonographic evidence of acute cholecystitis. If there is strong clinical concern for acute cholecystitis then a nuclear hepatobiliary scan should be considered to assess for patency of the cystic duct. Right pleural effusion. Small volume of abdominal ascites. -- HIDA unremarkable hx of PNA on 01/27/17 admission: - Full Levaquin course completed on 02/07 - IV Rocephin, Levaquin, and Vancomycin given in ED x1 dose - Rapid influenza negative, PCR pending - BCx pending - DuoNeb PRN SOB/wheezing - No antibiotic at this time- no s/s of infection at this time, continue to monitor Ischemic CVA: Continue ASA and Plavix Anemia: Continue Ferrous Sulfate DVT prophylaxis: Heparin, RAMAKRISHNA and SCDs Code Status: LEVEL V, DNR Dispo: - From home w/ 24 hour caregivers. Consult school social worker - Likely will need PT/OT consultation once status improves Level of Care Telemetry Advanced Directives Existing Living Will: Yes Existing Power of Special Education Administrator: No Resuscitation Status DO NOT RESUSCITATE VTE Prophylaxis VTE Risk Assessment Done? Y/N: Yes Risk Level: Moderate Given or contraindicated: Unfractionated heparin SQ, T.E.D. Stockings, SCD's Note Attending Admission Note & Attestation: Pt seen/examined, chart reviewed, and care plan d/w KARSTEN Ortiz. I agree w/ the jenkins components of her admission documentation. 81yo male with severe chronic systolic CHF 2nd to ischemic cardiomyopathy with recent admission for pneumonia who presents with failure to thrive, poor oral intake, and dyspnea. At time of ER presentation he was mildly hypotensive. Initial troponin was about 3.5. LFTs - in comparison to last admission - were still mildly elevated. PMH, PSH, allergies, meds, sochx, famhx, ros - reviewed vitals - BPs mildly low, mildly hypothermic, o2 sats high 90s gen - thin, expressive aphasia, but awake/alert neck - JVD present mouth - erythematous palate heart - RRR, s1, s2, 2/6 systolic murmur LLSB lungs - decreased BS both bases abd - soft, NT, no HSM ext - 2-3+ edema b/l, feet cool, pulses 1+ b/l A/P: 1. acute/chronic systolic CHF 2. acute/chronic renal failure (baseline CKD stage 3) 3. thrombocytopenia 4. abnormal LFTs 5. +troponin - unsure if type 1 vs type 2 PR 6. hypothermia 7. failure to thrive 8. mild-moderate protein calorie malnutrition 9. recent pneumonia - appears resolved Cardiology consultation Consider dobutamine with lasix IV daily labs especially BMP heparin infusion, low-dose protocol cycle troponins agree with palliative care consultation would not continue any IV or PO antibiotics at this time time 70 minutes Catarino Harris MD
[2017-02-08 13:22] LABS: URINE APPEARANCE CLEAR (CLEAR); URINE BILIRUBIN NEG (NEG); URINE COLOR YELLOW; URINE EPITHELIAL CELL AUTO 0-5 /lpf (0-5); URINE NITRITE NEG (NEG); URINE SPECIFIC GRAVITY 1.017 (1.000-1.030); UROBILINOGEN NEG (NEG); ZZURINE CULT IF INDIC CATH NO
[2017-02-08 13:45] LABS: MANUAL MICROSCOPIC REQUIRED? NO; REVIEW REQ? NO
[2017-02-08] MEDS ORDERED: GLUCAGON FOR INJ 1 MG VIAL SQ PRN (14:00)
[2017-02-08] MEDS ORDERED: GLUCOSE 10 TABS/TUBE PO PRN (14:00)
[2017-02-08] MEDS ORDERED: DEXTROSE 50% 50 ML SYR IV PRN (14:00)
[2017-02-08] MEDS ORDERED: GLUCOSE 40% GEL 15 GM TUBE PO PRN (14:00)
--- NOTE | 2017-02-08 15:50 | Nephrology Consultation ---
Nephrology Consultation Date & Providers Date of Consultation: Feb 08, 2017. Primary Care Provider: Nini Quick PA-C Referring Provider: Reason for Consultation TRAE/CKD History of Present Illness Mr. Topher Alcocer is a 81-year-old male with chronic kidney disease class III A1. He had a baseline creatinine of 1.4-1.6 mg/dL. CKD attributed to microvascular disease in the setting of a history of diabetes mellitus II and hypertension. Mr. Alcocer has a significant history of ischemic heart disease with a dilated cardiomyopathy and reduced LV systolic function. He was admitted to [facility] earlier this month with acute respiratory failure attributed to pneumonia. This was complicated by acute renal insufficiency attributed to intravascular volume depletion. Furosemide was held during admission. Creatinine peaked at 2.1 mg/dL and improved to 1.9 at the time of hospital discharge. Mr. Alcocer followed up with Dr. Buitrago in the nephrology clinic on 02/06/17. At that time, he continued to complain of failure to thrive. Appetite was very poor and he was suffering from generalized weakness. I spoke with Dr. Buitrago and reviewed clinic notes this afternoon. Laboratory studies at that time showed an increase in serum creatinine to 2.4 mg/dL. Oral fluids were encouraged as well as a reduction in diuretics. Unfortunately, clinical status continued to decline and the patient presented to the ER at [facility] today. Cardiology was consulted. I discussed the case with Dr. Mo today. Mr. Alcocer was seen and evaluated in his hospital room this afternoon. He was breathing comfortably. Medical history was obtained from the EHR. Mr. Alcocer was unfortunately unable to provide much history due to expressive aphasia. Review of systems was also limited. It is noted that the patient has had recent difficulty voiding urine. He was bladder scanned for 500 ml in the ED. Brumfield catheter was placed without difficulty. CXR notable for bibasilar airspace opacities and bilateral pleural effusions. Troponin elevated at 3.5. Metabolic profile notable for a creatinine of 2.1 mg/ dL. Past Medical/Surgical History Medical: -- Chronic kidney disease III, attributed to microvascular disease and nephrosclerosis -- Cardiorenal syndrome -- Dilated ischemic cardiomyopathy -- Systolic CHF -- Mitral regurgitation -- Hypertension -- Diabetes mellitus II -- Dyslipidemia -- History of CVA -- Aphasia Allergies Coded Allergies: No Known Allergies (Verified , 02/08/17) Inpatient Medications Current Inpatient Medications Medications (Trade) Dose Ordered Sig/Em Route Start Time Stop Time Status Last Admin Dose Admin Al Hydrox/Mg Hydrox/Simethicone (Maalox Max Susp) 15 ml Q4H PRN PO 02/08/17 11:15 03/10/17 11:14 Magnesium Hydroxide (Milk Of Magnesia Susp) 30 ml Q12H PRN PO 02/08/17 11:15 03/10/17 11:14 Ondansetron HCl (Zofran Inj) 4 mg Q6H PRN IV 02/08/17 11:15 03/10/17 11:14 Nitroglycerin (Nitrostat Tab) 0.4 mg UD PRN SL 02/08/17 11:15 03/10/17 11:14 Polyethylene (Miralax Powder Packet) 17 gm DAILY PRN PO 02/08/17 11:15 03/10/17 11:14 Aspirin (Ecotrin Tab) 81 mg QAM PO 02/09/17 09:00 03/11/17 08:59 Clopidogrel Bisulfate (plAVix TAB) 75 mg QAM PO 02/09/17 09:00 03/11/17 08:59 Insulin Glargine (Lantus Solostar Pen) 8 unit QAM SC 02/09/17 09:00 03/11/17 08:59 Insulin Glargine (Lantus Solostar Pen) 13 unit QPM SC 02/08/17 21:00 03/10/17 20:59 Metoprolol Succinate (Toprol Xl Tab) 100 mg DAILY PO 02/09/17 09:00 03/11/17 08:59 Future Hold Ferrous Sulfate (Feosol Tab) 1 mg BIDM PO 02/08/17 16:45 03/10/17 17:59 Insulin Aspart (novoLOG ASPART) SLIDING SCALE G... ACHS SC 02/08/17 16:00 03/10/17 15:59 Albuterol/ Ipratropium 3 ml 3 ml Q4R PRN INH 02/08/17 11:15 03/10/17 11:14 Heparin Sodium/ Dextrose (Heparin 25,000 Unit/500ml D5W) 500 ml @ 16 mls/hr Q24H PRN IV 02/08/17 13:30 03/10/17 13:29 Glucose (Glucose 40% Gel) 15-30 GRAMS 15 GRAMS... UD PRN PO 02/08/17 14:00 03/10/17 13:59 Glucose (Glucose Chew Tab) 4-8 Tablets 4 Tabl... UD PRN PO 02/08/17 14:00 03/10/17 13:59 Dextrose (Dextrose 50% 50ML Syringe) 25-50ML OF 50% DW IV FOR... UD PRN IV 02/08/17 14:00 03/10/17 13:59 Glucagon 1 mg 1 mg UD PRN SQ 02/08/17 14:00 03/10/17 13:59 Dobutamine HCl (DOBUTamine / D5W) 250 ml @ 0 mls/hr Q0M PRN IV 02/08/17 14:30 03/10/17 14:29 Family History Depression FH: heart disease Hypertension Social History Smoking Status: Never Smoker Drug Use: none Marital Status: single Housing Status: other Occupation: retired, disabled Review of Systems A complete review of systems was performed. Pertinent positives are noted above. All other systems are negative. Physical Exam Date Time Temp Pulse Resp B/P Pulse Ox O2 Delivery O2 Flow Rate FiO2 02/08/17 13:00 Room Air 02/08/17 13:00 35.4 60 16 94/67 99 Room Air 02/08/17 12:33 75 18 86/57 98 Room Air 02/08/17 12:10 71 02/08/17 11:46 109 12 91/69 100 Room Air 02/08/17 10:50 100 Room Air 02/08/17 10:23 63 16 88/63 100 Room Air 02/08/17 10:23 100 Room Air 02/08/17 10:23 100 Room Air 02/08/17 09:43 70 16 90/74 88 98/78 02/08/17 09:34 69 02/08/17 08:33 91 20 97/63 97 Room Air General Appearance: + thin, + pertinent finding (frail, no acute distress) Head: atraumatic, + pertinent finding (atrophy and temporal wasting noted) Eyes: normal inspection, sclerae normal ENT: normal ENT inspection, + pertinent finding (oral mucosa slightly dry) Neck: supple, + JVD (10 cm) Respiratory/Chest: lungs clear, no respiratory distress, no accessory muscle use, + decreased breath sounds Cardiovascular: regular rate, rhythm, no gallop, + systolic murmur Abdomen/GI: non tender, soft Genitourinary - Male: + pertinent finding (Brumfield draining concentrated yellow urine) Extremities/Musculoskelatal: + pertinent finding (normal capillary refill, distal cyanosis, +2 pitting edema and dependent edema) Neurologic/Psych: alert Skin: normal color Laboratory Results Last 24 Hours Test 02/08/17 09:10 02/08/17 09:30 02/08/17 11:55 02/08/17 13:10 White Blood Count 8.89 K/uL Red Blood Count 4.21 M/uL Hemoglobin 14.6 g/dL Hematocrit 41.6 % Mean Corpuscular Volume 98.8 fL Mean Corpuscular Hemoglobin 34.7 pg Mean Corpuscular Hemoglobin Concent 35.1 g/dl Platelet Count 107 K/uL Mean Platelet Volume 12.1 fL Neutrophils (%) (Auto) 86.0 % Lymphocytes (%) (Auto) 5.5 % Monocytes (%) (Auto) 8.0 % Eosinophils (%) (Auto) 0.3 % Basophils (%) (Auto) 0.1 % Neutrophils # (Auto) 7.64 K/uL Lymphocytes # (Auto) 0.49 K/uL Monocytes # (Auto) 0.71 K/uL Eosinophils # (Auto) 0.03 K/uL Basophils # (Auto) 0.01 K/uL RDW Standard Deviation 54.4 fL RDW Coefficient of Variation 15.3 % Immature Granulocyte % (Auto) 0.1 % Immature Granulocyte # (Auto) 0.01 K/uL Echinocytes 1+ Sodium Level 136 mmol/L Potassium Level 3.9 mmol/L Chloride Level 101 mmol/L Carbon Dioxide Level 25 mmol/L Anion Gap 10.0 mmol/L Blood Urea Nitrogen 74 mg/dl Creatinine 2.10 mg/dl Est Creatinine Clear Calc Drug Dose 27.4 ml/min Estimated GFR () 33.7 Estimated GFR (Non- 29.1 BUN/Creatinine Ratio 35.0 Random Glucose 119 mg/dl Calcium Level 8.8 mg/dl Total Bilirubin 2.5 mg/dl Direct Bilirubin 0.7 mg/dl Aspartate Amino Transf (AST/SGOT) 32 U/L Alanine Aminotransferase (ALT/SGPT) 122 U/L Alkaline Phosphatase 124 U/L Total Creatine Kinase 86 U/L Creatine Kinase MB 4.0 ng/ml Creatine Kinase MB Ratio 4.7 Troponin I 3.610 ng/ml Pro-B-Type Natriuretic Peptide > 70511 pg/ml Total Protein 6.7 gm/dl Albumin 3.3 gm/dl Procalcitonin < 0.05 ng/mL Thyroid Stimulating Hormone (TSH) 5.010 uIu/ml Influenza Type A (RT-PCR) Neg for Influ A Influenza Type A Antigen Neg for Influ A Influenza Type B Antigen Neg for Influ B Influenza Type B (RT-PCR) Neg for Influ B Urine Color YELLOW Urine Appearance CLEAR Urine pH 5.0 Urine Specific [place] 1.017 Urine Protein NEG Urine Glucose (UA) NEG Urine Ketones NEG Urine Occult Blood 2+ Urine Nitrite NEG Urine Bilirubin NEG Urine Urobilinogen NEG Urine Leukocyte Esterase NEG Urine WBC (Auto) 1-5 /hpf Urine RBC (Auto) 5-10 /hpf Urine Hyaline Casts (Auto) 1-5 /lpf Urine Epithelial Cells (Auto) 0-5 /lpf Urine Bacteria (Auto) NEG Bedside Glucose 124 mg/dl Test 02/08/17 13:52 Impression (1) Acute renal insufficiency (2) CKD (chronic kidney disease) stage 3, GFR 30-59 ml/min (3) Ischemic cardiomyopathy (4) Acute on chronic systolic heart failure (5) Cardiorenal syndrome (6) Elevated troponin Topher is a 81-year-old male with chronic kidney disease III A1 attributed to diabetes mellitus and hypertension. He has an advanced ischemic cardiomyopathy and unfortunate recent decline in health overall. He was admitted to [facility] earlier this month with pneumonia complicated by acute on chronic renal failure. He presented to the emergency department today with weakness, concern for mental status changes, concern for urinary retention and anorexia. He has evidence of increasing hypervolemia despite decreased intravascular volume consistent with acute on chronic heart failure. He has acute renal failure most consistent with cardiorenal syndrome. Overall, creatinine has been fairly stable for the past couple of weeks. Based on urine output through his Brumfield catheter, he is non oliguric. Metabolic profile is otherwise appropriate. Medications are appropriately dosed for renal function. He is oxygenating and not currently significantly dyspneic. He did not endorse any current chest pain. Dobutamine gtt ordered. He has not been on ERASMO/ARB since prior history of TRAE. He received a liter of NS in the ED for hypotension. Relative hypotension persists. Recommendations -- Check renal US -- Obtain UA/micro and random urine sodium -- Brumfield to gravity -- Document I/O's -- Repeat metabolic profile tomorrow AM -- Encourage slightly negative fluid balance, furosemide 40 mg IV can be given to encourage UOP -- Avoid additional IVF; suggest furosemide (40 mg IV) as needed to encourage a slightly negative fluid balance
--- NOTE | 2017-02-08 16:05 | CARDIOLOGY CONSULTATION ---
DATE OF CONSULTATION: 02/08/2017 DATE OF CONSULTATION: 02/08/2017. TIME: 15:06 p.m. CONSULTING PHYSICIAN: Dr. Chappell. REASON FOR CONSULTATION: Elevated troponin. HISTORY OF PRESENT ILLNESS: Mr. 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 He also has chronic kidney disease. The following history was limited from the patient himself due to his speech deficits from prior stroke. Much of the history was obtained by his tour director, Jackeline Twanjudy, who is his power of commercial litigation attorney and also lives with him and watches after him. She was contacted personally via telephone. He was last hospitalized on 01/31/2017 when he was found to be hypovolemic after doubling his Lasix which reported at that time by Jackeline was taking 20 mg daily, increased to 40 mg for 3 days due to increased weight and shortness of breath. Today, she confirms that it was actually 40 mg daily, and then took 80 mg for 3 days. Nonetheless, his oral intake had declined significantly and he became hypovolemic. He was hospitalized and gently hydrated and discharged with improvement of his renal function. He was discharged home on 20 mg of Lasix daily. Earlier this week, he was seen by nephrology, Dr. Buitrago and instructed to take additional 80 mg of Lasix, as per Jackeline's discussion via telephone today. That particular day, a couple days ago, he took 100 mg of Lasix. Despite this, he has not had much urine output home at all and he noticed that he was complaining that he was not able to urinate. Outpatient labs demonstrated worsening creatinine level from 1.9 on 02/01/2017 to 2.3 on 02/06/2017. He was instructed to hold all Lasix at that point. He held his Lasix yesterday but continued to decline. He gained 3.5 pounds overnight. His legs are quite edematous and he appeared to have dyspnea with exertion according to Jackeline's observation. He did not indicate to her any chest pain, fevers, syncope, near syncope, palpitations, bleeding issues or any other symptoms other than his urination issues. She visually observed him to be dyspneic appearing. She states that he has been repeating the word , done and also mentioned going home. These were not typical words for him to speak as his speech is quite limited due to his aphasia. She informed me that she was thinking that he may not want to go on living at this point. She plans on reviewing his living will later today when she returns home from work. Jackeline states that he has not been eating or drinking. He did drink 2 glasses of water yesterday which has been more than most days. REVIEW OF SYSTEMS: As above and otherwise unobtainable due to patient's aphasic state. We did attempt communication today verbally and also with a note pad. He appeared to indicate shortness of breath and chest pain, but it was difficult to understand as he repetitively pointed to the same spot on the piece of paper. PAST MEDICAL HISTORY: 1. Systolic CHF. 2. CAD. 3. Ischemic cardiomyopathy. 4. Left bundle branch block. 5. Mitral regurgitation. 6. Biventricular ICD. 7. Diabetes. 8. Chronic kidney disease. 9. Dyslipidemia. 10. History of hypertension; however, has been hypotensive more recently. 11. Stroke with expressive aphasia. HOME MEDICATIONS: Include Lasix 20 mg daily, aspirin 81 mg daily, Plavix 75 mg daily, Lipitor 40 mg daily, metoprolol succinate 100 mg daily. INPATIENT MEDICATIONS: Include aspirin 81 mg daily, Plavix 75 mg daily, heparin drip per protocol, metoprolol succinate 100 mg daily. ALLERGIES: No known drug allergies. SOCIAL HISTORY: Denies tobacco or drug abuse. He is a . He lives with his tour director, Jackeline Davis, who is his legally appointed durable healthcare power of commercial litigation attorney. Her , Heather, also lives with them. FAMILY HISTORY: No known premature. PHYSICAL EXAMINATION: VITAL SIGNS: Temperature 35.4 degrees rectally, heart rate 60 beats per minute, respiration rate 16, blood pressure 94/67 mmHg. His blood pressure has been intermittently in the 80s from a systolic standpoint. Oxygen saturation 99% on room air. Weight 67.8 kg. GENERAL: No acute distress. He is alert. HEAD, EYES, EARS, NOSE, AND THROAT: Anicteric sclerae. NECK: No appreciable bruits. Elevated JVD. Normal carotid upstrokes bilaterally. CARDIAC EXAMINATION: PMI was nonpalpable. There was no ventricular heave. Regular, normal S1, S2. A 2/6 holosystolic murmur best heard at the apex. No rubs or gallops. LUNGS: Clear to auscultation on anterior auscultation. No wheezes, rales, or rhonchi noted. ABDOMEN: Soft, nontender, nondistended, normoactive bowel sounds, no bruits noted. EXTREMITIES: 3+ bilateral lower extremity pitting edema. No palpable cords. His fingernail beds were cyanotic. 1+ radial pulses bilaterally. LABORATORY DATA: White blood cell count is 8.89, hemoglobin 14.6, platelets 107, Sodium 136, potassium 3.9, BUN 74, creatinine 2.1, AST 32, ALT 122, troponin 3.61. ProBNP greater than 35,000. TSH 5.01. Procalcitonin undetectable. Chest x-ray image personally reviewed. Bibasilar airspace opacities noted. Radiology reports persistent cardiomegaly, bilateral pleural effusion and bibasilar airspace opacities. ECG: Personally reviewed demonstrating sinus rhythm with atrial sensing and ventricular pacing. There is also intermittent electronic atrial pacing. PVC also noted. ASSESSMENT AND PLAN: 1. Acute on chronic systolic congestive heart failure: He appears to be decompensating from a cardiac standpoint. It is worrisome that he has significantly reduced low cardiac output and not perfusing end organs sufficiently. Poor prognosis. This was discussed with Jackeline his tour director and power of commercial litigation attorney. Aggressive/invasive measures are not wished for at this time as he has expressed this in the office and to her before. Consideration for inotropic support, which was discussed. She is agreeable to this for now. Dobutamine 3 mcg per kilogram per minute ordered. Overall, he has had failure to thrive and continues to have this issue going forward. Palliative care consult recommended. Per our discussion today, there was concern that he may not want aggressive measures done at this time. However, his language barrier is significant. Jackeline will continue to think about this while she finds his living will at home after he returns from work. He does appear hypervolemic. Will first start with inotropic support. Consideration for diuretics can be made after receiving inotropes for some time if he does not start to diurese. He does not appear to be in respiratory distress whatsoever at this time. 2. Ischemic cardiomyopathy: LV systolic function has been severely reduced. Holding off on echocardiogram at this time as it will not likely tire changer aircraft and there is a consideration for palliative care/hospice. If it appears to potentially tire changer aircraft going forward, it may be useful, but at this time, would not likely change what we do. 3. Non-ST elevation myocardial infarction: He does not appear to be presenting with acute coronary syndrome. He did not wish for aggressive invasive measures in the past and Jackeline agrees that this would not be in his best interest at this time. He is on antiplatelet therapy and anticoagulation has been initiated by primary service. Beta michael will be on hold secondary to hypotension. Can continue statin therapy if continuing to treat more aggressively. 4. Ischemic cardiomyopathy: Holding beta michael for now due to hypotension. ERASMO inhibitor has been discontinued in the past secondary to symptomatic hypotension. He also developed hyperkalemia with lisinopril doses greater than 5 mg. He has ICD in place for primary prevention. 5. Acute on chronic renal insufficiency: Likely secondary to poor cardiac output and perfusion overall. Dobutamine ordered as above. 6. Hypotension: Holding beta michael. Inotropic support initiated which may improve blood pressure. 7. Disposition: Poor prognosis. He continues to lose weight and has not been eating or drinking at home sufficiently. This was discussed in detail with Jackeline. Suggested palliative care consult. She will continue to think about the overall plan going forward. He did express some interest in taking him home at some point. She has indicated that she believes that he does not want to go on living like this; however, with his expressive aphasia, she wants to be sure that she is doing the right thing for him and therefore would like to take some time to think about it, which is a very reasonable approach. I will be away from the hospital for the next 2 days. Please call the on-call ferry pilot from [facility] for any questions or concerns. If she would like to continue with dobutamine over the weekend, can increase to 5 mcg per kilogram per minute if he does not appear to be making much progress. She was made aware that dobutamine will not fix any problem, but may help improve his symptoms and overall perfusion for a short period of time. Plan of care discussed with Dr. Chappell of the hospitalist service. Highly complex medical issues. Thank you for allowing me to participate in care of Mr. Alcocer.
--- NOTE | 2017-02-08 16:10 | DIAGNOSTIC IMAGING REPORT ---
ULTRASOUND KIDNEYS AND BLADDER CLINICAL HISTORY: Acute renal insufficiency. COMPARISON STUDY: Right upper quadrant ultrasound dated 01/27/2017. TECHNIQUE: Real-time, grayscale, and color flow sonography of the kidneys and bladder is performed. Images are reviewed in the transverse and longitudinal planes. FINDINGS: Kidneys: The kidneys demonstrate mild cortical atrophy and increased cortical echotexture. The right kidney measures 10.0 x 5.1 x 5.5 cm and the left kidney measures 11.0 x 5.6 x 5.5 cm. There is no hydronephrosis. No shadowing renal calculi are identified. There are numerous bilateral renal cysts measuring up to 4.8 cm. There is no sonographic evidence of solid renal mass lesion. No perinephric fluid is identified. Bladder: The bladder is decompressed and a Brumfield catheter and is not well assessed. There is a small volume of pelvic ascites. IMPRESSION: 1. The kidneys demonstrate mild cortical atrophy and increased cortical echotexture suggesting medical renal disease. 2. There is no hydronephrosis. 3. There are numerous bilateral renal cysts. 4. The bladder was decompressed around a Brumfield catheter and is not well evaluated. 5. There is trace pelvic ascites. Electronically signed by: Uday Bae M.D. 02/08/2017 4:09 PM Dictated Date/Time: 02/08/2017 4:04 PM
[2017-02-08] MEDS: INSULIN ASPART 100 UNITS/ML 3 ML PEN SC SCH ×2 (16:15→21:00)
--- NOTE | 2017-02-08 16:27 | Palliative Care Consultation ---
Consultation Date of Consultation: Feb 08, 2017. Requesting Physician: Dr. Rivas Attending Physician: Elisabeth Julian PA-C Reason for Consultation: Goals of care History of Present Illness This 81 francia old male patient presented to the ED today with c/o decreased appetite and fluid intake. History obtained from record as patient is aphasic with garbled speech and his caregiver Jackeline is at work. 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 Was in the hospital from -02/01 for elevated troponin, RLL pneumonia, and acute kidney injury. He was discharged home with 10/06 caregivers and no home services. In the ED, BNP >17014 , troponin 3.610, TSH 5.010, CXR showed persistent cardiomegaly, bilateral pleural effusions, and bibasilar airspace opacities. Jackeline Davis is a cargiver and legal guardian who acts as patient's surrogate. Given his overall condition and possible worsening of disease, palliative care consulted to establish goals of care and offer support. I met withe the patient in room 217. He is incredibly difficult to understand and mental status/orientation is not easily assessed. He is able to say yes and no clearly, but again I could not tell if he was fully comprehending my questions. He asked me to write down what I was saying. So I did write and ask about his goals of care, but his responses were not making sense. I asked for permission to speak with his guardian Jackeline and he said yes. I called Jackeline and she stated that she couldn't talk much now because she's at work. She is going to try and find patient's living will. Plan for now is to continue current treatment and reevaluate daily to see if patient is making progress. If he declines, it sounds as though patient will be made comfort care, but that is not confirmed at this time. Goals of care conversation will be continued, but ultimately the patient and Jackeline want the patient to be at home. Past Medical/Surgical History Medical History: as above Hypertension Thyroid disorder CAD s/p RI Pacemaker Social History Smoking Status: Never Smoker History of Alcohol Use: No Drug Use: none Marital Status: single Housing Status: other Occupation Status: retired, disabled Review of Systems Constitutional: + problem reported (patient denied any pain or discomfort) unable to obtain full ROS. Allergies Coded Allergies: No Known Allergies (Verified , 02/08/17) Medications Current Inpatient Medications Medications (Trade) Dose Ordered Sig/Em Route Start Time Stop Time Status Last Admin Dose Admin Al Hydrox/Mg Hydrox/Simethicone (Maalox Max Susp) 15 ml Q4H PRN PO 02/08/17 11:15 03/10/17 11:14 Magnesium Hydroxide (Milk Of Magnesia Susp) 30 ml Q12H PRN PO 02/08/17 11:15 03/10/17 11:14 Ondansetron HCl (Zofran Inj) 4 mg Q6H PRN IV 02/08/17 11:15 03/10/17 11:14 Nitroglycerin (Nitrostat Tab) 0.4 mg UD PRN SL 02/08/17 11:15 03/10/17 11:14 Polyethylene (Miralax Powder Packet) 17 gm DAILY PRN PO 02/08/17 11:15 03/10/17 11:14 Aspirin (Ecotrin Tab) 81 mg QAM PO 02/09/17 09:00 03/11/17 08:59 Clopidogrel Bisulfate (plAVix TAB) 75 mg QAM PO 02/09/17 09:00 03/11/17 08:59 Insulin Glargine (Lantus Solostar Pen) 8 unit QAM SC 02/09/17 09:00 03/11/17 08:59 Insulin Glargine (Lantus Solostar Pen) 13 unit QPM SC 02/08/17 21:00 03/10/17 20:59 Metoprolol Succinate (Toprol Xl Tab) 100 mg DAILY PO 02/09/17 09:00 03/11/17 08:59 Future Hold Ferrous Sulfate (Feosol Tab) 1 mg BIDM PO 02/08/17 16:45 03/10/17 17:59 Insulin Aspart (novoLOG ASPART) SLIDING SCALE G... ACHS SC 02/08/17 16:00 03/10/17 15:59 Albuterol/ Ipratropium 3 ml 3 ml Q4R PRN INH 02/08/17 11:15 03/10/17 11:14 Heparin Sodium/ Dextrose (Heparin 25,000 Unit/500ml D5W) 500 ml @ 16 mls/hr Q24H PRN IV 02/08/17 13:30 03/10/17 13:29 Glucose (Glucose 40% Gel) 15-30 GRAMS 15 GRAMS... UD PRN PO 02/08/17 14:00 03/10/17 13:59 Glucose (Glucose Chew Tab) 4-8 Tablets 4 Tabl... UD PRN PO 02/08/17 14:00 03/10/17 13:59 Dextrose (Dextrose 50% 50ML Syringe) 25-50ML OF 50% DW IV FOR... UD PRN IV 02/08/17 14:00 03/10/17 13:59 Glucagon 1 mg 1 mg UD PRN SQ 02/08/17 14:00 03/10/17 13:59 Dobutamine HCl (DOBUTamine / D5W) 250 ml @ 0 mls/hr Q0M PRN IV 02/08/17 14:30 03/10/17 14:29 Physical Exam Date Time Temp Pulse Resp B/P Pulse Ox O2 Delivery O2 Flow Rate FiO2 02/08/17 15:20 35.3 66 18 91/67 98 Room Air 02/08/17 15:10 35.4 02/08/17 13:00 Room Air 02/08/17 13:00 35.4 60 16 94/67 99 Room Air 02/08/17 12:33 75 18 86/57 98 Room Air 02/08/17 12:10 71 02/08/17 11:46 109 12 91/69 100 Room Air 02/08/17 10:50 100 Room Air 02/08/17 10:23 63 16 88/63 100 Room Air 02/08/17 10:23 100 Room Air 02/08/17 10:23 100 Room Air 02/08/17 09:43 70 16 90/74 88 98/78 02/08/17 09:34 69 02/08/17 08:33 91 20 97/63 97 Room Air General Appearance: no apparent distress, + thin, + pertinent finding ( chronically ill-appearing) Neck: no JVD Respiratory: no respiratory distress, no accessory muscle use, + decreased breath sounds (very diminished air exchange), + wheezing (inspiratory) Cardiovascular: regular rate, rhythm (paced on monitor) Abdomen: normal bowel sounds, non tender, soft Neurologic/Psychiatric: alert, + aphasia Laboratory Results Last 24 Hours Test 02/08/17 09:10 02/08/17 09:30 02/08/17 11:55 02/08/17 13:10 White Blood Count 8.89 K/uL Red Blood Count 4.21 M/uL Hemoglobin 14.6 g/dL Hematocrit 41.6 % Mean Corpuscular Volume 98.8 fL Mean Corpuscular Hemoglobin 34.7 pg Mean Corpuscular Hemoglobin Concent 35.1 g/dl Platelet Count 107 K/uL Mean Platelet Volume 12.1 fL Neutrophils (%) (Auto) 86.0 % Lymphocytes (%) (Auto) 5.5 % Monocytes (%) (Auto) 8.0 % Eosinophils (%) (Auto) 0.3 % Basophils (%) (Auto) 0.1 % Neutrophils # (Auto) 7.64 K/uL Lymphocytes # (Auto) 0.49 K/uL Monocytes # (Auto) 0.71 K/uL Eosinophils # (Auto) 0.03 K/uL Basophils # (Auto) 0.01 K/uL RDW Standard Deviation 54.4 fL RDW Coefficient of Variation 15.3 % Immature Granulocyte % (Auto) 0.1 % Immature Granulocyte # (Auto) 0.01 K/uL Echinocytes 1+ Sodium Level 136 mmol/L Potassium Level 3.9 mmol/L Chloride Level 101 mmol/L Carbon Dioxide Level 25 mmol/L Anion Gap 10.0 mmol/L Blood Urea Nitrogen 74 mg/dl Creatinine 2.10 mg/dl Est Creatinine Clear Calc Drug Dose 27.4 ml/min Estimated GFR () 33.7 Estimated GFR (Non- 29.1 BUN/Creatinine Ratio 35.0 Random Glucose 119 mg/dl Calcium Level 8.8 mg/dl Total Bilirubin 2.5 mg/dl Direct Bilirubin 0.7 mg/dl Aspartate Amino Transf (AST/SGOT) 32 U/L Alanine Aminotransferase (ALT/SGPT) 122 U/L Alkaline Phosphatase 124 U/L Total Creatine Kinase 86 U/L Creatine Kinase MB 4.0 ng/ml Creatine Kinase MB Ratio 4.7 Troponin I 3.610 ng/ml Pro-B-Type Natriuretic Peptide > 87240 pg/ml Total Protein 6.7 gm/dl Albumin 3.3 gm/dl Procalcitonin < 0.05 ng/mL Thyroid Stimulating Hormone (TSH) 5.010 uIu/ml Influenza Type A (RT-PCR) Neg for Influ A Influenza Type A Antigen Neg for Influ A Influenza Type B Antigen Neg for Influ B Influenza Type B (RT-PCR) Neg for Influ B Urine Color YELLOW Urine Appearance CLEAR Urine pH 5.0 Urine Specific [place] 1.017 Urine Protein NEG Urine Glucose (UA) NEG Urine Ketones NEG Urine Occult Blood 2+ Urine Nitrite NEG Urine Bilirubin NEG Urine Urobilinogen NEG Urine Leukocyte Esterase NEG Urine WBC (Auto) 1-5 /hpf Urine RBC (Auto) 5-10 /hpf Urine Hyaline Casts (Auto) 1-5 /lpf Urine Epithelial Cells (Auto) 0-5 /lpf Urine Bacteria (Auto) NEG Bedside Glucose 124 mg/dl Assessment & Plan Problem list: Elevated troponin Ischemic cardiomyopathy with EF 21% TRAE on CKD stage III Hypotension Oliguria Decreased PO intake Elevated LFTs Recent history of pneumonia CVA with residual aphasia and garbled speech Goals of care Palliative care plan: -Continue current medical treatment -DNR/DNI already -Goal is to have patient at home if possible, but I did not get a chance to speak long with Jackeline about other goals of dare and solidify a plan. I gave her my number and would be happy to speak with her over the phone even on the weekend if she'd like. She appreciated the support. Thank you kindly for this consult. I will continue to follow as needed if patient here on Saturday. Please contact me if I can be of any assistance over the weekend. [phone]
[2017-02-08] MEDS: FERROUS SULFATE 325 MG TAB PO SCH (16:45)
[2017-02-08] MEDS ORDERED: FERROUS SULFATE 325 MG TAB PO SCH (16:45)
[2017-02-08 18:23] LABS: PARTIAL THROMBOPLASTIN RATIO 8.6
[2017-02-08 18:24] LABS: URINE APPEARANCE CLEAR (CLEAR); URINE BILIRUBIN NEG (NEG); URINE COLOR YELLOW; URINE EPITHELIAL CELL AUTO >30 /lpf (0-5); URINE NITRITE NEG (NEG); URINE PH 5.5 (4.5-7.5); URINE SPECIFIC GRAVITY 1.018 (1.000-1.030); UROBILINOGEN NEG (NEG)
[2017-02-08 18:31] LABS: MANUAL MICROSCOPIC REQUIRED? NO; REVIEW REQ? YES
[2017-02-08 19:50] LABS: PARTIAL THROMBOPLASTIN RATIO 3.8
[2017-02-08] MEDS: INSULIN GLARGINE SOLOSTAR 100 UNITS/ML 3 ML PEN SC SCH (21:00)
[2017-02-08] MEDS ORDERED: HEPARIN SOD 5000 UNIT/0.5 ML CARP SQ SCH (21:00)
[2017-02-08 21:28] LABS: PARTIAL THROMBOPLASTIN RATIO 1.7
[2017-02-09] MEDS: HEPARIN 25,000 UNIT/500ML D5W 500 ML IV PRN (00:33)
[2017-02-09 03:23] VITALS: BP 92/50; PULSE 70; TEMP 36.9; O2SAT 100
[2017-02-09 04:01] LABS: MEAN CELL VOLUME 96.3 fL (80-100); MEAN CORPUSCULAR HGB CONC 35.3 g/dl (32-36); MEAN PLATELET VOLUME 11.8 fL (7.4-10.4); PLATELET COUNT 76 K/uL (130-400); RED BLOOD COUNT 3.53 M/uL (4.7-6.1); WHITE BLOOD COUNT 7.45 K/uL (4.8-10.8)
[2017-02-09 04:15] LABS: PARTIAL THROMBOPLASTIN RATIO 1.8
[2017-02-09 04:26] LABS: CALCIUM 7.9 mg/dl (8.5-10.1); CREATININE 1.8 mg/dl (0.60-1.40); MAGNESIUM 2.6 mg/dl (1.8-2.4); POTASSIUM 3.8 mmol/L (3.5-5.1)
[2017-02-09] MEDS: INSULIN ASPART 100 UNITS/ML 3 ML PEN SC SCH ×4 (07:00→20:07)
[2017-02-09 08:00] VITALS: BP 99/67; PULSE 69; TEMP 36.3; O2SAT 96
[2017-02-09] MEDS: ASPIRIN 81 MG ECTAB PO SCH (08:15)
[2017-02-09] MEDS: CLOPIDOGREL BISULFATE 75 MG TAB PO SCH (08:16)
[2017-02-09] MEDS: INSULIN GLARGINE SOLOSTAR 100 UNITS/ML 3 ML PEN SC SCH ×2 (08:16→20:08)
[2017-02-09] MEDS: FERROUS SULFATE 325 MG TAB PO SCH ×2 (08:16→16:37)
[2017-02-09] MEDS ORDERED: METOPROLOL SUCC 50MG EXT REL TAB PO SCH (09:00)
--- NOTE | 2017-02-09 09:52 | Nephrology Progress Note ---
Nephrology Progress Note Date of Service Feb 09, 2017. Chief Complaint TRAE/CKD Subjective No acute events overnight. Mr. Alcocer was resting comfortably in bed this morning. He did not endorse chest pain or shortness of breath. He said that he feels cold. Appetite remains poor. Tolerating oral medications. Review of Systems A complete review of systems was performed. This is complicated by expressive aphasia. Pertinent positives are noted above. All other systems are negative. Vital Signs Last 8 Hrs Date Time Temp Pulse Resp B/P Pulse Ox O2 Delivery O2 Flow Rate FiO2 02/09/17 08:00 36.3 69 18 99/67 96 02/09/17 08:00 Room Air 02/09/17 04:00 Room Air 02/09/17 03:23 36.9 70 18 92/50 100 Room Air I & O 24-Hour Column 02/09/17 07:59 Intake Total 1588 ml Output Total 1050 ml Balance 538 ml Last Recorded Weight Weight (Kilograms): 67.900 Physical Exam General Appearance: no apparent distress, + thin (cachectic) Head: normocephalic, atraumatic Eyes: normal inspection, EOMI ENT: normal ENT inspection, + pertinent finding (oral mucosa dry, no oral lesions) Neck: supple, + JVD (to mandible) Respiratory/Chest: lungs clear, no respiratory distress, no accessory muscle use Cardiovascular: regular rate, rhythm, no gallop, + systolic murmur Abdomen/GI: non tender, soft Genitourinary - Male: + pertinent finding ([place] draining cloudy yellow urine) Extremities/Musculoskelatal: normal inspection, + pedal edema Neurologic/Psych: alert Family History Depression FH: heart disease Hypertension Social History Drug Use: none Marital Status: single Housing Status: other Occupation: retired, disabled Laboratory Results Past 24 Hours 02/09/17 03:25 02/09/17 03:25 Test 02/08/17 11:55 02/08/17 13:10 02/08/17 16:10 02/08/17 17:00 Urine Color YELLOW Urine Appearance CLEAR (CLEAR) Urine pH 5.0 (4.5-7.5) Urine Specific [place] 1.017 (1.000-1.030) Urine Protein NEG (NEG) Urine Glucose (UA) NEG (NEG) Urine Ketones NEG (NEG) Urine Occult Blood 2+ (NEG) Urine Nitrite NEG (NEG) Urine Bilirubin NEG (NEG) Urine Urobilinogen NEG (NEG) Urine Leukocyte Esterase NEG (NEG) Urine WBC (Auto) 1-5 /hpf (0-5) Urine RBC (Auto) 5-10 /hpf (0-4) Urine Hyaline Casts (Auto) 1-5 /lpf (0-5) Urine Epithelial Cells (Auto) 0-5 /lpf (0-5) Urine Bacteria (Auto) NEG (NEG) Bedside Glucose 124 mg/dl (70-99) 141 mg/dl (70-99) Creatine Kinase MB Ratio (0-3.0) Test 02/08/17 17:13 02/08/17 17:45 02/08/17 19:19 02/08/17 20:20 Activated Partial Thromboplast Time 225.0 SECONDS (21.0-31.0) 100.0 SECONDS (21.0-31.0) Partial Thromboplastin Ratio 8.6 3.8 Creatine Kinase MB 3.4 ng/ml (0.5-3.6) Troponin I 2.770 ng/ml (0-0.045) Urine Color YELLOW Urine Appearance CLEAR (CLEAR) Urine pH 5.5 (4.5-7.5) Urine Specific [place] 1.018 (1.000-1.030) Urine Protein NEG (NEG) Urine Glucose (UA) NEG (NEG) Urine Ketones NEG (NEG) Urine Occult Blood 3+ (NEG) Urine Nitrite NEG (NEG) Urine Bilirubin NEG (NEG) Urine Urobilinogen NEG (NEG) Urine Leukocyte Esterase MODERATE (NEG) Urine WBC (Auto) 10-30 /hpf (0-5) Urine RBC (Auto) >30 /hpf (0-4) Urine Hyaline Casts (Auto) 1-5 /lpf (0-5) Urine Epithelial Cells (Auto) >30 /lpf (0-5) Urine Bacteria (Auto) NEG (NEG) Urine Renal Epithelial Cells 0-5 /lpf (0-5) Urine Random Sodium 7 mEq/L Bedside Glucose 93 mg/dl (70-99) Test 02/08/17 21:13 02/09/17 03:25 02/09/17 06:27 Activated Partial Thromboplast Time 44.4 SECONDS (21.0-31.0) 47.6 SECONDS (21.0-31.0) Partial Thromboplastin Ratio 1.7 1.8 Red Blood Count 3.53 M/uL (4.7-6.1) Mean Corpuscular Volume 96.3 fL (80-100) Mean Corpuscular Hemoglobin 34.0 pg (25-34) Mean Corpuscular Hemoglobin Concent 35.3 g/dl (32-36) RDW Standard Deviation 52.3 fL (36.4-46.3) RDW Coefficient of Variation 15.1 % (11.5-14.5) Mean Platelet Volume 11.8 fL (7.4-10.4) Anion Gap 9.0 mmol/L (3-11) Est Creatinine Clear Calc Drug Dose 31.9 ml/min Estimated GFR () 40.6 Estimated GFR (Non- 35.0 BUN/Creatinine Ratio 35.0 (10-20) Calcium Level 7.9 mg/dl (8.5-10.1) Magnesium Level 2.6 mg/dl (1.8-2.4) Total Bilirubin 2.0 mg/dl (0.2-1) Aspartate Amino Transf (AST/SGOT) 23 U/L (15-37) Alanine Aminotransferase (ALT/SGPT) 84 U/L (12-78) Alkaline Phosphatase 86 U/L (45-117) Total Protein 5.2 gm/dl (6.4-8.2) Albumin 2.6 gm/dl (3.4-5.0) Globulin 2.6 gm/dl (2.5-4.0) Albumin/Globulin Ratio 1.0 (0.9-2) Bedside Glucose 90 mg/dl (70-99) Allergies Coded Allergies: No Known Allergies (Verified , 02/08/17) Medications Current Inpatient Medications Medications (Trade) Dose Ordered Sig/Em Route Start Time Stop Time Status Last Admin Dose Admin Al Hydrox/Mg Hydrox/Simethicone (Maalox Max Susp) 15 ml Q4H PRN PO 02/08/17 11:15 03/10/17 11:14 Magnesium Hydroxide (Milk Of Magnesia Susp) 30 ml Q12H PRN PO 02/08/17 11:15 03/10/17 11:14 Ondansetron HCl (Zofran Inj) 4 mg Q6H PRN IV 02/08/17 11:15 03/10/17 11:14 Nitroglycerin (Nitrostat Tab) 0.4 mg UD PRN SL 02/08/17 11:15 03/10/17 11:14 Polyethylene (Miralax Powder Packet) 17 gm DAILY PRN PO 02/08/17 11:15 03/10/17 11:14 Aspirin (Ecotrin Tab) 81 mg QAM PO 02/09/17 09:00 03/11/17 08:59 02/09/17 08:15 81 MG Clopidogrel Bisulfate (plAVix TAB) 75 mg QAM PO 02/09/17 09:00 03/11/17 08:59 02/09/17 08:16 75 MG Insulin Glargine (Lantus Solostar Pen) 8 unit QAM SC 02/09/17 09:00 03/11/17 08:59 02/09/17 08:16 8 UNIT Insulin Glargine (Lantus Solostar Pen) 13 unit QPM SC 02/08/17 21:00 03/10/17 20:59 Metoprolol Succinate (Toprol Xl Tab) 100 mg DAILY PO 02/09/17 09:00 03/11/17 08:59 Future Hold Insulin Aspart (novoLOG ASPART) SLIDING SCALE G... ACHS SC 02/08/17 16:00 03/10/17 15:59 Albuterol/ Ipratropium 3 ml 3 ml Q4R PRN INH 02/08/17 11:15 03/10/17 11:14 Heparin Sodium/ Dextrose (Heparin 25,000 Unit/500ml D5W) 500 ml @ 12 mls/hr Q24H PRN IV 02/08/17 13:30 03/10/17 13:29 02/09/17 00:33 12 MLS/HR Glucose (Glucose 40% Gel) 15-30 GRAMS 15 GRAMS... UD PRN PO 02/08/17 14:00 03/10/17 13:59 Glucose (Glucose Chew Tab) 4-8 Tablets 4 Tabl... UD PRN PO 02/08/17 14:00 03/10/17 13:59 Dextrose (Dextrose 50% 50ML Syringe) 25-50ML OF 50% DW IV FOR... UD PRN IV 02/08/17 14:00 03/10/17 13:59 Glucagon 1 mg 1 mg UD PRN SQ 02/08/17 14:00 03/10/17 13:59 Dobutamine HCl (DOBUTamine / D5W) 250 ml @ 0 mls/hr Q0M PRN IV 02/08/17 14:30 03/10/17 14:29 Ferrous Sulfate (Feosol Tab) 325 mg BIDM PO 02/08/17 16:45 03/10/17 16:44 02/09/17 08:16 325 MG Impression (1) Acute renal insufficiency (2) CKD (chronic kidney disease) stage 3, GFR 30-59 ml/min (3) Ischemic cardiomyopathy (4) Acute on chronic systolic heart failure (5) Cardiorenal syndrome (6) Elevated troponin Topher is a 81-year-old male with chronic kidney disease III A1 attributed to diabetes mellitus and hypertension. He has an advanced ischemic cardiomyopathy and unfortunate recent decline in health. He was admitted to [facility] earlier this month with pneumonia complicated by acute on chronic renal failure. He presented to the emergency department 02/08/17 with weakness, mental status changes, concern for urinary retention and anorexia. He has evidence of increasing hypervolemia despite decreased effective arterial volume consistent with acute on chronic heart failure. He has acute renal failure most consistent with cardiorenal syndrome. Creatinine showing evidence of improvement in renal function with dobutamine gtt. Overall, creatinine has been fairly stable for the past couple of weeks. He is non oliguric. Metabolic profile is otherwise appropriate. Medications are appropriately dosed for renal function. He is oxygenating and not currently significantly dyspneic. He did not endorse any current chest pain. He has not been on ERASMO/ ARB since prior history of TRAE. He received a liter of NS in the ED for hypotension. Today, I/O net positive 600 ml. Urine sodium low (7). Persistent evidence of predominately R heart failure on exam. Labs notable for acute on chronic renal failure with increased liver enzymes suggestive of CHF/congestive hepatopathy. Suggest adding furosemide to encourage slightly negative fluid balance; 40 mg IV this morning. Renal ultrasound shows cortical atrophy and cyst formation consistent with CKD. There were no acute findings. Troponin trending down. Case reviewed with cardiology this morning. Recommendations -- Furosemide 40 mg IV this AM -- [place]field to gravity -- Document I/O's -- Repeat metabolic profile tomorrow AM -- Continue dobutamine gtt per cardiology
[2017-02-09] MEDS ORDERED: FUROSEMIDE INJ 40 MG in SYRINGE 0 ML IV ONE (10:00)
[2017-02-09 12:12] VITALS: BP 100/69; PULSE 73; TEMP 36.4; O2SAT 100
[2017-02-09 15:47] VITALS: BP 94/60; PULSE 80; TEMP 36.7; O2SAT 100
[2017-02-09 20:12] VITALS: BP 107/58; PULSE 79; TEMP 36.4; O2SAT 100
--- NOTE | 2017-02-09 22:12 | Progress Note ---
Subjective Date of Service: Feb 09, 2017. Subjective Pt evaluation today including: conversation w/ patient (not much yes or no ), physical exam, chart review, lab review, review of studies, review of inpatient medication list Voiding: brown catheter in place Pt is seen and examined. Pt denies any CP, SOB, Nausea , vomiting and diarrhea. Pt was sleeping comfortably in bed this morning. Pt feels cold and want blanket all over him. Appetite remains poor. Tolerating oral medications. Problem List Medical Problems: (1) Acute kidney injury Status: Acute (2) Elevated liver function tests Status: Acute (3) Elevated troponin Status: Acute (4) Febrile Status: Acute (5) Hyperglycemia Status: Acute (6) Hypokalemia Status: Acute (7) Near syncope Status: Acute (8) Weakness Status: Acute Review of Systems All Other Systems: Reviewed and Negative Objective Vital Signs Date Time Temp Pulse Resp B/P Pulse Ox O2 Delivery O2 Flow Rate FiO2 02/09/17 20:12 36.4 79 20 107/58 100 Room Air 02/09/17 20:00 Room Air 02/09/17 16:00 Room Air 02/09/17 15:47 36.7 80 16 94/60 100 Room Air 02/09/17 12:12 36.4 73 16 100/69 100 Room Air 02/09/17 12:00 Room Air 02/09/17 08:00 36.3 69 18 99/67 96 02/09/17 08:00 Room Air 02/09/17 04:00 Room Air 02/09/17 03:23 36.9 70 18 92/50 100 Room Air 02/08/17 23:59 Room Air 02/08/17 23:13 36.7 66 18 83/51 100 Room Air Physical Exam Comments: GENERAL: No acute distress. He is alert. HEAD, EYES, EARS, NOSE, AND THROAT: Anicteric sclerae. NECK: No appreciable bruits. Elevated JVD. Normal carotid upstrokes bilaterally. CARDIAC EXAMINATION: PMI was nonpalpable. There was no ventricular heave. Regular, normal S1, S2. A 2/6 holosystolic murmur best heard at the apex. No rubs or gallops. LUNGS: Clear to auscultation on anterior auscultation. No wheezes, rales, or rhonchi noted. ABDOMEN: Soft, nontender, nondistended, normoactive bowel sounds, no bruits noted. EXTREMITIES: 3+ bilateral lower extremity pitting edema. No palpable cords. His fingernail beds were cyanotic. 1+ radial pulses bilaterally. Laboratory Results Last 24 Hours Test 02/09/17 03:25 02/09/17 06:27 02/09/17 11:27 02/09/17 16:03 White Blood Count 7.45 K/uL Red Blood Count 3.53 M/uL Hemoglobin 12.0 g/dL Hematocrit 34.0 % Mean Corpuscular Volume 96.3 fL Mean Corpuscular Hemoglobin 34.0 pg Mean Corpuscular Hemoglobin Concent 35.3 g/dl RDW Standard Deviation 52.3 fL RDW Coefficient of Variation 15.1 % Platelet Count 76 K/uL Mean Platelet Volume 11.8 fL Activated Partial Thromboplast Time 47.6 SECONDS Partial Thromboplastin Ratio 1.8 Sodium Level 138 mmol/L Potassium Level 3.8 mmol/L Chloride Level 104 mmol/L Carbon Dioxide Level 25 mmol/L Anion Gap 9.0 mmol/L Blood Urea Nitrogen 63 mg/dl Creatinine 1.80 mg/dl Est Creatinine Clear Calc Drug Dose 31.9 ml/min Estimated GFR () 40.6 Estimated GFR (Non- 35.0 BUN/Creatinine Ratio 35.0 Random Glucose 77 mg/dl Calcium Level 7.9 mg/dl Magnesium Level 2.6 mg/dl Total Bilirubin 2.0 mg/dl Aspartate Amino Transf (AST/SGOT) 23 U/L Alanine Aminotransferase (ALT/SGPT) 84 U/L Alkaline Phosphatase 86 U/L Total Protein 5.2 gm/dl Albumin 2.6 gm/dl Globulin 2.6 gm/dl Albumin/Globulin Ratio 1.0 Bedside Glucose 90 mg/dl 105 mg/dl 135 mg/dl Test 02/09/17 20:06 Bedside Glucose 116 mg/dl Assessment and Plan 81 y/o male, with PMHx of CAD s/p [place], 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 1. Elevated trop/CAD s/p [place], ischemia cardiomyopathy w/ EF of 21%/systolic HF: - Continue tele for cardiac monitoring - Trend cardiac enzymes- trop initial 3.610 trended downward to 2.77, Continue aspirin, statin and Hold BB secondary to hypotension - CXR- Persistent cardiomegaly, bilateral pleural effusions, and bibasilar airspace opacities 2. Acute on chronic systolic congestive heart failure: - Decompensating from a cardiac standpoint as per cardiology. - Significantly reduced low cardiac output and not perfusing end organs sufficiently. Poor prognosis. - No aggressive measure as per pt power of real estate attorney - Dobutamine 3 mcg per kilogram per minute ordered. - Palliative care on case.. 3. Ischemic cardiomyopathy: - LV systolic function has been severely reduced. - No need for echo as per cardiology - ICD in place. 4. Acute on chronic renal insufficiency: - Likely secondary to poor cardiac output and hypotension. - Management and treatment as per nephrology. 5. Hypotension: - beta michael on hold . Inotropic support may improve BP. 6. Disposition: Poor prognosis. 7. hx of PNA on 01/27/17 admission: - Full Levaquin course completed on 02/07 - IV Rocephin, Levaquin, and Vancomycin given in ED x1 dose - Rapid influenza negative, PCR pending - BCx pending - DuoNeb PRN SOB/wheezing - No antibiotic at this time- no s/s of infection at this time, continue to monitor 8. Ischemic CVA: - Continue ASA and Plavix 9. Anemia: - Continue Ferrous Sulfate 10. DVT prophylaxis: - Heparin, RAMAKRISHNA and SCDs Code Status: LEVEL V, DNR/ DNI as per palliative consult. Continued [facility] stay due to: multiple IV medications needed Discharge planning: home with Hospice
[2017-02-10] VITALS (7 sets, daily range): BP systolic 94–116; BP diastolic 55–72; PULSE 71–83; TEMP 36.3–36.8; O2SAT 94–100
[2017-02-10] MEDS ORDERED: NURSING VERBAL MED ORDER ONE ×2 (02:30→08:30)
[2017-02-10] MEDS ORDERED: VANCOMYCIN CONSULT ACTIVE PRN (02:45)
[2017-02-10] MEDS ORDERED: VANCOMYCIN INJ 1,500 MG in SODIUM CHLORIDE 0.9% 500ML 500 ML IV SCH (03:00)
[2017-02-10] MEDS: DOBUTamine / D5W 500 MG IV PRN (03:35)
[2017-02-10] MEDS: HEPARIN 25,000 UNIT/500ML D5W 500 ML IV PRN (03:36)
[2017-02-10 05:38] LABS: HEMATOCRIT 33.6 % (42-52); MEAN CELL VOLUME 96.8 fL (80-100); MEAN CORPUSCULAR HEMOGLOBIN 33.4 pg (25-34); MEAN CORPUSCULAR HGB CONC 34.5 g/dl (32-36); RED BLOOD COUNT 3.47 M/uL (4.7-6.1); WHITE BLOOD COUNT 6.01 K/uL (4.8-10.8)
[2017-02-10 05:40] LABS: MEAN PLATELET VOLUME 11.4 fL (7.4-10.4); PLATELET COUNT 75 K/uL (130-400)
[2017-02-10 05:53] LABS: PARTIAL THROMBOPLASTIN RATIO 2.5
[2017-02-10 06:33] LABS: ALB/GLOB RATIO 0.9 (0.9-2); BUN/CREATININE RATIO 32.5 (10-20); CALCIUM 7.7 mg/dl (8.5-10.1); CREATININE 1.5 mg/dl (0.60-1.40); MAGNESIUM 2.5 mg/dl (1.8-2.4); POTASSIUM 3.2 mmol/L (3.5-5.1)
[2017-02-10] MEDS: INSULIN ASPART 100 UNITS/ML 3 ML PEN SC SCH ×4 (07:00→20:46)
[2017-02-10] MEDS: CLOPIDOGREL BISULFATE 75 MG TAB PO SCH (09:11)
[2017-02-10] MEDS: ASPIRIN 81 MG ECTAB PO SCH (09:11)
[2017-02-10] MEDS: FERROUS SULFATE 325 MG TAB PO SCH ×2 (09:11→16:54)
[2017-02-10] MEDS: INSULIN GLARGINE SOLOSTAR 100 UNITS/ML 3 ML PEN SC SCH ×2 (09:13→20:39)
[2017-02-10] MEDS ORDERED: POTASSIUM CHLORIDE 20 MEQ TABCR PO ONE (09:30)
--- NOTE | 2017-02-10 10:04 | Nephrology Progress Note ---
Nephrology Progress Note Date of Service Feb 10, 2017. Chief Complaint TRAE/CKD Subjective No acute events overnight. Expressed some discomfort in bed this morning. Denies chest pain. No fevers or chills. Able to tolerate oral KCl this morning. Appetite remains poor. Review of Systems A complete review of systems was complicated by aphasia. Pertinent positives are noted above. All other systems are negative. Vital Signs Last 8 Hrs Date Time Temp Pulse Resp B/P Pulse Ox O2 Delivery O2 Flow Rate FiO2 02/10/17 08:12 36.3 74 18 95/59 97 Room Air 02/10/17 04:00 Room Air 02/10/17 03:46 36.4 76 18 94/59 94 Room Air I & O 24-Hour Column 02/10/17 07:59 Intake Total 1445 ml Output Total 1650 ml Balance -205 ml Last Recorded Weight Weight (Kilograms): 67.500 Physical Exam General Appearance: no apparent distress, + thin, + pertinent finding (cachetic ) Head: normocephalic, atraumatic ENT: normal ENT inspection, + pertinent finding (Oral mucosa dry) Neck: supple, + JVD Respiratory/Chest: no respiratory distress, no accessory muscle use, + decreased breath sounds, + rales (basilar) Cardiovascular: regular rate, rhythm, + systolic murmur Abdomen/GI: non tender, soft Genitourinary - Male: + pertinent finding ([place] draining yellow urine) Extremities/Musculoskelatal: normal inspection, + pedal edema Neurologic/Psych: alert Family History Depression FH: heart disease Hypertension Social History Drug Use: none Marital Status: single Housing Status: other Occupation: retired, disabled Laboratory Results Past 24 Hours 02/10/17 05:15 02/10/17 05:15 Test 02/09/17 11:27 02/09/17 16:03 02/09/17 20:06 02/10/17 05:15 Bedside Glucose 105 mg/dl (70-99) 135 mg/dl (70-99) 116 mg/dl (70-99) Red Blood Count 3.47 M/uL (4.7-6.1) Mean Corpuscular Volume 96.8 fL (80-100) Mean Corpuscular Hemoglobin 33.4 pg (25-34) Mean Corpuscular Hemoglobin Concent 34.5 g/dl (32-36) RDW Standard Deviation 52.4 fL (36.4-46.3) RDW Coefficient of Variation 15.1 % (11.5-14.5) Mean Platelet Volume 11.4 fL (7.4-10.4) Activated Partial Thromboplast Time 64.4 SECONDS (21.0-31.0) Partial Thromboplastin Ratio 2.5 Anion Gap 7.0 mmol/L (3-11) Est Creatinine Clear Calc Drug Dose 38.1 ml/min Estimated GFR () 50.6 Estimated GFR (Non- 43.7 BUN/Creatinine Ratio 32.5 (10-20) Calcium Level 7.7 mg/dl (8.5-10.1) Magnesium Level 2.5 mg/dl (1.8-2.4) Total Bilirubin 1.5 mg/dl (0.2-1) Aspartate Amino Transf (AST/SGOT) 18 U/L (15-37) Alanine Aminotransferase (ALT/SGPT) 66 U/L (12-78) Alkaline Phosphatase 84 U/L (45-117) Total Protein 5.0 gm/dl (6.4-8.2) Albumin 2.4 gm/dl (3.4-5.0) Globulin 2.6 gm/dl (2.5-4.0) Albumin/Globulin Ratio 0.9 (0.9-2) Test 02/10/17 06:30 Bedside Glucose 85 mg/dl (70-99) Allergies Coded Allergies: No Known Allergies (Verified , 02/08/17) Medications Current Inpatient Medications Medications (Trade) Dose Ordered Sig/Em Route Start Time Stop Time Status Last Admin Dose Admin Al Hydrox/Mg Hydrox/Simethicone (Maalox Max Susp) 15 ml Q4H PRN PO 02/08/17 11:15 03/10/17 11:14 Magnesium Hydroxide (Milk Of Magnesia Susp) 30 ml Q12H PRN PO 02/08/17 11:15 03/10/17 11:14 Ondansetron HCl (Zofran Inj) 4 mg Q6H PRN IV 02/08/17 11:15 03/10/17 11:14 Nitroglycerin (Nitrostat Tab) 0.4 mg UD PRN SL 02/08/17 11:15 03/10/17 11:14 Polyethylene (Miralax Powder Packet) 17 gm DAILY PRN PO 02/08/17 11:15 03/10/17 11:14 Aspirin (Ecotrin Tab) 81 mg QAM PO 02/09/17 09:00 03/11/17 08:59 02/10/17 09:11 81 MG Clopidogrel Bisulfate (plAVix TAB) 75 mg QAM PO 02/09/17 09:00 03/11/17 08:59 02/10/17 09:11 75 MG Insulin Glargine (Lantus Solostar Pen) 8 unit QAM SC 02/09/17 09:00 03/11/17 08:59 02/10/17 09:13 8 UNIT Insulin Glargine (Lantus Solostar Pen) 13 unit QPM SC 02/08/17 21:00 03/10/17 20:59 02/09/17 20:08 13 UNIT Metoprolol Succinate (Toprol Xl Tab) 100 mg DAILY PO 02/09/17 09:00 03/11/17 08:59 Future Hold Insulin Aspart (novoLOG ASPART) SLIDING SCALE G... ACHS SC 02/08/17 16:00 03/10/17 15:59 Albuterol/ Ipratropium 3 ml 3 ml Q4R PRN INH 02/08/17 11:15 03/10/17 11:14 Heparin Sodium/ Dextrose (Heparin 25,000 Unit/500ml D5W) 500 ml @ 12 mls/hr Q24H PRN IV 02/08/17 13:30 03/10/17 13:29 02/10/17 03:36 12 MLS/HR Glucose (Glucose 40% Gel) 15-30 GRAMS 15 GRAMS... UD PRN PO 02/08/17 14:00 03/10/17 13:59 Glucose (Glucose Chew Tab) 4-8 Tablets 4 Tabl... UD PRN PO 02/08/17 14:00 03/10/17 13:59 Dextrose (Dextrose 50% 50ML Syringe) 25-50ML OF 50% DW IV FOR... UD PRN IV 02/08/17 14:00 03/10/17 13:59 Glucagon 1 mg 1 mg UD PRN SQ 02/08/17 14:00 03/10/17 13:59 Dobutamine HCl (DOBUTamine / D5W) 250 ml @ 0 mls/hr Q0M PRN IV 02/08/17 14:30 03/10/17 14:29 02/10/17 03:35 6.1 MLS/HR Ferrous Sulfate (Feosol Tab) 325 mg BIDM PO 02/08/17 16:45 03/10/17 16:44 02/10/17 09:11 325 MG Vancomycin HCl (Consult) 1 ea UD PRN N/A 02/10/17 02:45 03/12/17 02:44 Impression (1) Acute renal insufficiency (2) CKD (chronic kidney disease) stage 3, GFR 30-59 ml/min (3) Ischemic cardiomyopathy (4) Acute on chronic systolic heart failure (5) Cardiorenal syndrome (6) Elevated troponin Topher is a 81-year-old male with chronic kidney disease III A1 attributed to diabetes mellitus and hypertension. He has an advanced ischemic cardiomyopathy with systolic dysfunction. He was admitted to [facility] earlier this month with pneumonia complicated by acute on chronic renal failure. Topher presented to the emergency department 02/08/17 with weakness, mental status changes, concern for urinary retention and anorexia. He has acute on chronic systolic congestive heart failure and predominately R heart failure. He has acute renal failure most consistent with cardiorenal syndrome. Renal function with dobutamine gtt. He is non oliguric. Metabolic profile is otherwise appropriate. Medications are appropriately dosed for renal function. He has not been on ERASMO/ARB since prior history of TRAE. Suggest continue furosemide to encourage net negative fluid balance. Hypokalemia treated with oral KCl this morning. Will start spironolactone today. Renal ultrasound shows cortical atrophy and cyst formation consistent with CKD. There were no acute findings. Recommendations -- Furosemide 40 mg IV this AM -- Spironolactone 25 mg daily -- [place]umfield to gravity -- Document I/O's -- Repeat metabolic profile tomorrow AM -- Continue dobutamine gtt per cardiology
[2017-02-10] MEDS ORDERED: SPIRONOLACTONE 25 MG TAB PO ONE (10:05)
[2017-02-10] MEDS ORDERED: FUROSEMIDE INJ 40 MG in SYRINGE 0 ML IV ONE (11:00)
--- NOTE | 2017-02-10 13:51 | Pharmacy Progress Note ---
Pharmacy Antibiotic Consult Date of Service: Feb 10, 2017. Pharmacy Dosing Scope Pharmacy is consulted to initiate IV Vancomycin dosing therapy, order appropriate labs and adjust drug dose/frequency. Subjective The patient is a 81 year old male admitted on Feb 08, 2017 at 11:21. Objective Height (Feet): 5 Height (Inches): 10.00 Weight (Kilograms): 67.500 Lab Results (24hrs): Laboratory Tests Test 02/10/17 05:15 BUN/Creatinine Ratio 32.5 Blood Urea Nitrogen 49 mg/dl Creatinine 1.50 mg/dl White Blood Count 6.01 K/uL Micro Results: Item Value Date Time Blood Culture - Preliminary Resulted 02/08/17 0910 Blood Gram Positive Cocci Blood Culture - Preliminary Resulted 02/08/17 1039 Blood NO GROWTH TO DATE. Recent Pertinent Medications Item Value Date Time Vancomycin HCl 530 ml @ 200 mls/hr 02/10/17 0300 1500 mg/Sodium TODAY@0300/IV 02/10/17 0300 Chloride Vancomycin HCl 270 ml @ 125 mls/hr 02/10/17 1400 1000 mg/Sodium Q18H/IV Chloride Assessment & Plan Vancomycin * 81 yo M with 1 of 2 blood cx showing gram pos cocci * Loading dose: Vancomycin 1500mg IV x 1 dose (22mg/kg) * Maintenance dose: Vancomycin 1gm IV q18h (~15mg/kg) * Est half-life ~ 19hr * Goal peak level: 30-40mcg/mL * Goal trough level: 15-20mcg/mL * Will await further cx results to determine if possible contaminant/ discontinuation of vanco * Trough level ordered for: 02/12/17 0200 dose Pharmacy will continue to follow and will adjust dose/frequency as necessary. Thank you
[2017-02-10] MEDS: VANCOMYCIN INJ 1,000 MG in SODIUM CHLORIDE 0.9% 250ML 250 ML IV SCH (14:00)
[2017-02-10] MEDS ORDERED: VANCOMYCIN INJ 1,000 MG in SODIUM CHLORIDE 0.9% 250ML 250 ML IV SCH (14:00)
--- NOTE | 2017-02-10 15:38 | Progress Note ---
Subjective Date of Service: Feb 10, 2017. Subjective Pt evaluation today including: conversation w/ patient, physical exam, chart review, lab review, review of studies, review of inpatient medication list Pain: pt is not c/o of pain Voiding: brown catheter in place Pt is seen and examined. Pt denies any CP, SOB, Nausea , Vomiting and diarrhea. Pt was sitting in comfortably in bed this morning. Pt is not in distress, and denies any pain. Problem List Medical Problems: (1) Acute kidney injury Status: Acute (2) Elevated liver function tests Status: Acute (3) Elevated troponin Status: Acute (4) Febrile Status: Acute (5) Hyperglycemia Status: Acute (6) Hypokalemia Status: Acute (7) Near syncope Status: Acute (8) Weakness Status: Acute Review of Systems All Other Systems: Reviewed and Negative Medications Medications (Trade) Dose Ordered Sig/Em Route Start Time Stop Time Status Last Admin Dose Admin Vancomycin HCl/ Sodium Chloride (Vancomycin Inj/ Nss 500ml) 530 ml @ 200 mls/hr TODAY@0300 IV 02/10/17 03:00 02/10/17 05:38 DC 02/10/17 03:00 200 MLS/HR Potassium Chloride (Klor-Con Tab) 40 meq NOW ONCE PO 02/10/17 09:30 02/10/17 09:31 DC 02/10/17 09:12 40 MEQ Spironolactone 25 mg 25 mg 1005 ONCE PO 02/10/17 10:05 02/10/17 10:38 DC 02/10/17 10:50 25 MG Furosemide 40 mg/ Syringe 4 ml @ 4 mls/min NOW ONCE IV 02/10/17 11:00 02/10/17 11:01 DC 02/10/17 11:44 4 MLS/MIN Vancomycin HCl/ Sodium Chloride (Vancomycin Inj/ Nss 250ml) 270 ml @ 125 mls/hr Q18H IV 02/10/17 14:00 02/24/17 13:59 02/10/17 14:00 125 MLS/HR Objective Vital Signs Date Time Temp Pulse Resp B/P Pulse Ox O2 Delivery O2 Flow Rate FiO2 02/10/17 12:01 36.3 71 16 96/57 100 Room Air 02/10/17 12:00 Room Air 02/10/17 08:12 36.3 74 18 95/59 97 Room Air 02/10/17 08:00 Room Air 02/10/17 04:00 Room Air 02/10/17 03:46 36.4 76 18 94/59 94 Room Air 02/10/17 00:09 36.8 83 18 94/55 95 Room Air 02/09/17 23:59 Room Air 02/09/17 20:12 36.4 79 20 107/58 100 Room Air 02/09/17 20:00 Room Air 02/09/17 16:00 Room Air 02/09/17 15:47 36.7 80 16 94/60 100 Room Air Physical Exam Comments: GENERAL: No acute distress. Pt is alert. NECK: No appreciable bruits. Elevated JVD. Normal carotid upstrokes bilaterally. CARDIAC EXAMINATION: PMI was nonpalpable.Regular, normal S1, S2. A 2/6 holosystolic murmur best heard at the apex. No rubs or gallops. LUNGS: Clear to auscultation on anterior auscultation. No wheezes, rales, or rhonchi noted. ABDOMEN: Soft, nontender, nondistended, normoactive bowel sounds, no bruits noted. EXTREMITIES: 3+ bilateral lower extremity pitting edema. No palpable cords. His fingernail beds were cyanotic. 1+ radial pulses bilaterally. Laboratory Results Last 24 Hours Test 02/09/17 16:03 02/09/17 20:06 02/10/17 05:15 02/10/17 06:30 Bedside Glucose 135 mg/dl 116 mg/dl 85 mg/dl White Blood Count 6.01 K/uL Red Blood Count 3.47 M/uL Hemoglobin 11.6 g/dL Hematocrit 33.6 % Mean Corpuscular Volume 96.8 fL Mean Corpuscular Hemoglobin 33.4 pg Mean Corpuscular Hemoglobin Concent 34.5 g/dl RDW Standard Deviation 52.4 fL RDW Coefficient of Variation 15.1 % Platelet Count 75 K/uL Mean Platelet Volume 11.4 fL Activated Partial Thromboplast Time 64.4 SECONDS Partial Thromboplastin Ratio 2.5 Sodium Level 138 mmol/L Potassium Level 3.2 mmol/L Chloride Level 105 mmol/L Carbon Dioxide Level 26 mmol/L Anion Gap 7.0 mmol/L Blood Urea Nitrogen 49 mg/dl Creatinine 1.50 mg/dl Est Creatinine Clear Calc Drug Dose 38.1 ml/min Estimated GFR () 50.6 Estimated GFR (Non- 43.7 BUN/Creatinine Ratio 32.5 Random Glucose 64 mg/dl Calcium Level 7.7 mg/dl Magnesium Level 2.5 mg/dl Total Bilirubin 1.5 mg/dl Aspartate Amino Transf (AST/SGOT) 18 U/L Alanine Aminotransferase (ALT/SGPT) 66 U/L Alkaline Phosphatase 84 U/L Total Protein 5.0 gm/dl Albumin 2.4 gm/dl Globulin 2.6 gm/dl Albumin/Globulin Ratio 0.9 Test 02/10/17 11:16 Bedside Glucose 100 mg/dl Assessment and Plan 81 y/o male, with PMHx of CAD s/p FL, 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 - Significantly reduced low cardiac output and not perfusing end organs sufficiently. Poor prognosis. - No aggressive measure as per pt power of attorney recruiter - Dobutamine 3 mcg per kilogram per minute ordered. - Palliative care on case.. Ischemic cardiomyopathy: - LV systolic function has been severely reduced. - No need for echo as per cardiology - ICD in place. Acute on chronic renal insufficiency: - Likely secondary to poor cardiac output and hypotension. - Cr improved to 1.5 - Management and treatment as per nephrology. Hypokalemia: - replaced. Hypotension: - beta michael on hold . Inotropic support may improve BP. Hx of PNA on 01/27/17 admission: - Full Levaquin course completed on 02/07 - IV Rocephin, Levaquin, and Vancomycin given in ED x1 dose - Rapid influenza negative, PCR pending - One out of two BCx positive , Gram + cocci. On IV vancomycin as per pharmacy managing dosing. - no WBC or left shift. - DuoNeb PRN SOB/wheezing Ischemic CVA: - Continue ASA and Plavix Anemia: - Continue Ferrous Sulfate DVT prophylaxis: - Heparin, RAMAKRISHNA and SCDs Code Status: LEVEL V, DNR/ DNI as per palliative consult. Continued [facility] stay due to: multiple IV medications needed Discharge planning: home with Hospice
[2017-02-11 01:39] LABS: BUN/CREATININE RATIO 31.4 (10-20); CALCIUM 7.8 mg/dl (8.5-10.1); CREATININE 1.4 mg/dl (0.60-1.40); MAGNESIUM 2.4 mg/dl (1.8-2.4); POTASSIUM 3.7 mmol/L (3.5-5.1)
[2017-02-11] MEDS: POTASSIUM CHLR 10 MEQ / WTR 10 MEQ in PREMIXED WATER 100 ML IV SCH ×2 (02:26→03:33)
[2017-02-11 03:59] VITALS: BP 97/64; PULSE 75; TEMP 37; O2SAT 97
[2017-02-11 06:37] LABS: HEMATOCRIT 35.9 % (42-52); MEAN CORPUSCULAR HEMOGLOBIN 33.4 pg (25-34); MEAN CORPUSCULAR HGB CONC 34.8 g/dl (32-36); RED BLOOD COUNT 3.74 M/uL (4.7-6.1); WHITE BLOOD COUNT 5.89 K/uL (4.8-10.8)
[2017-02-11 06:46] LABS: MEAN PLATELET VOLUME 11.4 fL (7.4-10.4); PLATELET COUNT 74 K/uL (130-400)
[2017-02-11 06:57] LABS: PARTIAL THROMBOPLASTIN RATIO 2.2
[2017-02-11] MEDS: INSULIN ASPART 100 UNITS/ML 3 ML PEN SC SCH ×4 (07:00→20:48)
[2017-02-11 07:05] LABS: BUN/CREATININE RATIO 31.3 (10-20); CREATININE 1.4 mg/dl (0.60-1.40); MAGNESIUM 2.3 mg/dl (1.8-2.4)
[2017-02-11 07:08] LABS: ALB/GLOB RATIO 0.9 (0.9-2)
[2017-02-11 07:56] VITALS: BP 110/75; PULSE 94; TEMP 36.3; O2SAT 99
[2017-02-11] MEDS: CLOPIDOGREL BISULFATE 75 MG TAB PO SCH (09:00)
--- NOTE | 2017-02-11 09:22 | Clinical Documentation Query ---
Dr. GERALD BAILON, [facility] : CLINICAL DOCUMENTATION QUERY Patient is a 81 year old male presented for evaluation of weakness and poor oral intake. Documentation includes "elevated trop", noting a history of ischemic cardiomyopathy and an LVEF of 21%, in the setting of acute on chronic systolic CHF. Cardiology documentation includes "NSTEMI". This documentation has not been recapitulated in subsequent notes. As appropriate, consider clarification as suggested below as this directly impacts DRG assignment. Thank you. In your clinical opinion is this patient being managed for: ( X ) NSTEMI ( ) Other explanation of clinical findings (Please Explain) ( ) Unable to determine (Please Define) ( ) Need to Discuss ( ) Not Agree The medical record reflects the following clinical findings, treatment, and risk factors. Clinical Indicators: As above Treatment: ASA, Plavix, Heparin, telemetry Risk Factors: Age, ischemic cardiomyopathy, acute on chronic systolic CHF, TRAE on CKD stage 3, recent pneumonia Please clarify and document your clinical opinion in the progress notes and discharge summary. Terms such as "probable", "suspected", "likely", "questionable", "possible", or "still to be ruled out" are acceptable. IF IN AGREEMENT, YOU MUST DOCUMENT ABOVE DIAGNOSTIC STATEMENT IN DAILY PROGRESS NOTES AND DISCHARGE SUMMARY. This document is not part of the patient's record. Thank You, Feliciano Adams, ROSA [phone]
[2017-02-11] MEDS ORDERED: FUROSEMIDE INJ 40 MG in SYRINGE 0 ML IV ONE (09:30)
--- NOTE | 2017-02-11 09:45 | CARDIOLOGY PROGRESS NOTE ---
DATE: 02/11/2017 TIME: 09:06 a.m. SUBJECTIVE: He is aphasic and therefore, history is difficult to obtain; however, he denies shortness of breath, chest pain or any other pain through written communication. He did indicate, however, that he remains tired. Jackeline, his power of patent attorney, was contacted via telephone. We had a conversation regarding his care. She would like to take him home with hospice. We discussed ICD therapy as he does have an ICD in place. It was recommended, therefore, that we disable the therapy from the ICD, which she was agreeable to. She would like him to remain hospitalized as long as it takes for her to get him home safely with the appropriate care at home arranged. Palliative care did speak with her on Saturday and they plan on following up with her today. OBJECTIVE: VITAL SIGNS: Temperature 36.3 degrees, heart rate 94 beats per minute, respiratory rate 18, blood pressure 110/75 mmHg, and oxygen saturation 99% on room air. I's and O's positive 1.2 liters yesterday. Weight is 72.3 kg. GENERAL: No acute distress. He is alert. NECK: No significant JVD. CARDIAC EXAM: No ventricular heave, regular, normal S1 and S2, 2/6 holosystolic murmur best heard at the apex. LUNGS: Decreased breath sounds, but clear on anterior auscultation. ABDOMEN: Soft, nontender, and nondistended. Normoactive bowel sounds. EXTREMITIES: 2+ bilateral lower extremity edema care home to the knees. No cyanosis. MEDICATIONS: Aspirin 81 mg daily, Plavix 75 mg daily, dobutamine drip at 3 mcg per kilogram per minute, heparin drip per protocol, Lasix 40 mg IV x1 yesterday, potassium chloride 40 mEq yesterday, spironolactone 25 mg p.o. q.a.m., and vancomycin IV. Blood cultures 1/2 growing micrococcus species. Preliminary report. LABORATORY DATA: White blood cell count 5.89, hemoglobin 12.5, and platelets are 74. Sodium 136, potassium 4, BUN 44, creatinine 1.4, magnesium 2.3, and albumin 2.4. Telemetry personally reviewed. No ventricular arrhythmias. ASSESSMENT AND PLAN: 1. Acute on chronic systolic congestive heart failure: We will give another Lasix 40 mg IV x1. Spironolactone was started over the weekend by nephrology. Please note caution, however, as he has had issues with hyperkalemia in the past on low dose lisinopril. Continue dobutamine at 3 mcg per kilogram per minute until discharged. The plan is home with hospice after discussion this morning with Jackeline, his data conversion developer and power of patent attorney. 2. Ischemic cardiomyopathy: Severely reduced LV systolic function. Continue dobutamine as above. Beta michael has been held secondary to hypotension. ERASMO inhibitor has been held due to symptomatic hypotension in the past and has also had issues with hyperkalemia with ERASMO inhibitor. 3. Non-ST elevation myocardial infarction: Heparin drip will be discontinued at this time. Power of patent attorney and the patient in the past had stated that they did not want invasive measures. It appears as though we will be transitioned him into hospice care, preferably at home as per power of patent attorney, Jackeline Davis. Can continue antiplatelet therapy. He does have thrombocytopenia, so therefore monitor closely for bleeding. 4. Hypotension: Beta michael has been held. He is still hypotensive predominantly, but at times normotensive. 5. Acute on chronic renal insufficiency: Renal function has improved with dobutamine. 6. Coronary artery disease: He has denied any angina. He did not present with acute coronary syndrome. Can continue antiplatelet therapy if no contraindications. Transitioning towards hospice. 7. Disposition: Power of patent attorney wishes for home with hospice, which seems appropriate. Dr. Mijares of electrophysiology has been contacted and we have discussed discontinuing ICD therapy, so that he does not receive any shocks at home. This will be arranged to be performed, hopefully later today. Cardiology will continue to follow while hospitalized. I will be away tomorrow, however and therefore if there are any questions or concerns, please do not hesitate to contact me via telephone or the on-call plastic battery assembler for [facility].
[2017-02-11] MEDS: VANCOMYCIN INJ 1,000 MG in SODIUM CHLORIDE 0.9% 250ML 250 ML IV SCH (10:05)
[2017-02-11] MEDS: SPIRONOLACTONE 25 MG TAB PO SCH (10:06)
[2017-02-11] MEDS: INSULIN GLARGINE SOLOSTAR 100 UNITS/ML 3 ML PEN SC SCH ×2 (10:06→20:48)
[2017-02-11] MEDS: ASPIRIN 81 MG ECTAB PO SCH (10:07)
[2017-02-11] MEDS: FERROUS SULFATE 325 MG TAB PO SCH ×2 (10:07→16:44)
--- NOTE | 2017-02-11 11:16 | Nephrology Progress Note ---
Nephrology Progress Note Date of Service Feb 11, 2017. Chief Complaint Follow up evaluation of acute on chronic kidney injury due to systolic CHF Subjective Mr. Alcocer was seen & examined in his hospital room this morning. Patient is aphasic. He appears comfortable and in no acute distress. His POA was not present at the time of my evaluation. Cardiology recommendations in EMR reviewed. Patient has advanced ICM. He remains on Dobutamine gtt. Cardiology has discussed poor prognosis and plan of care w/ POA. Arrangements have been made to turn off AICD and set up home hospice. Review of Systems Unable to obtain. Patient is aphasic. Vital Signs Last 8 Hrs Date Time Temp Pulse Resp B/P Pulse Ox O2 Delivery O2 Flow Rate FiO2 02/11/17 08:00 Room Air 02/11/17 07:56 36.3 94 18 110/75 99 Room Air 02/11/17 04:00 Room Air 02/11/17 03:59 37.0 75 18 97/64 97 Room Air I & O 24-Hour Column 02/11/17 08:00 Intake Total 3529 ml Output Total 2150 ml Balance 1379 ml Last Recorded Weight Weight (Kilograms): 72.300 Physical Exam General Appearance: no apparent distress Head: atraumatic (marked temporal muscle wasting) Eyes: PERRL Neck: no adenopathy Respiratory/Chest: lungs clear, no respiratory distress Cardiovascular: regular rate, rhythm Abdomen/GI: normal bowel sounds, non tender, soft Extremities/Musculoskelatal: no calf tenderness, no pedal edema Neurologic/Psych: alert Family History Depression FH: heart disease Hypertension Social History Drug Use: none Marital Status: single Housing Status: other Occupation: retired, disabled Laboratory Results Past 24 Hours 02/11/17 05:55 02/11/17 00:49 02/11/17 05:55 Test 02/10/17 11:16 02/10/17 16:19 02/10/17 20:02 02/11/17 00:49 Bedside Glucose 100 mg/dl (70-99) 112 mg/dl (70-99) 121 mg/dl (70-99) Anion Gap 11.0 mmol/L (3-11) Est Creatinine Clear Calc Drug Dose 40.8 ml/min Estimated GFR () 55.0 Estimated GFR (Non- 47.5 BUN/Creatinine Ratio 31.4 (10-20) Calcium Level 7.8 mg/dl (8.5-10.1) Phosphorus Level 3.0 mg/dl (2.5-4.9) Magnesium Level 2.4 mg/dl (1.8-2.4) Test 02/11/17 05:55 02/11/17 07:00 Red Blood Count 3.74 M/uL (4.7-6.1) Mean Corpuscular Volume 96.0 fL (80-100) Mean Corpuscular Hemoglobin 33.4 pg (25-34) Mean Corpuscular Hemoglobin Concent 34.8 g/dl (32-36) RDW Standard Deviation 52.7 fL (36.4-46.3) RDW Coefficient of Variation 15.1 % (11.5-14.5) Mean Platelet Volume 11.4 fL (7.4-10.4) Activated Partial Thromboplast Time 56.0 SECONDS (21.0-31.0) Partial Thromboplastin Ratio 2.2 Anion Gap 9.0 mmol/L (3-11) Est Creatinine Clear Calc Drug Dose 43.8 ml/min Estimated GFR () 55.0 Estimated GFR (Non- 47.5 BUN/Creatinine Ratio 31.3 (10-20) Calcium Level 8.0 mg/dl (8.5-10.1) Magnesium Level 2.3 mg/dl (1.8-2.4) Total Bilirubin 1.3 mg/dl (0.2-1) Aspartate Amino Transf (AST/SGOT) 26 U/L (15-37) Alanine Aminotransferase (ALT/SGPT) 66 U/L (12-78) Alkaline Phosphatase 97 U/L (45-117) Total Protein 5.2 gm/dl (6.4-8.2) Albumin 2.4 gm/dl (3.4-5.0) Globulin 2.8 gm/dl (2.5-4.0) Albumin/Globulin Ratio 0.9 (0.9-2) Bedside Glucose 109 mg/dl (70-99) Allergies Coded Allergies: No Known Allergies (Verified , 02/08/17) Medications Current Inpatient Medications Medications (Trade) Dose Ordered Sig/Em Route Start Time Stop Time Status Last Admin Dose Admin Al Hydrox/Mg Hydrox/Simethicone (Maalox Max Susp) 15 ml Q4H PRN PO 02/08/17 11:15 03/10/17 11:14 Magnesium Hydroxide (Milk Of Magnesia Susp) 30 ml Q12H PRN PO 02/08/17 11:15 03/10/17 11:14 Ondansetron HCl (Zofran Inj) 4 mg Q6H PRN IV 02/08/17 11:15 03/10/17 11:14 Nitroglycerin (Nitrostat Tab) 0.4 mg UD PRN SL 02/08/17 11:15 03/10/17 11:14 Polyethylene (Miralax Powder Packet) 17 gm DAILY PRN PO 02/08/17 11:15 03/10/17 11:14 Aspirin (Ecotrin Tab) 81 mg QAM PO 02/09/17 09:00 03/11/17 08:59 02/11/17 10:07 81 MG Clopidogrel Bisulfate (plAVix TAB) 75 mg QAM PO 02/09/17 09:00 03/11/17 08:59 02/10/17 09:11 75 MG Insulin Glargine (Lantus Solostar Pen) 8 unit QAM SC 02/09/17 09:00 03/11/17 08:59 02/11/17 10:06 8 UNIT Insulin Glargine (Lantus Solostar Pen) 13 unit QPM SC 02/08/17 21:00 03/10/17 20:59 02/10/17 20:39 13 UNIT Metoprolol Succinate (Toprol Xl Tab) 100 mg DAILY PO 02/09/17 09:00 03/11/17 08:59 Future Hold Insulin Aspart (novoLOG ASPART) SLIDING SCALE G... ACHS SC 02/08/17 16:00 03/10/17 15:59 Albuterol/ Ipratropium (Duoneb) 3 ml Q4R PRN INH 02/08/17 11:15 03/10/17 11:14 Glucose (Glucose 40% Gel) 15-30 GRAMS 15 GRAMS... UD PRN PO 02/08/17 14:00 03/10/17 13:59 Glucose (Glucose Chew Tab) 4-8 Tablets 4 Tabl... UD PRN PO 02/08/17 14:00 03/10/17 13:59 Dextrose (Dextrose 50% 50ML Syringe) 25-50ML OF 50% DW IV FOR... UD PRN IV 02/08/17 14:00 03/10/17 13:59 Glucagon 1 mg 1 mg UD PRN SQ 02/08/17 14:00 03/10/17 13:59 Dobutamine HCl (DOBUTamine / D5W) 250 ml @ 0 mls/hr Q0M PRN IV 02/08/17 14:30 03/10/17 14:29 02/10/17 03:35 6.1 MLS/HR Ferrous Sulfate (Feosol Tab) 325 mg BIDM PO 02/08/17 16:45 03/10/17 16:44 02/11/17 10:07 325 MG Vancomycin HCl (Consult) 1 ea UD PRN N/A 02/10/17 02:45 03/12/17 02:44 Spironolactone 25 mg 25 mg QAM PO 02/11/17 09:00 03/13/17 08:59 02/11/17 10:06 25 MG Vancomycin HCl/ Sodium Chloride (Vancomycin Inj/ Nss 250ml) 270 ml @ 125 mls/hr Q18H IV 02/10/17 14:00 02/24/17 13:59 02/11/17 10:05 125 MLS/HR Impression (1) Acute renal insufficiency (2) CKD (chronic kidney disease) stage 3, GFR 30-59 ml/min (3) Ischemic cardiomyopathy (4) Acute on chronic systolic heart failure (5) Cardiorenal syndrome (6) Elevated troponin Topher is a 81-year-old male with chronic kidney disease III A1 attributed to diabetes mellitus and hypertension. He has an advanced ischemic cardiomyopathy with systolic dysfunction. He was admitted to [facility] earlier this month with pneumonia complicated by acute on chronic renal failure. Topher presented to the emergency department 02/08/17 with weakness, mental status changes, concern for urinary retention and anorexia. He has acute on chronic systolic congestive heart failure and predominately R heart failure. He has acute renal failure most consistent with cardiorenal syndrome. Renal function has recovered with dobutamine gtt. He is non oliguric. Metabolic profile is otherwise appropriate. Medications are appropriately dosed for renal function. He has not been on ERASMO/ARB since prior history of TRAE. Renal ultrasound shows cortical atrophy and cyst formation consistent with CKD. There were no acute findings. Recommendations -- Furosemide 40 mg IV this AM as per Cardiology -- Spironolactone 25 mg daily. Monitor for hyperkalemia -- [place]field to gravity -- Document I/O's -- Repeat metabolic profile tomorrow AM -- Continue dobutamine gtt per cardiology -- Cardiology recommendations reviewed this am. They have discussed poor prognosis and plan of care w/ POA. Arrangements have been made to turn off AICD and set up home hospice. Will sign off. Please call if further nephrology assistance is needed.
[2017-02-11 11:53] VITALS: BP 100/69; PULSE 84; TEMP 36.3; O2SAT 99
--- NOTE | 2017-02-11 12:27 | Palliative Care Progress Note ---
Palliative Care Progress Note Date of Service Feb 11, 2017. Subjective Pt evaluation today including: conversation w/ patient, conversation w/ family (Jackeline Davis, guardian/POA/inside channel account manager), physical exam, chart review, conversation w/ data power consultant, review of inpatient medication list Pain: 0/10 PO Intake: tolerating diet Voiding: brown catheter in place -Patient is more alert today. Orientation is questionable, he does not answer all questions appropriately and has aphasia and garbled speech from previous CVA. -Denied any pain or discomfort. When asked how he was doing just shook his head and closed his eyes. Kept repeating the word "going" but could not make out what he was trying to relay. He did indicate that he wanted to go home and is tired. -Spoke with POTyson, Jackeline Davis, on phone. She has made the decision to take patient home on hospice. I will be meeting with her tomorrow. See plan below. Review of Systems Constitutional: + weakness Respiratory: No shortness of breath Abdomen: No nausea, No pain, No vomiting full ROS not obtainable due to patient condition Objective Vital Signs Date Time Temp Pulse Resp B/P Pulse Ox O2 Delivery O2 Flow Rate FiO2 02/11/17 08:00 Room Air 02/11/17 07:56 36.3 94 18 110/75 99 Room Air 02/11/17 04:00 Room Air 02/11/17 03:59 37.0 75 18 97/64 97 Room Air 02/10/17 23:59 Room Air 02/10/17 23:22 36.8 77 19 96/66 100 Room Air 02/10/17 20:00 Room Air 02/10/17 19:17 36.4 77 19 116/72 100 Room Air 02/10/17 16:00 Room Air 02/10/17 15:17 36.4 72 18 107/71 100 Room Air 02/10/17 12:01 36.3 71 16 96/57 100 Room Air 02/10/17 12:00 Room Air Physical Exam General Appearance: no apparent distress, + thin Neck: no JVD Respiratory/Chest: no respiratory distress, no accessory muscle use, + decreased breath sounds, + pertinent finding (room air) Cardiovascular: regular rate, rhythm, + normal peripheral pulses, + pertinent finding (+1 pitting edema to bilateral ankles) Abdomen: normal bowel sounds, non tender, soft Neurologic/Psychiatric: alert, + aphasia (with garbled speech) Laboratory Results Last 24 Hours Test 02/10/17 16:19 02/10/17 20:02 02/11/17 00:49 02/11/17 05:55 Bedside Glucose 112 mg/dl 121 mg/dl Sodium Level 139 mmol/L 136 mmol/L Potassium Level 3.7 mmol/L 4.0 mmol/L Chloride Level 104 mmol/L 103 mmol/L Carbon Dioxide Level 24 mmol/L 24 mmol/L Anion Gap 11.0 mmol/L 9.0 mmol/L Blood Urea Nitrogen 44 mg/dl 44 mg/dl Creatinine 1.40 mg/dl 1.40 mg/dl Est Creatinine Clear Calc Drug Dose 40.8 ml/min 43.8 ml/min Estimated GFR () 55.0 55.0 Estimated GFR (Non- 47.5 47.5 BUN/Creatinine Ratio 31.4 31.3 Random Glucose 80 mg/dl 69 mg/dl Calcium Level 7.8 mg/dl 8.0 mg/dl Phosphorus Level 3.0 mg/dl Magnesium Level 2.4 mg/dl 2.3 mg/dl White Blood Count 5.89 K/uL Red Blood Count 3.74 M/uL Hemoglobin 12.5 g/dL Hematocrit 35.9 % Mean Corpuscular Volume 96.0 fL Mean Corpuscular Hemoglobin 33.4 pg Mean Corpuscular Hemoglobin Concent 34.8 g/dl RDW Standard Deviation 52.7 fL RDW Coefficient of Variation 15.1 % Platelet Count 74 K/uL Mean Platelet Volume 11.4 fL Activated Partial Thromboplast Time 56.0 SECONDS Partial Thromboplastin Ratio 2.2 Total Bilirubin 1.3 mg/dl Aspartate Amino Transf (AST/SGOT) 26 U/L Alanine Aminotransferase (ALT/SGPT) 66 U/L Alkaline Phosphatase 97 U/L Total Protein 5.2 gm/dl Albumin 2.4 gm/dl Globulin 2.8 gm/dl Albumin/Globulin Ratio 0.9 Test 02/11/17 07:00 02/11/17 11:29 Bedside Glucose 109 mg/dl 132 mg/dl Assessment and Plan Problem list: Elevated troponin Ischemic cardiomyopathy with EF 21% TRAE on CKD stage III Hypotension Oliguria Decreased PO intake Elevated LFTs Recent history of pneumonia 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 -RODRIGUEZ Viveros, found living will which indicates that in end-stage medical condition patient would not want CPR, intubation, feeding tube or dialysis. -Home with hospice, Jackeline [facility]. -I will meet with her in person tomorrow, time undecided- she will call me, but she is okay with referral being made to hospice now. -Per chemical equipment sales engineer- plans made to shut off ICD and patient will remain on Dobutamine until discharge. -I would recommend discharging patient with a scopolamine patch and Roxanol PRN for symptom management. I will continue to follow as needed. Palliative Performance Scale: 30 % Continued [facility] stay due to: multiple IV medications needed Discharge planning: home with Hospice
[2017-02-11 15:24] VITALS: BP 93/61; PULSE 88; TEMP 36.1; O2SAT 98
[2017-02-11] MEDS ORDERED: MoRPHine SULFATE 5 MG/0.25 ML UDP PO PRN (15:30)
--- NOTE | 2017-02-11 15:54 | Progress Note ---
Subjective Date of Service: Feb 11, 2017. (Airam Jones PA-C) Subjective Pt evaluation today including: conversation w/ patient, physical exam, chart review, lab review, review of studies, conversation w/ sap basis consultant (Palliative Care), review of inpatient medication list Voiding: brown catheter in place Patient seen and evaluated. Noted runs of VT overnight. Plan for home with hospice. Palliative care following. Per cardiology plan is to shut off ICD. Patient with expressive aphasia and therefore conversation limited. Patient easily answers yes/no questions and follows commands about difficulty. Reports poor appetite. The verbalizes no other complaints at this time. (Airam Jones, NHIC) Problem List Medical Problems: (1) Acute kidney injury Status: Acute (2) Elevated liver function tests Status: Acute (3) Elevated troponin Status: Acute (4) Febrile Status: Acute (5) Hyperglycemia Status: Acute (6) Hypokalemia Status: Acute (7) Near syncope Status: Acute (8) Weakness Status: Acute (Airam Jones, NHIC) Review of Systems Constitutional: + fatigue, + problem reported (poor appetite), No chills, No fever Respiratory: No shortness of breath Cardiac: No chest pain Abdomen: No nausea, No pain, No vomiting Musculoskeletal: No calf pain, No swelling Skin: + problem reported (multiple ecchymosis) (Airam Jones, NHIC) Medications Current Inpatient Medications Medications (Trade) Dose Ordered Sig/Em Route Start Time Stop Time Status Last Admin Dose Admin Al Hydrox/Mg Hydrox/Simethicone (Maalox Max Susp) 15 ml Q4H PRN PO 02/08/17 11:15 03/10/17 11:14 Magnesium Hydroxide (Milk Of Magnesia Susp) 30 ml Q12H PRN PO 02/08/17 11:15 03/10/17 11:14 Ondansetron HCl (Zofran Inj) 4 mg Q6H PRN IV 02/08/17 11:15 03/10/17 11:14 Nitroglycerin (Nitrostat Tab) 0.4 mg UD PRN SL 02/08/17 11:15 03/10/17 11:14 Polyethylene (Miralax Powder Packet) 17 gm DAILY PRN PO 02/08/17 11:15 03/10/17 11:14 Aspirin (Ecotrin Tab) 81 mg QAM PO 02/09/17 09:00 03/11/17 08:59 02/11/17 10:07 81 MG Clopidogrel Bisulfate (plAVix TAB) 75 mg QAM PO 02/09/17 09:00 03/11/17 08:59 02/11/17 09:00 75 MG Insulin Glargine (Lantus Solostar Pen) 8 unit QAM SC 02/09/17 09:00 03/11/17 08:59 02/11/17 10:06 8 UNIT Insulin Glargine (Lantus Solostar Pen) 13 unit QPM SC 02/08/17 21:00 03/10/17 20:59 02/10/17 20:39 13 UNIT Metoprolol Succinate (Toprol Xl Tab) 100 mg DAILY PO 02/09/17 09:00 03/11/17 08:59 Future Hold Insulin Aspart (novoLOG ASPART) SLIDING SCALE G... ACHS SC 02/08/17 16:00 03/10/17 15:59 Albuterol/ Ipratropium (Duoneb) 3 ml Q4R PRN INH 02/08/17 11:15 03/10/17 11:14 Glucose (Glucose 40% Gel) 15-30 GRAMS 15 GRAMS... UD PRN PO 02/08/17 14:00 03/10/17 13:59 Glucose (Glucose Chew Tab) 4-8 Tablets 4 Tabl... UD PRN PO 02/08/17 14:00 03/10/17 13:59 Dextrose (Dextrose 50% 50ML Syringe) 25-50ML OF 50% DW IV FOR... UD PRN IV 02/08/17 14:00 03/10/17 13:59 Glucagon 1 mg 1 mg UD PRN SQ 02/08/17 14:00 03/10/17 13:59 Dobutamine HCl (DOBUTamine / D5W) 250 ml @ 0 mls/hr Q0M PRN IV 02/08/17 14:30 03/10/17 14:29 02/10/17 03:35 6.1 MLS/HR Ferrous Sulfate (Feosol Tab) 325 mg BIDM PO 02/08/17 16:45 03/10/17 16:44 02/11/17 10:07 325 MG Vancomycin HCl (Consult) 1 ea UD PRN N/A 02/10/17 02:45 03/12/17 02:44 Spironolactone 25 mg 25 mg QAM PO 02/11/17 09:00 03/13/17 08:59 02/11/17 10:06 25 MG Vancomycin HCl/ Sodium Chloride (Vancomycin Inj/ Nss 250ml) 270 ml @ 125 mls/hr Q18H IV 02/10/17 14:00 02/24/17 13:59 02/11/17 10:05 125 MLS/HR (Airam Jones, PA-C) Objective Vital Signs Date Time Temp Pulse Resp B/P Pulse Ox O2 Delivery O2 Flow Rate FiO2 02/11/17 15:24 36.1 88 16 93/61 98 Room Air 02/11/17 12:00 Room Air 02/11/17 11:53 36.3 84 16 100/69 99 Room Air 02/11/17 08:00 Room Air 02/11/17 07:56 36.3 94 18 110/75 99 Room Air 02/11/17 04:00 Room Air 02/11/17 03:59 37.0 75 18 97/64 97 Room Air 02/10/17 23:59 Room Air 02/10/17 23:22 36.8 77 19 96/66 100 Room Air 02/10/17 20:00 Room Air 02/10/17 19:17 36.4 77 19 116/72 100 Room Air 02/10/17 16:00 Room Air (Airam Jones, PA-C) Physical Exam General Appearance: no apparent distress, + thin Eyes: sclerae normal ENT: hearing grossly normal Neck: supple, no JVD, trachea midline Respiratory/Chest: lungs clear, normal breath sounds, no respiratory distress, no accessory muscle use Cardiovascular: regular rate, rhythm, no gallop, + systolic murmur Abdomen: normal bowel sounds, non tender, soft Extremities: no pedal edema, no calf tenderness Neurologic/Psychiatric: alert Skin: normal color, warm/dry (Airam Jones, PA-C) Laboratory Results Last 24 Hours Test 02/10/17 16:19 02/10/17 20:02 02/11/17 00:49 02/11/17 05:55 Bedside Glucose 112 mg/dl 121 mg/dl Sodium Level 139 mmol/L 136 mmol/L Potassium Level 3.7 mmol/L 4.0 mmol/L Chloride Level 104 mmol/L 103 mmol/L Carbon Dioxide Level 24 mmol/L 24 mmol/L Anion Gap 11.0 mmol/L 9.0 mmol/L Blood Urea Nitrogen 44 mg/dl 44 mg/dl Creatinine 1.40 mg/dl 1.40 mg/dl Est Creatinine Clear Calc Drug Dose 40.8 ml/min 43.8 ml/min Estimated GFR () 55.0 55.0 Estimated GFR (Non- 47.5 47.5 BUN/Creatinine Ratio 31.4 31.3 Random Glucose 80 mg/dl 69 mg/dl Calcium Level 7.8 mg/dl 8.0 mg/dl Phosphorus Level 3.0 mg/dl Magnesium Level 2.4 mg/dl 2.3 mg/dl White Blood Count 5.89 K/uL Red Blood Count 3.74 M/uL Hemoglobin 12.5 g/dL Hematocrit 35.9 % Mean Corpuscular Volume 96.0 fL Mean Corpuscular Hemoglobin 33.4 pg Mean Corpuscular Hemoglobin Concent 34.8 g/dl RDW Standard Deviation 52.7 fL RDW Coefficient of Variation 15.1 % Platelet Count 74 K/uL Mean Platelet Volume 11.4 fL Activated Partial Thromboplast Time 56.0 SECONDS Partial Thromboplastin Ratio 2.2 Total Bilirubin 1.3 mg/dl Aspartate Amino Transf (AST/SGOT) 26 U/L Alanine Aminotransferase (ALT/SGPT) 66 U/L Alkaline Phosphatase 97 U/L Total Protein 5.2 gm/dl Albumin 2.4 gm/dl Globulin 2.8 gm/dl Albumin/Globulin Ratio 0.9 Test 02/11/17 07:00 02/11/17 11:28 02/11/17 11:29 Bedside Glucose 109 mg/dl 419 mg/dl 132 mg/dl (Airam Jones, NHIC) Assessment and Plan 81 y/o male, with PMHx of CAD s/p CT, 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 Acute NSTEMI with Acute on Chronic Systolic Congestive Heart Failure (EF 21%): Trops trending down - Endstage congestive heart failure - with end organ damage - Dobutamine 3 mcg/kg/min PRN titration - Cardiology following - recommendations reviewed -- Plan to DC ICD and continue dobutamine until discharge; Lasix administered today -- Heparin drip discontinued - Palliative care following - recommendations reviewed -- Plan for discharge home on hospice - recommendations for scopolamine patch and Roxanol Acute on Chronic Renal Insufficiency 2/2 Poor Cardiac Output/Hypotension - Creatinine improving and currently at 1.4 - Nephrology following - recommendations reviewed - at current time we will sign off Fluid & Electrolytes: Hypokalemia - Abnormalities currently resolved - ultimate decision for hospice - will stop further blood draws - Spironolactone 25 mg daily - consideration for hyperkalemia Hypotension: - Metoprolol on hold - inotropic support + BCx - Gram + Cocci x 1 - H/O PNA - Treated with Levaquin (Completed 02/07) - Vancomycin per pharmacy dosing - DuoNeb PRN SOB/wheezing T2DM: - Lantus 8 units in AM and 13 units in PM with SSI Ischemic CVA: - ASA 81 mg daily and Plavix 75 mg daily Iron Deficiency Anemia: - Ferrous sulfate 325 mg BID DVT prophylaxis: - RAMAKRISHNA and SCDs Code Status: DNR/DNI Disposition: - DC home with hospice services - hopeful discharge with hospice services established - Consideration for de-escalation home medications (will discuss with POA) - will add scopolamine patch and Roxanol PRN -- Plan for meeting with POA tomorrow - can discuss continuing current medical care vs comfort measures as patient is to move to hospice Continued [facility] stay due to: multiple IV medications needed Discharge planning: home with Hospice (Airam Jones, PA-C) Addendum Patient was seen and examined by me I discussed and formulated the assessment and plan with Miss Airam Jones (KARSTEN) , I also agree with her physical exam followed commands plan to DC home on hospice sydni Chase [facility] hospitalist (Sydni Felder MD)
[2017-02-11] MEDS ORDERED: SCOPOLAMINE 1.5 MG TDSY TD ONE (16:00)
[2017-02-11] MEDS: DOBUTamine / D5W 500 MG IV PRN (19:43)
[2017-02-11 19:45] VITALS: BP 106/62; PULSE 85; TEMP 36.5; O2SAT 96
[2017-02-11 23:45] VITALS: BP 94/59; PULSE 95; TEMP 36.6; O2SAT 96
[2017-02-12] VITALS (7 sets, daily range): BP systolic 96–104; BP diastolic 65–78; PULSE 90–100; TEMP 36.3–37.1; O2SAT 95–98; Ht 177.8 cm; Wt 70.6 kg
[2017-02-12] MEDS: CHECK SCOPOLAMINE PATCH PLACEMENT SCH ×4 (00:20→23:11)
[2017-02-12] MEDS: VANCOMYCIN INJ 1,000 MG in SODIUM CHLORIDE 0.9% 250ML 250 ML IV SCH (01:18)
[2017-02-12] MEDS ORDERED: VANCOMYCIN TROUGH SCH (01:30)
[2017-02-12 06:16] LABS: HEMATOCRIT 36.7 % (42-52); MEAN CELL VOLUME 95.8 fL (80-100); MEAN CORPUSCULAR HEMOGLOBIN 33.7 pg (25-34); MEAN CORPUSCULAR HGB CONC 35.1 g/dl (32-36); RED BLOOD COUNT 3.83 M/uL (4.7-6.1); WHITE BLOOD COUNT 7.52 K/uL (4.8-10.8)
[2017-02-12 06:17] LABS: COMPLETE YES; EOS % 0.8 %; IG% 0.3 %; LYMPH % 5.2 %; LYMPH ABS # 0.39 K/uL (1.2-3.4); MEAN PLATELET VOLUME 11.6 fL (7.4-10.4); MONO % 9.6 %; NEUT % 84.1 %; PLATELET COUNT 95 K/uL (130-400)
[2017-02-12 06:41] LABS: PARTIAL THROMBOPLASTIN RATIO 1.3
[2017-02-12 06:50] LABS: BUN/CREATININE RATIO 30.5 (10-20); CALCIUM 7.9 mg/dl (8.5-10.1); CREATININE 1.2 mg/dl (0.60-1.40); MAGNESIUM 2.4 mg/dl (1.8-2.4); POTASSIUM 3.9 mmol/L (3.5-5.1)
[2017-02-12 06:52] LABS: ALB/GLOB RATIO 0.9 (0.9-2); PHOSPHORUS 2.7 mg/dl (2.5-4.9)
[2017-02-12] MEDS: INSULIN ASPART 100 UNITS/ML 3 ML PEN SC SCH (07:00)
--- NOTE | 2017-02-12 11:03 | Palliative Care Progress Note ---
Palliative Care Progress Note Date of Service Feb 12, 2017. Subjective Pt evaluation today including: conversation w/ patient, conversation w/ family , physical exam, conversation w/ toy consultant, review of inpatient medication list Pain: denies PO Intake: tolerating diet, not much appetite Voiding: brown catheter in place -Patient is awake and alert. -Caregiver/RODRIGUEZ Viveros at the bedside. -Patient to go home with hospice. -Dobutamine infusing until discharge. -AICD shut off yesterday. -Patient denies any pain or discomfort at this time. -Roxanol and scopolamine patch started yesterday for comfort. -POLST form done. Review of Systems unable to obtain- aphasic and garbled speech. Objective Vital Signs Date Time Temp Pulse Resp B/P Pulse Ox O2 Delivery O2 Flow Rate FiO2 02/12/17 08:00 Room Air 02/12/17 07:59 36.4 97 16 102/71 97 Room Air 02/12/17 04:00 Room Air 02/12/17 02:45 36.4 92 18 100/68 97 Room Air 02/12/17 00:01 96 Room Air 02/11/17 23:45 36.6 95 16 94/59 96 Room Air 02/11/17 20:00 Room Air 02/11/17 19:45 36.5 85 18 106/62 96 Room Air 02/11/17 16:00 Room Air 02/11/17 15:24 36.1 88 16 93/61 98 Room Air 02/11/17 12:00 Room Air 02/11/17 11:53 36.3 84 16 100/69 99 Room Air Physical Exam General Appearance: no apparent distress, + cachetic, + thin Neck: no JVD Respiratory/Chest: no respiratory distress, no accessory muscle use, + decreased breath sounds Cardiovascular: regular rate, rhythm, no edema, + normal peripheral pulses Abdomen: normal bowel sounds, soft Neurologic/Psychiatric: alert, + aphasia (and garbled speech) Laboratory Results Last 24 Hours Test 02/11/17 11:28 02/11/17 11:29 02/11/17 16:22 02/11/17 20:04 Bedside Glucose 419 mg/dl 132 mg/dl 112 mg/dl 119 mg/dl Test 02/12/17 01:14 02/12/17 05:47 3/28/17 06:51 02/12/17 07:09 Vancomycin Level Trough 20.8 mcg/ml White Blood Count 7.52 K/uL Red Blood Count 3.83 M/uL Hemoglobin 12.9 g/dL Hematocrit 36.7 % Mean Corpuscular Volume 95.8 fL Mean Corpuscular Hemoglobin 33.7 pg Mean Corpuscular Hemoglobin Concent 35.1 g/dl Platelet Count 95 K/uL Mean Platelet Volume 11.6 fL Neutrophils (%) (Auto) 84.1 % Lymphocytes (%) (Auto) 5.2 % Monocytes (%) (Auto) 9.6 % Eosinophils (%) (Auto) 0.8 % Basophils (%) (Auto) 0.0 % Neutrophils # (Auto) 6.33 K/uL Lymphocytes # (Auto) 0.39 K/uL Monocytes # (Auto) 0.72 K/uL Eosinophils # (Auto) 0.06 K/uL Basophils # (Auto) 0.00 K/uL RDW Standard Deviation 52.3 fL RDW Coefficient of Variation 15.1 % Immature Granulocyte % (Auto) 0.3 % Immature Granulocyte # (Auto) 0.02 K/uL Activated Partial Thromboplast Time 32.7 SECONDS Partial Thromboplastin Ratio 1.3 Sodium Level 136 mmol/L Potassium Level 3.9 mmol/L Chloride Level 104 mmol/L Carbon Dioxide Level 27 mmol/L Anion Gap 5.0 mmol/L Blood Urea Nitrogen 37 mg/dl Creatinine 1.20 mg/dl Est Creatinine Clear Calc Drug Dose 49.8 ml/min Estimated GFR () 66.3 Estimated GFR (Non- 57.2 BUN/Creatinine Ratio 30.5 Random Glucose 51 mg/dl Calcium Level 7.9 mg/dl Phosphorus Level 2.7 mg/dl Magnesium Level 2.4 mg/dl Total Bilirubin 1.4 mg/dl Aspartate Amino Transf (AST/SGOT) 24 U/L Alanine Aminotransferase (ALT/SGPT) 63 U/L Alkaline Phosphatase 105 U/L Total Protein 5.4 gm/dl Albumin 2.6 gm/dl Globulin 2.8 gm/dl Albumin/Globulin Ratio 0.9 Bedside Glucose 51 mg/dl 53 mg/dl Test 02/12/17 07:45 Bedside Glucose 73 mg/dl Assessment and Plan Problem list: Elevated troponin Ischemic cardiomyopathy with EF 21% TRAE on CKD stage III Hypotension Oliguria Decreased PO intake Elevated LFTs Recent history of pneumonia CVA with residual aphasia and garbled speech Goals of care Palliative care plan: discussed with patient, Jackeline FRIAS, and Airam Jones PA-C -Home with hospice. company manager to refer. 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 This coincides with the patient's living will which is on chart. -Continue Roxanol 5mg PO Q3h PRN for pain or SOB, continue scopolamine patch. -Continue cardiac medications. -I spoke with Airam Jones PA-C, about the patient hypo/hyperglycemic events. Most recently he has been hyperglycemic, but the patient is asymptomatic. My personal recommendation would be to not treat this with checking blood sugars and starting insulin at home. Once the dobutamine is turned off, I believe this patient's time will be very limited and as long as he is comfortable and not experiencing symptoms, I would not add another new treatment at home. Airam will talk with Jackeline about this. -AICD was shut off. -Continue Brown catheter at home for ease and comfort. Thank you for involving me in the care of this patient. Contact me with any further needs. Palliative Performance Scale: 20 % Discharge planning: home with Hospice
[2017-02-12] MEDS: FERROUS SULFATE 325 MG TAB PO SCH (11:16)
[2017-02-12] MEDS: CLOPIDOGREL BISULFATE 75 MG TAB PO SCH (11:16)
[2017-02-12] MEDS: ASPIRIN 81 MG ECTAB PO SCH (11:16)
[2017-02-12] MEDS: SPIRONOLACTONE 25 MG TAB PO SCH (11:16)
--- NOTE | 2017-02-12 14:26 | Progress Note ---
Subjective Date of Service: Feb 12, 2017. Subjective Pt evaluation today including: conversation w/ patient, conversation w/ family (RODRIGUEZ Viveros), physical exam, chart review, lab review, conversation w/ inside sales consultant (Valeria Prater - Palliative), review of inpatient medication list Patient seen and evaluated. At this point patient will be converted to comfort measures only and plan for discharge home tomorrow on hospice. Discussed de-escalation of medications with RODRIGUEZ Viveros. At this time we will discontinue all unnecessary medications and only leave those for comfort. Specifically discussed utilizing insulin therapy. Patient is showing signs of failure to thrive. Multiple hypoglycemic episodes this morning however patient is asymptomatic per nursing. Jackeline states she feels insulin therapy can be discontinued and BSG checks as these are irritative to the patient. Patient currently maintained on dobutamine drip with low normal blood pressure readings. Patient's ICD has been disconnected. Suspect his blood pressure will drastically decrease after dobutamine discontinued. Problem List Medical Problems: (1) Acute kidney injury Status: Acute (2) Elevated liver function tests Status: Acute (3) Elevated troponin Status: Acute (4) Febrile Status: Acute (5) Hyperglycemia Status: Acute (6) Hypokalemia Status: Acute (7) Near syncope Status: Acute (8) Weakness Status: Acute Review of Systems ROS largely deferred to language barrier (expressive aphasia). Objective Vital Signs Date Time Temp Pulse Resp B/P Pulse Ox O2 Delivery O2 Flow Rate FiO2 02/12/17 12:00 Room Air 02/12/17 11:41 36.3 90 16 102/78 96 Room Air 02/12/17 08:00 Room Air 02/12/17 07:59 36.4 97 16 102/71 97 Room Air 02/12/17 04:00 Room Air 02/12/17 02:45 36.4 92 18 100/68 97 Room Air 02/12/17 00:01 96 Room Air 02/11/17 23:45 36.6 95 16 94/59 96 Room Air 02/11/17 20:00 Room Air 02/11/17 19:45 36.5 85 18 106/62 96 Room Air 02/11/17 16:00 Room Air 02/11/17 15:24 36.1 88 16 93/61 98 Room Air Physical Exam General Appearance: no apparent distress, + thin Eyes: sclerae normal Neck: supple, no JVD, trachea midline Respiratory/Chest: lungs clear, normal breath sounds, no respiratory distress, no accessory muscle use, + decreased breath sounds Cardiovascular: regular rate, rhythm, no gallop, no murmur Abdomen: normal bowel sounds, non tender, soft Extremities: non-tender, no pedal edema Neurologic/Psychiatric: alert Skin: normal color, warm/dry Laboratory Results Last 24 Hours Test 02/11/17 16:22 02/11/17 20:04 02/12/17 01:14 02/12/17 05:47 Bedside Glucose 112 mg/dl 119 mg/dl Vancomycin Level Trough 20.8 mcg/ml White Blood Count 7.52 K/uL Red Blood Count 3.83 M/uL Hemoglobin 12.9 g/dL Hematocrit 36.7 % Mean Corpuscular Volume 95.8 fL Mean Corpuscular Hemoglobin 33.7 pg Mean Corpuscular Hemoglobin Concent 35.1 g/dl Platelet Count 95 K/uL Mean Platelet Volume 11.6 fL Neutrophils (%) (Auto) 84.1 % Lymphocytes (%) (Auto) 5.2 % Monocytes (%) (Auto) 9.6 % Eosinophils (%) (Auto) 0.8 % Basophils (%) (Auto) 0.0 % Neutrophils # (Auto) 6.33 K/uL Lymphocytes # (Auto) 0.39 K/uL Monocytes # (Auto) 0.72 K/uL Eosinophils # (Auto) 0.06 K/uL Basophils # (Auto) 0.00 K/uL RDW Standard Deviation 52.3 fL RDW Coefficient of Variation 15.1 % Immature Granulocyte % (Auto) 0.3 % Immature Granulocyte # (Auto) 0.02 K/uL Activated Partial Thromboplast Time 32.7 SECONDS Partial Thromboplastin Ratio 1.3 Sodium Level 136 mmol/L Potassium Level 3.9 mmol/L Chloride Level 104 mmol/L Carbon Dioxide Level 27 mmol/L Anion Gap 5.0 mmol/L Blood Urea Nitrogen 37 mg/dl Creatinine 1.20 mg/dl Est Creatinine Clear Calc Drug Dose 49.8 ml/min Estimated GFR () 66.3 Estimated GFR (Non- 57.2 BUN/Creatinine Ratio 30.5 Random Glucose 51 mg/dl Calcium Level 7.9 mg/dl Phosphorus Level 2.7 mg/dl Magnesium Level 2.4 mg/dl Total Bilirubin 1.4 mg/dl Aspartate Amino Transf (AST/SGOT) 24 U/L Alanine Aminotransferase (ALT/SGPT) 63 U/L Alkaline Phosphatase 105 U/L Total Protein 5.4 gm/dl Albumin 2.6 gm/dl Globulin 2.8 gm/dl Albumin/Globulin Ratio 0.9 Test 02/12/17 06:51 02/12/17 07:09 02/12/17 07:34 02/12/17 07:45 Bedside Glucose 51 mg/dl 53 mg/dl 65 mg/dl 73 mg/dl Test 02/12/17 11:10 Bedside Glucose 100 mg/dl Assessment and Plan 81 y/o male, with PMHx of CAD s/p [place], 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 Comfort Measures - Hospice: - All home medications have been discontinued at this time - Implement comfort measures only - no further blood draws/BSGs - Scopolamine patch and Roxanol PRN pain/SOB Acute NSTEMI with Acute on Chronic Systolic Congestive Heart Failure: End-Stage with Failure to Thrive - Dobutamine gtt with PRN titration - Cardiology following -- D/C'd ICD and continue dobutamine until discharge - Palliative care following - recommendations reviewed -- Plan for discharge home on hospice - recommendations for scopolamine patch and Roxanol Acute on Chronic Renal Insufficiency 2/2 Poor Cardiac Output/Hypotension - Creatinine improved - Nephrology followed - currently signed-off DVT prophylaxis: - RAMAKRISHNA and SCDs Code Status: DNR/DNI Disposition: - Updated POA over the phone -she met in person with palliative care - plan for discharge home tomorrow on hospice Discharge planning: home with Hospice
[2017-02-13] VITALS: BP 93/76; PULSE 90; TEMP 36.9; O2SAT 96
[2017-02-13] MEDS: DOBUTamine / D5W 500 MG IV PRN (02:00)
[2017-02-13 07:20] VITALS: BP 93/60; PULSE 80; TEMP 36.5; O2SAT 95
[2017-02-13] MEDS: CHECK SCOPOLAMINE PATCH PLACEMENT SCH ×3 (08:00→23:09)
--- NOTE | 2017-02-13 10:07 | CARDIOLOGY PROGRESS NOTE ---
DATE: 02/13/2017 TIME: 9:44 a.m. SUBJECTIVE: He denies chest pain, shortness of breath. There are no overnight issues reported at this time. When I ask if he is feeling better, he said no. He does appear to be excited with the anticipation of returning home soon. Palliative care has been following. I spoke with Jackeline Ryan, his power of technical account manager, via telephone. She states that she was in the midst of meeting with hospice to help arrange home care and she is anticipating possible home hospice tomorrow. OBJECTIVE: VITAL SIGNS: Temperature 36.5 degrees, heart rate 80 beats per minute, respiration rate 20, blood pressure 93/60 mmHg, oxygen saturation 95% on room air. I's and O's charted is positive 965 mL. GENERAL: No acute distress. He is alert. NECK: No significant JVD. CARDIAC: No ventricular heave. Regular, normal S1 and S2, 2/6 holosystolic murmur best heard at the apex. No rubs or gallops. LUNGS: Clear to auscultation bilaterally. ABDOMEN: Soft, nontender, nondistended. Normoactive bowel sounds. EXTREMITIES: 1+ bilateral lower extremity edema. No cyanosis. PSYCHIATRIC: Affect appears appropriate. MEDICATIONS: Include dobutamine drip at 3 mcg/kg per minute, scopolamine patch, prednisone 50 mg daily. LABORATORY DATA: Reviewed from 02/12/2017. Hemoglobin was 12.9, platelets were 95, glucose was 100. ASSESSMENT AND PLAN: 1. Acute on chronic systolic congestive heart failure: He did present with overall poor perfusion, likely secondary to his poor left ventricular systolic function. Continue dobutamine until discharge at which time it can be discontinued. Would recommend using Lasix as needed if he appears to have respiratory distress from heart failure. Hospice services will continue to follow him at home. 2. Ischemic cardiomyopathy: ICD therapy has been requested for discontinuation with Dr. Mijares of the EP service. Beta michael has been on hold secondary to hypotension and he has had symptomatic hypotension in the past. No ERASMO inhibitors due to symptomatic hypotension and hyperkalemia. 3. Non-ST elevation myocardial infarction: Conservative therapy. Hospice care has been recommended and planned for home hospice on discharge. 4. Disposition: Home hospice as noted above. Cardiology will officially sign off; however, we are happy to help with management of heart failure if we can be of any assistance. Jackeline Ryan was also notified that if there are any issues, questions or concerns once he returns home from a cardiac perspective, we would be happy to help assist in his care.
[2017-02-13 12:11] VITALS: BP 93/70; PULSE 110; TEMP 37; O2SAT 98
--- NOTE | 2017-02-13 15:07 | Progress Note ---
Subjective Date of Service: Feb 13, 2017. Subjective Pt evaluation today including: conversation w/ patient, physical exam, chart review, review of inpatient medication list Patient seen and evaluated. No acute events overnight. Patient continues to have no complaints however is difficult to understand due to expressive aphasia. Patient appeared to be trying to ask something this morning but was unable to decipher what. Plan is to wean dobutamine drip. Once hospice services established he will be suitable for discharge. Problem List Medical Problems: (1) Acute kidney injury Status: Acute (2) Elevated liver function tests Status: Acute (3) Elevated troponin Status: Acute (4) Febrile Status: Acute (5) Hyperglycemia Status: Acute (6) Hypokalemia Status: Acute (7) Near syncope Status: Acute (8) Weakness Status: Acute Review of Systems ROS largely deferred due to expressive aphasia. Denies CP, SOB, N/V, abdominal pain. Medications Current Inpatient Medications Medications (Trade) Dose Ordered Sig/Em Route Start Time Stop Time Status Last Admin Dose Admin Al Hydrox/Mg Hydrox/Simethicone (Maalox Max Susp) 15 ml Q4H PRN PO 02/08/17 11:15 03/10/17 11:14 Magnesium Hydroxide (Milk Of Magnesia Susp) 30 ml Q12H PRN PO 02/08/17 11:15 03/10/17 11:14 Ondansetron HCl (Zofran Inj) 4 mg Q6H PRN IV 02/08/17 11:15 03/10/17 11:14 Nitroglycerin (Nitrostat Tab) 0.4 mg UD PRN SL 02/08/17 11:15 03/10/17 11:14 Polyethylene (Miralax Powder Packet) 17 gm DAILY PRN PO 02/08/17 11:15 03/10/17 11:14 Metoprolol Succinate (Toprol Xl Tab) 100 mg DAILY PO 02/09/17 09:00 03/11/17 08:59 Future Hold Albuterol/ Ipratropium (Duoneb) 3 ml Q4R PRN INH 02/08/17 11:15 03/10/17 11:14 Glucose (Glucose 40% Gel) 15-30 GRAMS 15 GRAMS... UD PRN PO 02/08/17 14:00 03/10/17 13:59 Glucose (Glucose Chew Tab) 4-8 Tablets 4 Tabl... UD PRN PO 02/08/17 14:00 03/10/17 13:59 Dextrose (Dextrose 50% 50ML Syringe) 25-50ML OF 50% DW IV FOR... UD PRN IV 02/08/17 14:00 03/10/17 13:59 Glucagon 1 mg 1 mg UD PRN SQ 02/08/17 14:00 03/10/17 13:59 Dobutamine HCl (DOBUTamine / D5W) 250 ml @ 0 mls/hr Q0M PRN IV 02/08/17 14:30 03/10/17 14:29 02/13/17 02:00 500 MLS/HR Scopolamine (Transderm-Scop Patch) 1.5 mg Q3D@HS TD 02/14/17 21:00 03/16/17 20:59 Miscellaneous (Remove Transderm-Scop Patch) 1 ea Q3D@2059 N/A 02/14/17 20:59 03/16/17 20:58 Miscellaneous Information (Check Scopolamine Patch Placement) 1 ea QS N/A 02/12/17 00:00 03/14/17 00:00 02/13/17 08:00 1 EA Morphine Sulfate (Roxanol Oral Soln) 5 mg Q3H PRN PO 02/11/17 15:30 02/25/17 15:29 Prednisone (PredniSONE TAB) 50 mg DAILY PO 02/12/17 21:00 03/14/17 20:59 02/13/17 08:43 50 MG Objective Vital Signs Date Time Temp Pulse Resp B/P Pulse Ox O2 Delivery O2 Flow Rate FiO2 02/13/17 12:15 Room Air 02/13/17 12:11 37.0 110 20 93/70 98 Room Air 02/13/17 08:15 Room Air 02/13/17 07:20 36.5 80 20 93/60 95 Room Air 02/13/17 04:00 Room Air 02/13/17 00:01 Room Air 02/13/17 00:00 36.9 90 20 93/76 96 Room Air 02/12/17 20:00 Room Air 02/12/17 19:00 36.8 91 16 98/65 98 Room Air 02/12/17 16:15 Room Air 02/12/17 16:01 37.1 92 16 104/72 95 02/12/17 16:00 36.4 100 16 96/70 96 Room Air Physical Exam General Appearance: no apparent distress, + thin Eyes: sclerae normal ENT: hearing grossly normal Neck: supple, no JVD, trachea midline Respiratory/Chest: lungs clear, no respiratory distress, no accessory muscle use Cardiovascular: regular rate, rhythm, no gallop, no murmur Abdomen: normal bowel sounds, non tender, soft Neurologic/Psychiatric: alert Skin: normal color, warm/dry Assessment and Plan 81 y/o male, with PMHx of CAD s/p OH, 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
[2017-02-13 15:33] VITALS: BP 91/62; PULSE 97; TEMP 36.5; O2SAT 99
[2017-02-13 19:19] VITALS: BP 95/76; PULSE 103; TEMP 36.4; O2SAT 99
--- NOTE | 2017-02-14 07:18 | Death Summary ---
Summary of Admission Date Feb 08, 2017 at 11:21 Date & Time of Feb 14, 2017. 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 Patient was admitted on 01/27/17 due to PNA, CHF, and TREA. Patient was discharged on 02/01/17 w/ 24-hour caregivers. History came largely from caregiver present. Since discharge, patient has been eating/drinking little to none. On 02/07, patient drank ~2 glasses of water, which was the most he has drank since discharge. He completed his entire course of Levaquin on 02/07. Per caregiver, no fevers/chills , cough, or sputum production. +SOB w/ ambulation- ongoing issue, caregiver attributes it to no eating/drinking. +weakness. According to caregiver, patient has gained 3.5 pounds since yesterday. Patient admits to difficulty w/ urination. Per caregiver, very little urine output over the last 5 days. Patient denies any CP. Limited ROS due to patient's condition. HOSPITAL COURSE: Mr. Alcocer was recently admitted to [facility] due to pneumonia complicated by acute on chronic renal failure. He finished a full course of antibiotic therapy and was discharged home. Unfortunately, oral intake was reduced and began to exhibit signs of failure to thrive. Due to extensive comorbidities cardiology and nephrology were consulted. Upon admission, he was expressing signs of hypervolemia despite decreased intravascular volume suggesting acute on chronic heart failure. He also had acute renal failure on admission. Patient appeared to be in cardiorenal syndrome. Patient remained essentially hypotensive with no response to hydration. Patient was initiated on a dobutamine gtt. Due to the acute on chronic systolic congestive heart failure and cardiorenal syndrome overall prognosis was poor, and it appeared he was decompensated from a cardiac standpoint. In addition, evidence of elevated troponins with suggestion of an STEMI occurred. Large communication barrier secondary to expressive aphasia however patient has established living will with DNR/DNI status with wishes to not undergo invasive procedures. Due to poor prognosis, palliative care was consulted for goals of care. Continued medical treatment was given until the ultimate decision for home with hospice services was established. During admission patient is without any complaints, again large communication barrier due to expressive aphasia. Dobutamine gtt maintained during admission with average BP readings of 90s/60s with improvement in acute renal insufficiency. Coordination placed with patient's caregiver and plan for comfort measures only was initiated. All nonessential medications were discontinued. Glucose monitoring and further laboratories were discontinued. Scopolamine patch and Roxanol PRN SOB/Pain was initiated for comfort. Prednisone was instituted for suspected adrenal insufficiency. His ICD was disconnected. His Dobutamine gtt was weaned in preparation for discharge. Unfortunately, patient ceased to breathe and no palpable pulses appreciated. Time noted of 2344. Copy To Nini Quick PA-C
[2017-02-14] MEDS ORDERED: SCOPOLAMINE 1.5 MG TDSY TD SCH (21:00)
--- NOTE | 2017-03-22 11:36 | EDITING REQUIRED CODING QUERY ---
CODING QUERY To promote full compliance with coding requirements relating to patient care, provider participation is requested in all cases of mink rancher uncertainty. Please assist us with the question(s) below: Coding Question(s): Please clarify the diagnosis of trae on ckd and acute on chronic renal insufficiency these code out different. Physician's Response(s): (x ) TRAE ON CKD 3 ( ) ACUTE ON CHRONIC RENAL INSUFFICENCY ( ) OTHER (PLEASE SPECIFY) Thank you Shilpi Lewis Principal Diagnosis: "_that condition established after study, to be chiefly responsible for occasioning the admission of the patient to the hospital for care." Co-Existing Principal Diagnosis: "_when two or more diagnoses equally meet the criteria for principal diagnosis as determined by the circumstances of admission, diagnostic work up, and/or therapy provided, and the Alphabetic Index, Tabular List, or another coding guideline does not provide sequencing direction, any one of the diagnoses may be sequenced first." "When the physician has documented what appears to be a current diagnosis in the body of the record, but has not included the diagnosis in the final diagnostic statement, the physician should be asked whether the diagnosis should be added." (Source [facility] 2 QTR90. p3-4)
== END 2017-02-13 23:44 | disposition expired ==
LOC: ENRESERVTM → ENRESERVDT → C.EDB 08:33 → C.2T 11:21
PROVIDERS: ADMIT Internal Medicine; ATTEND Internal Medicine
PROC: 0T9B70Z Drainage of Bladder with Drainage Device, Via Natural or Artificial Opening (ICD-10-PCS; principal; 2017-02-08)
DX: I50.23 Acute on chronic systolic (congestive) heart failure (principal); I21.4 Non-ST elevation (NSTEMI) myocardial infarction; I13.0 Hypertensive heart and chronic kidney disease with heart failure and stage 1 through stage 4 chronic kidney disease, or unspecified chronic kidney disease; E27.40 Unspecified adrenocortical insufficiency; N17.9 Acute kidney failure, unspecified; I25.10 Atherosclerotic heart disease of native coronary artery without angina pectoris; I25.2 Old myocardial infarction; I25.5 Ischemic cardiomyopathy; N18.3 Chronic kidney disease, stage 3 (moderate); Z51.5 Encounter for palliative care; I95.9 Hypotension, unspecified; Z66 Do not resuscitate; Z95.810 Presence of automatic (implantable) cardiac defibrillator; Z81.8 Family history of other mental and behavioral disorders; Z82.49 Family history of ischemic heart disease and other diseases of the circulatory system; R74.8 Abnormal levels of other serum enzymes; D64.9 Anemia, unspecified; T68.XXXA Hypothermia, initial encounter; R34 Anuria and oliguria; Z79.82 Long term (current) use of aspirin; Z79.02 Long term (current) use of antithrombotics/antiplatelets; E11.22 Type 2 diabetes mellitus with diabetic chronic kidney disease; I69.320 Aphasia following cerebral infarction; D50.9 Iron deficiency anemia, unspecified; R62.7 Adult failure to thrive; X58.XXXA Exposure to other specified factors, initial encounter